=== PATIENT | male | born 1965 | race Caucasian/White ===

== ENCOUNTER 2022-09-01 10:21 | Emergency (ER) | payer MEDICARE, MEDICAID, SELFPAY ==
[2022-09-01 10:21] VITALS: BP 130/63; PULSE 91; RESP 18; TEMP 36.8; O2SAT 94; BMI 36.5
--- NOTE | 2022-09-01 10:41 | PC.NURSE ---
JESUS ALBARADO at
--- NOTE | 2022-09-01 10:49 | HMH.EDGENADL ---
Discharge Plan Disposition Chief Complaint: Anxiety Referrals Follow up/Referrals: Andrei Adams MD [Primary Care Provider] - See instructions Activity Restrictions/Add. Instructions Additional Instructions/Restrictions: At this time was felt you are safe to be discharged from the emergency department. If new or worsening symptoms please not hesitate to return for continued evaluation. Clinical Impressions Clinical Impression: Anxiety Discharge ED Provider: Francis Mejia General Adult HPI General Chief complaint: Anxiety Stated complaint: anxiety Time Seen by Provider: 09/01/22 10:49 History of Present Illness HPI narrative: Patient is a 56-year-old male with no pertinent past medical history who presents emergency department for not wanting to go back to his assisted living facility at [facility]. History is obtained by patient at bedside he states that he has been at multiple assisted living facilities before, he has been at the [facility] for which he got kicked out for masturbating in front of other residents. Living at [facility] is causing him significant anxiety. Patient has anxiety at baseline. Due to refusing to return to [facility] while grocery shopping EMS was called and he presents here for continued evaluation. He has no other acute complaints at this time. Related Data Allergies Allergy/AdvReac Type Severity Reaction Status Date / Time pollen extracts Allergy Verified 09/01/22 11:02 [facility] Disclaimer: The information contained in this section may have been updated after the patient was seen, as this information can be updated by other users. Social History Smoking Status: Smoker, status unknown alcohol intake: former current occupational status: unemployed Travel in the last 8 weeks: None ROS Obtained: Yes Systems reviewed as appropriate & no additional complaints except as documented Physical Exam General General appearance: alert and in no apparent distress Head Head exam: atraumatic and normocephalic Eye Eye exam: Present PERRL and EOMI ENT ENT exam: Present mucous membranes moist Neck Neck exam: Present normal inspection Chest Chest inspection: Present normal inspection and symmetric chest wall rise Respiratory Respiratory exam: Present normal lung sounds bilaterally; Absent respiratory distress Cardiovascular Cardiovascular exam: Present regular rate and normal rhythm Abdominal Exam Abdominal exam: Present soft; Absent tenderness Extremities Exam Extremities exam: Present normal inspection Neurological Exam Neurological exam: Present alert and oriented X3 Psychiatric Psychiatric exam: Present normal affect Skin Skin exam: Present warm and dry Medical Decision Making Kenan Inquiry Pt receiving controlled substance: No Vital Signs: 09/01/22 10:21 Temperature 98.3 F Temperature Source Oral Pulse Rate [Right Radial] 91 H Respiratory Rate 18 Blood Pressure [Right Arm] 130/63 Blood Pressure Mean [Right Arm] 85 Blood Pressure Position [Right Arm] Sitting 02 Sat by Pulse Oximetry 94 L Oxygen Delivery Method Room Air Orders (Tests/Meds): ED MEDICATIONS Discontinued Medications Generic Name Dose Route Start Last Admin Trade Name Freq PRN Reason Stop Dose Admin Hydroxyzine Pamoate 50 mg 09/01/22 10:47 09/01/22 11:04 Hydroxyzine Pamoate 25mg Capsule PO 09/01/22 10:48 50 mg ONCE ONE Administration ECG Data Tracing #1: Independently interpreted by me, rate is 81, rhythm is regular, axis is normal, QTC 397, no significant ST elevation or depression in anatomical contiguous leads. Medical Decision Narrative: In summary patient is a 56-year-old male with past medical history described above who presents emergency department for evaluation of anxiety related to his living situation. Patient is hemodynamically stable and nontoxic-appearing upon arrival, afebrile. Patient states that since he did not have to ret
--- NOTE | 2022-09-01 10:52 | PC.NURSE ---
spoke with davon in care management r/t pt stating he does not [facility] Sheldon states if pt does not meet admission criteria pt will have to go [facility] and the staff there can begin to see about possible transfer to another facility notified ER
--- NOTE | 2022-09-01 11:16 | ECG_ITS ---
APPROVED REPORT Exam: Resting ECG HR:81 bpm ECG Measurements Heart Rate 81 AXES FL 168 P 41 QRSd 102 QRS 69 QT 360 T 59 QTc 397 Conclusion SINUS RHYTHM NORMAL ECG UNCONFIRMED REPORT Electronically signed by : Dave Ann MD 09/01/2022 16:42:13
--- NOTE | 2022-09-01 11:24 | PC.NURSE ---
[facility] CALLED FOR TRANSPORTATION
[2022-09-01 12:12] VITALS: BP 93/58; PULSE 88; RESP 20; O2SAT 96
--- NOTE | 2022-09-01 12:37 | PC.NURSE ---
meal tray ordered
--- NOTE | 2022-09-01 12:37 | PC.NURSE ---
multiple calls to [facility] and then [facility] for transport back to [facility]
[2022-09-01 13:52] VITALS: BP 128/70; PULSE 70; RESP 16; TEMP 36.8; O2SAT 98
== END 2022-09-01 13:58 | disposition home or self-care (01) ==
PROVIDERS: Emergency Provider Emergency Medicine; PCP Emergency Medicine
DX: F41.9 Anxiety disorder, unspecified (principal); F17.210 Nicotine dependence, cigarettes, uncomplicated; Z79.899 Other long term (current) drug therapy; Z88.8 Allergy status to other drugs, medicaments and biological substances
CPT/HCPCS: 93005; 99284

== ENCOUNTER 2022-09-18 11:24 | Emergency (ER) | payer MEDICARE, MEDICAID, SELFPAY ==
[2022-09-18] VITALS (7 sets, daily range): BP systolic 94–132; BP diastolic 47–68; PULSE 67–76; RESP 16–22; TEMP 36.7–36.8; O2SAT 96–99; BMI 33.4
--- NOTE | 2022-09-18 11:29 | HMH.EDGENADL ---
Discharge Plan Disposition Patient Disposition: Home, Self-Care Condition: Good Prescriptions Prescriptions: New ondansetron 4 mg tablet,disintegrating 4 mg PO DAILY Qty: 30 0RF Activity Restrictions/Add. Instructions Additional Instructions/Restrictions: Please follow up with your primary care physician in 2-3 days for further management. Please use zofran as needed for nausea and vomiting. Please return to ED if symptoms don't improve, bloody stools, bloody vomiting or any other concerns. Clinical Impressions Clinical Impression: Viral gastroenteritis Instructions Patient Instructions: DI for Viral Gastroenteritis -- Adult Print Language Print Language: Macedonian Discharge ED Provider: Majo Reed Adult HPI General Chief complaint: Nausea/Vomiting/Diarrhea Stated complaint: n/v/d Time Seen by Provider: 09/18/22 11:29 Mode of Arrival: Ambulatory Source of Information: Patient Limitations: No Limitations History of Present Illness HPI narrative: Clement is a 56 yo presents to the ED for N/V/D since yesterday. Patient reports one episode of non bloody non bilious emesis and x3 episodes of non bloody diarrhea. Patient is eating and drinking and reports he would like chicken broth. He denies any fevers, cough, chest pain, dyspnea, abdominal pain or other symptoms at this time. No known sick contacts or COVID exposures. No bloody stools or emesis. complaint: N/V/D Onset (ago): day(s) Related Data Previous Rx's Medication Instructions Recorded ondansetron 4 mg disintegrating 4 mg PO DAILY #30 tabs 09/18/22 tablet Allergies Allergy/AdvReac Type Severity Reaction Status Date / Time pollen extracts Allergy Verified 09/01/22 11:02 [facility] Disclaimer: The information contained in this section may have been updated after the patient was seen, as this information can be updated by other users. Social History Smoking Status: Never smoker alcohol intake: former current occupational status: unemployed Travel in the last 8 weeks: None ROS Obtained: Yes All systems reviewed & no additional complaints except as documented Physical Exam General General appearance: alert and in no apparent distress Head Head exam: atraumatic and normal inspection ENT ENT exam: Present normal exam, normal oropharynx and mucous membranes moist Neck Neck exam: Present normal inspection and full ROM Chest Chest inspection: Present normal inspection and symmetric chest wall rise Respiratory Respiratory exam: Present normal lung sounds bilaterally Cardiovascular Cardiovascular exam: Present regular rate and normal rhythm Abdominal Exam Abdominal exam: Present soft and normal bowel sounds Extremities Exam Extremities exam: Present normal inspection and full ROM Back Exam Back exam: Present normal inspection and full ROM Neurological Exam Neurological exam: Present alert and oriented X3 Psychiatric Psychiatric exam: Present normal affect Medical Decision Making Medical Records Medical records reviewed: Yes I reviewed the patient's medical records. Kenan Inquiry Pt receiving controlled substance: No Vital Signs: 09/18/22 11:25 09/18/22 11:30 09/18/22 12:02 Temperature 98.1 F Temperature Source Oral Pulse Rate 72 76 Pulse Rate [Left Radial] 73 Respiratory Rate 17 18 22 Blood Pressure 107/58 L 114/47 L Blood Pressure [Right Arm] 132/68 Blood Pressure Mean 80 85 Blood Pressure Mean [Right Arm] 89 Blood Pressure Source [Right Arm] Automatic Cuff Blood Pressure Position [Right Arm] Sitting 02 Sat by Pulse Oximetry 99 97 96 Oxygen Delivery Method Room Air 09/18/22 12:30 09/18/22 13:00 Temperature Temperature Source Pulse Rate 71 72 Pulse Rate [Left Radial] Respiratory Rate Blood Pressure 94/48 L 102/54 L Blood Pressure [Right Arm] Blood Pressure Mean 65 70 Blood Pressure Mean [Right Arm] Blood Pres
--- NOTE | 2022-09-18 12:27 | PC.NURSE ---
rounded on pt at this time and updated on POC. No new needs
[2022-09-18 12:47] LABS: Coronavirus 19, PCR Not Detected (NotDetected); Influenza A, PCR Not Detected (NotDetected); Influenza B, PCR Not Detected (NotDetected)
[2022-09-18 12:55] LABS: Basophils % 0.4 % (0.1-2.0); Eosinophils # 0.2 K/mm3 (0.0-0.4); Eosinophils % 1.8 % (0.1-12.0); Hematocrit 43.2 % (42.0-52.0); Hemoglobin 14.1 g/dL (14.1-18.0); Lymphocytes # 1.3 K/mm3 (0.7-4.5); Lymphocytes % 13.6 % (10-50); Mean Corpuscular HGB Conc 32.7 g/dL (31.8-35.4); Mean Corpuscular Hemoglobin 28.1 pg (27.0-31.2); Mean Corpuscular Volume 86.1 fl (80-94); Monocytes # 0.5 K/mm3 (0.1-1.0); Monocytes % 5.3 % (1.7-9.3); Neutrophils # 7.6 K/mm3 (1.8-7.8); Neutrophils % 78.8 % (37.0-80.0); Platelet Count 391 K/mm3 (142-424); Red Blood Count 5.02 M/mm3 (4.60-6.20); Red Cell Distribution Width 14.2 % (11.5-17.5); White Blood Count 9.6 K/mm3 (4.8-10.8)
[2022-09-18 12:57] LABS: Chloride 102 mmol/L (98-107)
[2022-09-18 12:58] LABS: Potassium 3.3 mmoL/L (3.5-5.1); Sodium 138 mmol/L (136-145)
[2022-09-18 13:00] LABS: Alanine Aminotransferase 47 U/L (12-78); Alkaline Phosphatase 131 U/L (38-126); Aspartate Amino Transferase 34 U/L (17-59); Bilirubin,Total 0.6 mg/dl (0.2-1.3); Blood Urea Nitrogen 9 mg/dl (9-20); Creatinine Clearance Estimated 170 mL/min (50-200); Estimated Glomerular Filt Rate 118 ml/min (>60); GFR (African American) 142 ML/MIN (>60)
[2022-09-18 13:01] LABS: Albumin Level 4.1 g/dl (3.5-5.0); Albumin/Globulin Ratio 1.2 (1.1-1.8); Anion Gap 13.3 mEq/L (5-15); Calcium 8.3 mg/dl (8.4-10.2); Carbon Dioxide 26 mmol/L (22.0-30.0); Globulin 3.3 g/dL (1.3-3.2); Glucose 110 mg/dl (74-100); Total Protein,Serum 7.4 g/dl (6.3-8.2)
== END 2022-09-18 14:00 | disposition home or self-care (01) ==
LOC: ER 13:11
PROVIDERS: Emergency Provider Student in an Organized Health Care Education/Training Program
DX: K52.9 Noninfective gastroenteritis and colitis, unspecified (principal); Z20.822 Contact with and (suspected) exposure to COVID-19
CPT/HCPCS: 80053; 85025; 99284; C9803; U0003; U0005

== ENCOUNTER 2022-11-26 11:38 | Emergency (ER) | payer MEDICARE, OTHER, SELFPAY ==
[2022-11-26 11:40] VITALS: BP 142/72; PULSE 83; RESP 16; TEMP 36.6; O2SAT 97; BMI 33.4
[2022-11-26 12:00] VITALS: BP 140/84; PULSE 83; RESP 20; O2SAT 98
--- NOTE | 2022-11-26 12:08 | HMH.EDGENADL ---
Discharge Plan Disposition Patient Disposition: Home, Self-Care Condition: Good Chief Complaint: Anxiety Prescriptions Prescriptions: No Action ondansetron 4 mg tablet,disintegrating 4 mg PO DAILY Qty: 30 0RF Referrals Follow up/Referrals: Provider,MD Fidel [Primary Care Provider] - See instructions Andrei Adams MD [Staff Physician] - See instructions (Needs follow up for possible other placement and anxiety meds) Clinical Impressions Clinical Impression: Acute anxiety Discharge ED Provider: Latrell Robison General Adult HPI General Chief complaint: Anxiety Stated complaint: anxiety Time Seen by Provider: 11/26/22 11:46 Mode of Arrival: EMS Source of Information: Patient Limitations: No Limitations Description of Symptoms (Recalled from ER Triage Doc. by RN): Pt presents via EMS after having an anxiety attack at place of residence. History of Present Illness HPI narrative: This is a 56-year-old male with history of depression and anxiety who is presenting with anxiety attack. Patient states that he has been unhappy with his living situation at [facility] for the past few months. He states he is concerned about food scarcity, laundry services, toilets not working, residents taking advantage of him, and attention of staff. Because of this, he states that his anxiety has been worsening over the past few months. Today, he was at a gas station when he had acute anxiety attack. Denies shortness of breath, nausea, vomiting, chills, chest pain, abdominal pain, or any other concerns. His anxiety attack consisted of tearfulness, hyperventilation, no loss of consciousness. He called EMS to avoid going back to [facility]. Related Data Previous Rx's Medication Instructions Recorded ondansetron 4 mg disintegrating 4 mg PO DAILY #30 tabs 09/18/22 tablet Allergies Allergy/AdvReac Type Severity Reaction Status Date / Time pollen extracts Allergy Verified 09/01/22 11:02 [facility] Disclaimer: The information contained in this section may have been updated after the patient was seen, as this information can be updated by other users. Social History Smoking Status: Never smoker alcohol intake: former current occupational status: unemployed Travel in the last 8 weeks: None ROS Obtained: Yes All systems reviewed & no additional complaints except as documented Physical Exam General General appearance: obese and other (Disheveled, no acute distress. Tolerating p.o. intake) Head Head exam: atraumatic, normocephalic and normal inspection Eye Eye exam: Present normal appearance, PERRL and EOMI ENT ENT exam: Present normal exam, normal oropharynx, mucous membranes moist, TM's normal bilaterally and normal external ear exam Neck Neck exam: Present normal inspection, full ROM and trachea midline; Absent meningismus or lymphadenopathy Chest Chest inspection: Present normal inspection and symmetric chest wall rise; Absent tenderness Respiratory Respiratory exam: Present normal lung sounds bilaterally; Absent respiratory distress Cardiovascular Cardiovascular exam: Present regular rate and normal rhythm; Absent JVD Abdominal Exam Abdominal exam: Present soft and normal bowel sounds; Absent distention, tenderness or guarding Extremities Exam Extremities exam: Present normal inspection, full ROM and normal capillary refill; Absent calf tenderness Back Exam Back exam: Present normal inspection; Absent tenderness Neurological Exam Neurological exam: Present alert and oriented X3 Psychiatric Psychiatric exam: Present normal affect, normal mood and depressed; Absent agitated, anxious or flat affect Skin Skin exam: Present warm, dry, intact and normal color Lymphatic Lymphatic Findings: no adenopathy Medical Decision Making Medical Records Medical records reviewed: Yes I reviewed the patient's medical records. Kenan Inquiry Pt receiving controlled s
--- NOTE | 2022-11-26 12:18 | PC.NURSE ---
placed call to gael cruz for pt transport back to [facility]
--- NOTE | 2022-11-26 12:29 | PC.NURSE ---
[facility] staff notified of pt ready for d/c
[2022-11-26 12:36] VITALS: BP 132/81; PULSE 75; RESP 16; TEMP 36.6; O2SAT 97
== END 2022-11-26 13:46 | disposition home or self-care (01) ==
PROVIDERS: Emergency Provider Emergency Medicine
DX: F41.9 Anxiety disorder, unspecified (principal)
CPT/HCPCS: 99283

== ENCOUNTER 2023-01-31 13:58 | Emergency (ER) | payer MEDICARE, OTHER, SELFPAY ==
[2023-01-31 14:01] VITALS: BP 157/91; PULSE 86; RESP 17; TEMP 36.6; O2SAT 98; BMI 30.4
--- NOTE | 2023-01-31 14:01 | ECG_ITS ---
APPROVED REPORT Exam: Resting ECG HR:81 bpm ECG Measurements Heart Rate 81 AXES MI 167 P 43 QRSd 94 QRS 80 QT 358 T 71 QTc 395 Conclusion SINUS RHYTHM NORMAL ECG UNCONFIRMED REPORT Electronically signed by : Dave Ann MD 02/01/2023 21:40:35
--- NOTE | 2023-01-31 14:38 | XR_ITS ---
FINAL REPORT CLINICAL HISTORY: chest pain FINDINGS: SINGLE-VIEW CHEST The heart size is normal. The mediastinum is normal. There is a right base opacity, may represent atelectasis or pneumonia. There is no pneumothorax. IMPRESSION: Right base atelectasis versus pneumonia. Reviewed, Interpreted and Dictated by Henok Barragan III, MD Transcribed by Daksha Julian Authenticated and [facility]
--- NOTE | 2023-01-31 14:53 | HMH.EDGENADL ---
Discharge Plan Disposition Patient Disposition: Home, Self-Care Condition: Good Prescriptions Prescriptions: No Action ondansetron 4 mg tablet,disintegrating 4 mg PO DAILY Qty: 30 0RF Referrals Follow up/Referrals: Andrei Adams MD [Primary Care Provider] - See instructions Clinical Impressions Clinical Impression: Atypical chest pain Instructions Patient Instructions: DI for Atypical Chest Pain Print Language Print Language: Kinyarwanda Discharge ED Provider: Isai Weaver General Adult HPI General Chief complaint: Anxiety Stated complaint: Anxiety Time Seen by Provider: 01/31/23 17:50 Mode of Arrival: Ambulatory Source of Information: Patient Limitations: No Limitations Description of Symptoms (Recalled from ER Triage Doc. by RN): pt to ED with an episode of left anterior chest pain that occured when he became upset at his residential facility when he was told he couldnt get back into his room until around 4pm today because they are spraying for bugs. pt stated his pain has mostly resolved and reports anxiety at this time History of Present Illness HPI narrative: Patient presents to the emergency department with anterior chest pain which started around 1:00 this afternoon. The patient states that he was at his assisted living facility when he was instructed he had to remove himself from his room for the room to be fumigated for bedbugs. The patient went out in the hallway and was standing and had a sudden onset of chest pain. He states that he was upset that he was not going to be able to return to his room until 4 PM. He states he has some associated shortness of breath. Denies any fever, chills, cough, congestion, nausea or vomiting. Denies any chest pain at this time Related Data Previous Rx's Medication Instructions Recorded ondansetron 4 mg disintegrating 4 mg PO DAILY #30 tabs 09/18/22 tablet Allergies Allergy/AdvReac Type Severity Reaction Status Date / Time pollen extracts Allergy Verified 09/01/22 11:02 [facility] Disclaimer: The information contained in this section may have been updated after the patient was seen, as this information can be updated by other users. Social History Smoking Status: Never smoker alcohol intake: former current occupational status: unemployed Travel in the last 8 weeks: None ROS Obtained: Yes All systems reviewed & no additional complaints except as documented Cardiovascular Cardiovascular: Reports chest pain Respiratory Respiratory: Reports shortness of breath Physical Exam General General appearance: alert and in no apparent distress Respiratory Respiratory exam: Present normal lung sounds bilaterally Cardiovascular Cardiovascular exam: Present regular rate, normal rhythm and normal heart sounds Neurological Exam Neurological exam: Present alert and oriented X3 Medical Decision Making Kenan Inquiry Pt receiving controlled substance: No Vital Signs: 01/31/23 14:01 01/31/23 15:00 01/31/23 16:30 Temperature 97.8 F Temperature Source Oral Pulse Rate 88 79 Pulse Rate [Left Radial] 86 Respiratory Rate 17 16 Blood Pressure 126/79 136/77 Blood Pressure [Right Arm] 157/91 H Blood Pressure Mean 96 96 Blood Pressure Mean [Right Arm] 113 Blood Pressure Source [Right Arm] Automatic Cuff Blood Pressure Position [Right Arm] Sitting 02 Sat by Pulse Oximetry 98 96 95 Oxygen Delivery Method Room Air Room Air 01/31/23 17:45 Temperature 97.8 F Temperature Source Oral Pulse Rate 87 Pulse Rate [Left Radial] Respiratory Rate 20 Blood Pressure 122/74 Blood Pressure [Right Arm] Blood Pressure Mean Blood Pressure Mean [Right Arm] Blood Pressure Source [Right Arm] Blood Pressure Position [Right Arm] 02 Sat by Pulse Oximetry Oxygen Delivery Method Room Air Lab Data Lab results reviewed: Yes I reviewed the patient's lab results. Lab Result
[2023-01-31 15:00] VITALS: BP 126/79; PULSE 88; RESP 16; O2SAT 96
[2023-01-31 15:02] LABS: Alanine Aminotransferase 48 U/L (12-78); Albumin Level 4.6 g/dl (3.5-5.0); Albumin/Globulin Ratio 1.4 (1.1-1.8); Alkaline Phosphatase 135 U/L (38-126); Aspartate Amino Transferase 45 U/L (17-59); Bilirubin,Total 0.8 mg/dl (0.2-1.3); Blood Urea Nitrogen 10 mg/dl (9-20); Calcium 8.9 mg/dl (8.4-10.2); Carbon Dioxide 23 mmol/L (22.0-30.0); Chloride 98 mmol/L (98-107); Creatinine Clearance Estimated 153 mL/min (50-200); Estimated Glomerular Filt Rate 117 ml/min (>60); GFR (African American) 142 ML/MIN (>60); Globulin 3.3 g/dL (1.3-3.2); Glucose 146 mg/dl (74-100); Sodium 139 mmol/L (136-145); Total Protein,Serum 7.9 g/dl (6.3-8.2)
[2023-01-31 15:13] LABS: Basophils % 0.3 % (0.1-2.0); Eosinophils # 0.2 K/mm3 (0.0-0.4); Eosinophils % 1.4 % (0.1-12.0); Hematocrit 44.1 % (42.0-52.0); Hemoglobin 14.2 g/dL (14.1-18.0); Lymphocytes # 1.8 K/mm3 (0.7-4.5); Lymphocytes % 17.7 % (10-50); Mean Corpuscular HGB Conc 32.1 g/dL (31.8-35.4); Mean Corpuscular Hemoglobin 27.6 pg (27.0-31.2); Mean Corpuscular Volume 85.9 fl (80-94); Mean Platelet Volume 7.6 fl (7.4-10.4); Monocytes # 0.5 K/mm3 (0.1-1.0); Monocytes % 5.1 % (1.7-9.3); Neutrophils # 7.7 K/mm3 (1.8-7.8); Neutrophils % 75.5 % (37.0-80.0); Platelet Count 396 K/mm3 (142-424); Red Blood Count 5.13 M/mm3 (4.60-6.20); Red Cell Distribution Width 14.2 % (11.5-17.5); White Blood Count 10.3 K/mm3 (4.8-10.8)
[2023-01-31 16:30] VITALS: BP 136/77; PULSE 79; O2SAT 95
[2023-01-31 16:45] LABS: Troponin I < 0.01 ng/ml (0.00-0.034)
--- NOTE | 2023-01-31 17:14 | PC.NURSE ---
called [facility] to let them no pt was ready for discharge
[2023-01-31 17:20] LABS: NT Pro Brain Natriuretic Pep. < 20.0 pg/mL (0-125)
--- NOTE | 2023-01-31 17:40 | PC.NURSE ---
spoke to ventura from [facility] states the have one at the facility with a vehicle, nor does [facility] awaiting telecom manager to respond and let them know what they need to do
[2023-01-31 17:45] VITALS: BP 122/74; PULSE 87; RESP 20; TEMP 36.6; O2SAT 97
== END 2023-01-31 17:50 | disposition home or self-care (01) ==
PROVIDERS: Emergency Provider Emergency Medicine; PCP Emergency Medicine
DX: R07.89 Other chest pain (principal); F41.9 Anxiety disorder, unspecified
CPT/HCPCS: 71045; 80053; 83880; 84484; 85025; 93005; 99285

== ENCOUNTER 2023-07-19 10:09 | Emergency (ER) | payer MEDICARE, OTHER, SELFPAY ==
[2023-07-19 10:13] VITALS: BP 122/77; PULSE 90; RESP 17; TEMP 36.5; O2SAT 92; BMI 36.8
[2023-07-19 10:22] LABS: POC Glucose,Bedside 107 (70-110)
[2023-07-19 10:30] VITALS: BP 144/72; PULSE 92; O2SAT 95
--- NOTE | 2023-07-19 10:31 | HMH.EDGENADL ---
Discharge Plan Disposition Patient Disposition: Home, Self-Care Chief Complaint: Hyper/Hypoglycemia Prescriptions Prescriptions: No Action quetiapine 100 mg tablet 100 mg PO HS Qty: 30 11RF lisinopril 10 mg tablet 10 mg PO DAILY Qty: 30 11RF divalproex 500 mg tablet,delayed release (DR/EC) 500 mg PO BID Qty: 60 11RF ondansetron 4 mg tablet,disintegrating 4 mg PO DAILY Qty: 30 0RF hydroxyzine pamoate 50 mg capsule 50 mg PO DAILY simvastatin 40 mg tablet 40 mg PO DAILY pantoprazole 20 mg tablet,delayed release (DR/EC) 20 mg PO DAILY azelastine 137 mcg (0.1 %) aerosol,spray 137 mcg INTRANASAL DAILY hydrochlorothiazide 12.5 mg tablet 12.5 mg PO DAILY Activity Restrictions/Add. Instructions Additional Instructions/Restrictions: Call your family doctor to establish care for this visit to the emergency department and schedule follow-up within 48 hours to ensure improvement. If you have any worsening of your condition or any other concerning signs or symptoms, return to the emergency department or your primary care doctor for further evaluation. Clinical Impressions Clinical Impression: Episode of generalized weakness Instructions Patient Instructions: DI for Hyperglycemia -- Adult Discharge ED Provider: Latrell Robison General Adult HPI General Chief complaint: Hyper/Hypoglycemia Stated complaint: dizzy Time Seen by Provider: 07/19/23 10:12 Mode of Arrival: EMS Source of Information: Patient and EMS Limitations: No Limitations Description of Symptoms (Recalled from ER Triage Doc. by RN): 57 yo M presents to ED with c/o low blood sugar. pt was walking down the street and made it to a bench in front of fire station. pt reports that his blood glucose was low. pt reports he only had 2 sausage links, 2 biscuit and gravy, orange and a glass of milk. History of Present Illness HPI narrative: 57-year-old male history of hypoglycemia, anxiety, hypertension presenting with multiple complaints. Patient states that he is not getting fed enough at [employer], so he went to local store to get snacks. He states that he thought his blood sugar was dropping because he had blurry vision. No syncope. No chest pain, shortness of breath, nausea or vomiting. Sat down on a bench outside the fire department. Started eating his snacks and felt better. Fire department brought him to the emergency department for further evaluation. Patient without complaints on arrival, eating funyuns Related Data Home Medications Medication Instructions Recorded Confirmed azelastine 137 mcg (0.1 %) nasal 137 mcg intranasal DAILY 07/19/23 07/19/23 spray aerosol hydrochlorothiazide 12.5 mg tablet 12.5 mg PO DAILY 07/19/23 07/19/23 hydroxyzine pamoate 50 mg capsule 50 mg PO DAILY 07/19/23 07/19/23 pantoprazole 20 mg tablet,delayed 20 mg PO DAILY 07/19/23 07/19/23 release simvastatin 40 mg tablet 40 mg PO DAILY 07/19/23 07/19/23 Previous Rx's Medication Instructions Recorded divalproex 500 mg tablet,delayed 500 mg PO BID #60 tabs 02/23/23 release lisinopril 10 mg tablet 10 mg PO DAILY #30 tabs 02/23/23 quetiapine 100 mg tablet 100 mg PO HS #30 tabs 02/23/23 ondansetron 4 mg disintegrating 4 mg PO DAILY #30 tabs 07/13/23 tablet Allergies Allergy/AdvReac Type Severity Reaction Status Date / Time pollen extracts Allergy Verified 07/19/23 10:20 [facility] Disclaimer: The information contained in this section may have been updated after the patient was seen, as this information can be updated by other users. Social History Smoking Status: Never smoker alcohol intake: former current occupational status: unemployed Travel in the last 8 weeks: None ROS Obtained: Yes All systems reviewed & no additional complaints except as documented Physical Exam General General appearance: alert, in no apparent distress and ot
[2023-07-19 10:46] LABS: Basophils % 0.6 % (0.1-2.0); Eosinophils # 0.1 K/mm3 (0.0-0.4); Eosinophils % 1.1 % (0.1-12.0); Hematocrit 40.9 % (42.0-52.0); Hemoglobin 14.4 g/dL (14.1-18.0); Lymphocytes # 1.6 K/mm3 (0.7-4.5); Mean Corpuscular HGB Conc 35.1 g/dL (31.8-35.4); Mean Corpuscular Hemoglobin 31.2 pg (27.0-31.2); Mean Platelet Volume 7.5 fl (7.4-10.4); Monocytes # 0.5 K/mm3 (0.1-1.0); Monocytes % 6.6 % (1.7-9.3); Neutrophils # 5.1 K/mm3 (1.8-7.8); Neutrophils % 69.8 % (37.0-80.0); Platelet Count 172 K/mm3 (142-424); Red Cell Distribution Width 13.9 % (11.5-17.5); White Blood Count 7.4 K/mm3 (4.8-10.8)
[2023-07-19 11:01] VITALS: BP 111/53; PULSE 90; RESP 18; O2SAT 93
[2023-07-19 11:07] LABS: Anion Gap 15.6 mEq/L (5-15); Bilirubin,Total 0.6 mg/dl (0.2-1.3); Blood Urea Nitrogen 10 mg/dl (9-20); Calcium 8.8 mg/dl (8.4-10.2); Carbon Dioxide 27 mmol/L (22.0-30.0); Chloride 98 mmol/L (98-107); Creatinine Clearance Estimated 144 mL/min (50-200); Estimated Glomerular Filt Rate 88 ml/min (>60); GFR (African American) 106 ML/MIN (>60); Glucose 118 mg/dl (74-100); Potassium 3.6 mmoL/L (3.5-5.1); Sodium 137 mmol/L (136-145)
[2023-07-19 11:08] LABS: Alanine Aminotransferase 35 U/L (12-78); Albumin Level 4.2 g/dl (3.5-5.0); Albumin/Globulin Ratio 1.3 (1.1-1.8); Alkaline Phosphatase 69 U/L (38-126); Aspartate Amino Transferase 36 U/L (17-59); Globulin 3.2 g/dL (1.3-3.2); Total Protein,Serum 7.4 g/dl (6.3-8.2)
[2023-07-19 11:31] VITALS: BP 112/72; PULSE 87; RESP 20; O2SAT 94
--- NOTE | 2023-07-19 11:48 | PC.NURSE ---
call made to [facility] for pt discharge. staff stated they would work on getting a ride for pt back to facility.
--- NOTE | 2023-07-19 11:49 | PC.NURSE ---
I s/w pt's sister, Claire Pittman, and gave update. She is unable to car pick up driver pt and will check on a local friend to see if they are able to pick him up.
[2023-07-19 12:01] VITALS: BP 122/58; PULSE 87; RESP 20; O2SAT 94
[2023-07-19 12:15] VITALS: BP 123/68; PULSE 87; RESP 20; TEMP 36.6; O2SAT 96
== END 2023-07-19 12:16 | disposition home or self-care (01) ==
PROVIDERS: Emergency Provider Emergency Medicine
DX: R53.1 Weakness (principal); R73.9 Hyperglycemia, unspecified; R42 Dizziness and giddiness; I10 Essential (primary) hypertension; F41.9 Anxiety disorder, unspecified
CPT/HCPCS: 80053; 82962; 85025; 96360; 99284

== ENCOUNTER 2023-08-05 23:09 | Emergency (ER) | payer MEDICARE, OTHER, SELFPAY ==
[2023-08-05 23:06] VITALS: RESP 18; TEMP 36.9; O2SAT 97; BMI 36.8
[2023-08-05 23:13] VITALS: BP 114/86; PULSE 88; RESP 18
--- NOTE | 2023-08-05 23:13 | XR_ITS ---
PROCEDURE INFORMATION: Exam: XR Right Humerus Exam date and time: 08/05/2023 11:17 PM Age: 57 years old Clinical indication: Pain; Upper arm; Right; Additional info: Chronic pain TECHNIQUE: Imaging protocol: Radiologic exam of the right humerus. Views: 2 or more views. COMPARISON: CR XR CHEST PORTABLE 01/31/2023 2:43 PM FINDINGS: Bones/joints: Normal. Soft tissues: Normal. IMPRESSION: No acute findings.
[2023-08-05 23:14] VITALS: RESP 18; TEMP 36.9; O2SAT 97; BMI 36.8
--- NOTE | 2023-08-05 23:24 | HMH.EDGENADL ---
Discharge Plan Disposition Patient Disposition: Home, Self-Care Chief Complaint: PAIN Prescriptions Prescriptions: No Action quetiapine 100 mg tablet 100 mg PO HS Qty: 30 11RF lisinopril 10 mg tablet 10 mg PO DAILY Qty: 30 11RF divalproex 500 mg tablet,delayed release (DR/EC) 500 mg PO BID Qty: 60 11RF ondansetron 4 mg tablet,disintegrating 4 mg PO DAILY Qty: 30 0RF hydroxyzine pamoate 50 mg capsule 50 mg PO DAILY simvastatin 40 mg tablet 40 mg PO DAILY pantoprazole 20 mg tablet,delayed release (DR/EC) 20 mg PO DAILY azelastine 137 mcg (0.1 %) aerosol,spray 137 mcg INTRANASAL DAILY hydrochlorothiazide 12.5 mg tablet 12.5 mg PO DAILY Clinical Impressions Clinical Impression: Arm pain, right Discharge ED Provider: Pritesh Reese General Adult HPI General Chief complaint: PAIN Stated complaint: Arm pain Time Seen by Provider: 08/05/23 23:13 Mode of Arrival: EMS Source of Information: Patient Limitations: No Limitations Description of Symptoms (Recalled from ER Triage Doc. by RN): Patient states he has been having pain in right upper arm. Denies any falls or injuries. Worse when he lays on right side. History of Present Illness HPI narrative: 57-year-old male presents from [facility] with complaints of arm pain. He reports that his right upper arm hurts when he lays on it at night. He reports that he normally lays on his right side because it helps him sleep better. He reports pain is a been going on for the last few days. He reports that subsides when he stops laying on it. He denies any numbness, tingling, swelling of the extremity. Reports no history of trauma or other issues to the arm. Reports no other concerns. Related Data Home Medications Medication Instructions Recorded Confirmed azelastine 137 mcg (0.1 %) nasal 137 mcg intranasal DAILY 07/19/23 08/05/23 spray aerosol hydrochlorothiazide 12.5 mg tablet 12.5 mg PO DAILY 07/19/23 08/05/23 hydroxyzine pamoate 50 mg capsule 50 mg PO DAILY 07/19/23 08/05/23 pantoprazole 20 mg tablet,delayed 20 mg PO DAILY 07/19/23 08/05/23 release simvastatin 40 mg tablet 40 mg PO DAILY 07/19/23 08/05/23 Previous Rx's Medication Instructions Recorded divalproex 500 mg tablet,delayed 500 mg PO BID #60 tabs 02/23/23 release lisinopril 10 mg tablet 10 mg PO DAILY #30 tabs 02/23/23 quetiapine 100 mg tablet 100 mg PO HS #30 tabs 02/23/23 ondansetron 4 mg disintegrating 4 mg PO DAILY #30 tabs 07/13/23 tablet Allergies Allergy/AdvReac Type Severity Reaction Status Date / Time pollen extracts Allergy Verified 07/19/23 10:20 [facility] Disclaimer: The information contained in this section may have been updated after the patient was seen, as this information can be updated by other users. Social History Smoking Status: Never smoker alcohol intake: former current occupational status: unemployed Travel in the last 8 weeks: None ROS Obtained: Yes All systems reviewed & no additional complaints except as documented Physical Exam General General appearance: alert and in no apparent distress Head Head exam: atraumatic and normocephalic Eye Eye exam: Present normal appearance, PERRL and EOMI ENT ENT exam: Present normal oropharynx and normal external ear exam Neck Neck exam: Present normal inspection and full ROM Chest Chest inspection: Present normal inspection and symmetric chest wall rise; Absent tenderness Respiratory Respiratory exam: Present normal lung sounds bilaterally; Absent respiratory distress Cardiovascular Cardiovascular exam: Present regular rate and normal rhythm Abdominal Exam Abdominal exam: Present soft; Absent distention, tenderness or guarding Extremities Exam Extremities exam: Present normal inspection, full ROM, normal capillary refill and other (Palpable radial and ulnar pulse, no swelling of the extremity,
[2023-08-05 23:34] VITALS: BP 112/53; PULSE 88; RESP 18; TEMP 36.9
== END 2023-08-05 23:48 | disposition home or self-care (01) ==
PROVIDERS: Emergency Provider Emergency Medicine; PCP Emergency Medicine
DX: M79.601 Pain in right arm (principal); I10 Essential (primary) hypertension
CPT/HCPCS: 73060; 99283

== ENCOUNTER 2023-08-21 16:56 | Emergency (ER) | payer MEDICARE, OTHER, SELFPAY ==
[2023-08-21 16:57] VITALS: BP 119/62; PULSE 88; RESP 15; TEMP 36.6; O2SAT 97; BMI 33.4
--- NOTE | 2023-08-21 17:44 | HMH.EDGENADL ---
Discharge Plan Disposition Patient Disposition: Home, Self-Care Prescriptions Prescriptions: No Action quetiapine 100 mg tablet 100 mg PO HS Qty: 30 11RF lisinopril 10 mg tablet 10 mg PO DAILY Qty: 30 11RF divalproex 500 mg tablet,delayed release (DR/EC) 500 mg PO BID Qty: 60 11RF ondansetron 4 mg tablet,disintegrating 4 mg PO DAILY Qty: 30 0RF hydroxyzine pamoate 50 mg capsule 50 mg PO DAILY simvastatin 40 mg tablet 40 mg PO DAILY pantoprazole 20 mg tablet,delayed release (DR/EC) 20 mg PO DAILY azelastine 137 mcg (0.1 %) aerosol,spray 137 mcg INTRANASAL DAILY hydrochlorothiazide 12.5 mg tablet 12.5 mg PO DAILY Referrals Follow up/Referrals: Provider,Referral, MD [Primary Care Provider] - See instructions Clinical Impressions Clinical Impression: Laryngitis Discharge ED Provider: Leann Mace General Adult HPI General Chief complaint: Upper Respiratory Infection Stated complaint: laryngitis Time Seen by Provider: 08/21/23 17:36 Mode of Arrival: EMS Source of Information: Patient Limitations: No Limitations Description of Symptoms (Recalled from ER Triage Doc. by RN): 57 yo M presents to ED with c/o laryngitis. pt reports he woke up this morning with a scratchy throat and only able to talk in a whisper. History of Present Illness HPI narrative: Patient is a 57-year-old male who is a resident of [facility] presented today with laryngitis. States he had a scratchy throat and some pain in his throat. No difficulty swallowing. Tolerating secretions well. No shortness of breath cough fevers chills rhinorrhea or any other symptoms. Related Data Home Medications Medication Instructions Recorded Confirmed azelastine 137 mcg (0.1 %) nasal 137 mcg intranasal DAILY 07/19/23 08/05/23 spray aerosol hydrochlorothiazide 12.5 mg tablet 12.5 mg PO DAILY 07/19/23 08/05/23 hydroxyzine pamoate 50 mg capsule 50 mg PO DAILY 07/19/23 08/05/23 pantoprazole 20 mg tablet,delayed 20 mg PO DAILY 07/19/23 08/05/23 release simvastatin 40 mg tablet 40 mg PO DAILY 07/19/23 08/05/23 Previous Rx's Medication Instructions Recorded divalproex 500 mg tablet,delayed 500 mg PO BID #60 tabs 02/23/23 release lisinopril 10 mg tablet 10 mg PO DAILY #30 tabs 02/23/23 quetiapine 100 mg tablet 100 mg PO HS #30 tabs 02/23/23 ondansetron 4 mg disintegrating 4 mg PO DAILY #30 tabs 07/13/23 tablet Allergies Allergy/AdvReac Type Severity Reaction Status Date / Time pollen extracts Allergy Verified 07/19/23 10:20 [facility] Disclaimer: The information contained in this section may have been updated after the patient was seen, as this information can be updated by other users. Social History Smoking Status: Never smoker alcohol intake: former current occupational status: unemployed Travel in the last 8 weeks: None ROS Obtained: Yes All systems reviewed & no additional complaints except as documented Physical Exam General General appearance: alert ENT ENT exam: Present normal oropharynx and other (Hoarse voice) Respiratory Respiratory exam: Present normal lung sounds bilaterally; Absent respiratory distress, wheezes, stridor or accessory muscle use Cardiovascular Cardiovascular exam: Present regular rate Neurological Exam Neurological exam: Present alert and oriented X3 Medical Decision Making Kenan Inquiry Pt receiving controlled substance: No Vital Signs: 08/21/23 16:57 Temperature 97.9 F Temperature Source Oral Pulse Rate [Left Radial] 88 Respiratory Rate 15 Blood Pressure [Right Arm] 119/62 Blood Pressure Mean [Right Arm] 81 02 Sat by Pulse Oximetry 97 Oxygen Delivery Method Room Air Lab Data Lab Results 08/21/23 18:05: Group A Strep Rapid Negative Orders (Tests/Meds): ED MEDICATIONS Discontinued Medications Generic Name Dose Route Start Last Admin
[2023-08-21 18:24] LABS: Strep Scrn Group A (Rapid) Negative (Negative)
--- NOTE | 2023-08-21 18:36 | PC.NURSE ---
call made to [facility] for a ride back to facility for pt. no answer.
--- NOTE | 2023-08-21 18:41 | PC.NURSE ---
call made to [facility]. staff reports that they will will call clerk for [facility] and attempt to get pt a ride back to facility.
[2023-08-21 19:05] VITALS: BP 119/62; PULSE 88; RESP 15; TEMP 36.6; O2SAT 97
--- NOTE | 2023-08-26 15:09 | PC.NURSE ---
attempted to call shai to [facility] on pt throat culture, no answer at this time, no voicemail to leave message. aware
--- NOTE | 2023-08-30 18:32 | PC.NURSE ---
throat results show strep gp a spoke with Dawn at [facility] who states pt is sx free at this time and doing well. aware
== END 2023-08-21 19:06 | disposition home or self-care (01) ==
PROVIDERS: Emergency Provider Student in an Organized Health Care Education/Training Program
DX: J04.0 Acute laryngitis (principal)
CPT/HCPCS: 87430; 99283

== ENCOUNTER 2023-11-10 02:31 | Emergency (ER) | payer MEDICARE, OTHER, SELFPAY ==
--- NOTE | 2023-11-10 02:42 | ED_ITS ---
Discharge Plan Disposition Patient Disposition: Home, Self-Care Prescriptions Prescriptions: No Action quetiapine 100 mg tablet 100 mg PO HS Qty: 30 11RF lisinopril 10 mg tablet 10 mg PO DAILY Qty: 30 11RF divalproex 500 mg tablet,delayed release (DR/EC) 500 mg PO BID Qty: 60 11RF ondansetron 4 mg tablet,disintegrating 4 mg PO DAILY Qty: 30 0RF hydroxyzine pamoate 50 mg capsule 50 mg PO DAILY simvastatin 40 mg tablet 40 mg PO DAILY pantoprazole 20 mg tablet,delayed release (DR/EC) 20 mg PO DAILY azelastine 137 mcg (0.1 %) aerosol,spray 137 mcg INTRANASAL DAILY hydrochlorothiazide 12.5 mg tablet 12.5 mg PO DAILY Clinical Impressions Clinical Impression: Fall Qualifiers: Encounter type: initial encounter Qualified Code(s): W19.XXXA - Unspecified fall, initial encounter Discharge ED Provider: Pritesh Reese General Adult HPI General Chief complaint: Fall Stated complaint: Fall from standing position Time Seen by Provider: 11/10/23 02:31 History of Present Illness HPI narrative: 57-year-old male, resident at [facility], medical history as reported below pr esents with fall. He reports that he fell when he was on his way to the bathroom. He was having difficulty getting up and he pooped on himself. He then called 911. He reports that his back was feeling little numb where he was lying but he reports no pain, weakness, headache neck pain extremity pain or any other symptoms. Related Data Home Medications Medication Instructions Recorded Confirmed azelastine 137 mcg (0.1 %) nasal 137 mcg intranasal DAILY 07/19/23 08/05/23 spray aerosol hydrochlorothiazide 12.5 mg tablet 12.5 mg PO DAILY 07/19/23 08/05/23 hydroxyzine pamoate 50 mg capsule 50 mg PO DAILY 07/19/23 08/05/23 pantoprazole 20 mg tablet,delayed 20 mg PO DAILY 07/19/23 08/05/23 release simvastatin 40 mg tablet 40 mg PO DAILY 07/19/23 08/05/23 Previous Rx's Medication Instructions Recorded divalproex 500 mg tablet,delayed 500 mg PO BID #60 tabs 02/23/23 release lisinopril 10 mg tablet 10 mg PO DAILY #30 tabs 02/23/23 quetiapine 100 mg tablet 100 mg PO HS #30 tabs 02/23/23 ondansetron 4 mg disintegrating 4 mg PO DAILY #30 tabs 07/13/23 tablet Allergies Allergy/AdvReac Type Severity Reaction Status Date / Time pollen extracts Allergy Verified 07/19/23 10:20 [facility] Disclaimer: The information contained in this section may have been updated after the patient was seen, as this information can be updated by other users. Social History Smoking Status: Unknown if ever smoked alcohol intake: former current occupational status: unemployed Travel in the last 8 weeks: None ROS Obtained: Yes All systems reviewed & no additional complaints except as documented Physical Exam General General appearance: alert and in no apparent distress Head Head exam: atraumatic and normocephalic Eye Eye exam: Present normal appearance, PERRL and EOMI ENT ENT exam: Present normal oropharynx and normal external ear exam Neck Neck exam: Present normal inspection and full ROM; Absent tenderness Chest Chest inspection: Present normal inspection and symmetric chest wall rise; Absent tenderness Respiratory Respiratory exam: Present normal lung sounds bilaterally; Absent respiratory distress Cardiovascular Cardiovascular exam: Present regular rate and normal rhythm Abdominal Exam Abdominal exam: Present soft; Absent distention, tenderness or guarding Comment: Umbilical hernia noted, easily reducible Extremities Exam Extremities exam: Present normal inspection; Absent edema or joint swelling Back Exam Back exam: Present normal inspection; Absent tenderness Neurological Exam Neurological exam: Present alert, oriented X3 and normal gait; Absent motor sensory deficit Psychiatric Psychiatric exam: Present normal affect and normal mood Skin Skin exam: Present warm, dry and normal color Lymphatic Lymphatic Findings: no adenopathy Medical Decision Making Medical Records Medical records reviewed: Yes I reviewed the patient's medical records. Kenan Inquiry Pt receiving controlled substance: No Kenan was queried for this patient: No Vital Signs: 11/10/23 02:46 Temperature 98.2 F Temperature Source Oral Pulse Rate [Right Brachial] 81 Respiratory Rate 17 Blood Pressure [Right Arm] 145/80 H Blood Pressure Mean [Right Arm] 101 Blood Pressure Source [Right Arm] Automatic Cuff Blood Pressure Position [Right Arm] Sitting 02 Sat by Pulse Oximetry 100 Oxygen Delivery Method Room Air Lab Data Lab results reviewed: Yes I reviewed the patient's lab results. Medical Decision Narrative: 57-year-old male with psychiatric comorbidities presents from [facility] after a fall from standing, he pooped on himself and was unable to get up and so he called 911.. History was obtained interactive discussion with patient, EMS. On arrival, patient is [afebrile, hemodynamically stable, satting appropriately, alert, oriented x4, GCS 15], moving all extremities spontaneously. Full physical exam performed and significant for no evidence of trauma, no focal neurologic deficits, patient covered in feces Differential includes but is not limited to intracranial trauma intrathoracic trauma intra-abdominal trauma spine trauma extremity trauma. Given history and exam, no concern for significant trauma at this time. Patient was cleaned up. He was able to ambulate without difficulty and without pain. He was discharged in stable condition. Procedures Risk/Benefits of Procedure(s) Were Explained: Yes Critical Care Critical Care Time Critical Care Time: No
[2023-11-10 02:46] VITALS: BP 145/80; PULSE 81; RESP 17; TEMP 36.8; O2SAT 100; BMI 36.9
--- NOTE | 2023-11-10 02:55 | PC.NURSE ---
Provided patient with complete bed bath, clean gowns, patient requested shave at this time. Patient alert and oriented at this time, denies injury or pain.
--- NOTE | 2023-11-10 03:02 | PC.NURSE ---
Patient ambulated with staff approximately 60 ft with only standby assist. Slow, but steady gait. Patient reports no difficulties at this time.
--- NOTE | 2023-11-10 03:08 | PC.NURSE ---
Spoke to Dawn vazquez [facility] to update that patient was up for discharge at this time. Was notified at this time that they would not have anyone available to pick up attendant patient until 0730am.
--- NOTE | 2023-11-10 03:10 | PC.NURSE ---
Attempted to call Jaun [employer] hr manager, no answer at this time, no voicemail.
--- NOTE | 2023-11-10 04:12 | PC.NURSE ---
Assisted patient to restroom, standby assist.
--- NOTE | 2023-11-10 06:22 | PC.NURSE ---
Patient resting quietly with eyes closed. Respirations even and unlabored. No acute distress noted.
[2023-11-10 07:09] VITALS: BP 145/80; PULSE 81; RESP 17; TEMP 36.8; O2SAT 100
== END 2023-11-10 07:12 | disposition home or self-care (01) ==
LOC: ER 03:15
PROVIDERS: Emergency Provider Emergency Medicine
DX: R20.0 Anesthesia of skin (principal); W19.XXXA Unspecified fall, initial encounter
CPT/HCPCS: 99282

== ENCOUNTER 2023-11-20 13:22 | Emergency (ER) | payer MEDICARE, OTHER, SELFPAY ==
[2023-11-20 13:22] VITALS: BP 135/73; PULSE 79; RESP 18; TEMP 36.4; O2SAT 96; BMI 38.7
--- NOTE | 2023-11-20 13:27 | ECG_ITS ---
APPROVED REPORT Exam: Resting ECG HR:76 bpm ECG Measurements Heart Rate 76 AXES FL 162 P 44 QRSd 86 QRS 73 QT 362 T 60 QTc 392 Conclusion SINUS RHYTHM NORMAL ECG Electronically signed by : KLAUDIA SANCHEZ, 11/21/2023 00:30:50
[2023-11-20 13:29] VITALS: BMI 38.7
--- NOTE | 2023-11-20 13:29 | XR_ITS ---
FINAL REPORT CLINICAL HISTORY: CHEST PAIN COMPARISON: 01/31/2023 FINDINGS: SINGLE-VIEW CHEST The heart size is normal. The mediastinum is normal. The lungs are clear. There is no pneumothorax. IMPRESSION: No acute cardiopulmonary process. Reviewed, Interpreted and Dictated by Henok Barragan III, MD Transcribed by Daksha Julian Authenticated and [facility]
[2023-11-20 13:46] LABS: Basophils # 0.1 K/mm3 (0-0.2); Basophils % 0.9 % (0.1-2.0); Eosinophils # 0.2 K/mm3 (0.0-0.4); Eosinophils % 4.2 % (0.1-12.0); Lymphocytes # 1.5 K/mm3 (0.7-4.5); Lymphocytes % 26.6 % (10-50); Mean Corpuscular HGB Conc 32.5 g/dL (31.8-35.4); Mean Corpuscular Hemoglobin 29.6 pg (27.0-31.2); Mean Corpuscular Volume 91.3 fl (80-94); Mean Platelet Volume 7.5 fl (7.4-10.4); Monocytes # 0.7 K/mm3 (0.1-1.0); Neutrophils # 3.1 K/mm3 (1.8-7.8); Neutrophils % 55.4 % (37.0-80.0); Platelet Count 255 K/mm3 (142-424); Red Blood Count 4.39 M/mm3 (4.60-6.20); Red Cell Distribution Width 14.3 % (11.5-17.5); White Blood Count 5.7 K/mm3 (4.8-10.8)
[2023-11-20 13:49] LABS: Anion Gap 13.9 mEq/L (5-15); Blood Urea Nitrogen 11 mg/dl (9-20); Calcium 8.9 mg/dl (8.4-10.2); Carbon Dioxide 26 mmol/L (22.0-30.0); Chloride 101 mmol/L (98-107); Creatinine Clearance Estimated 143 mL/min (50-200); Estimated Glomerular Filt Rate 88 ml/min (>60); GFR (African American) 106 ML/MIN (>60); Glucose 121 mg/dl (74-100); Potassium 3.9 mmoL/L (3.5-5.1); Sodium 137 mmol/L (136-145)
[2023-11-20 14:02] LABS: Troponin I < 0.01 ng/ml (0.00-0.034)
--- NOTE | 2023-11-20 14:19 | PC.NURSE ---
PT EATING AND DRINKING WITH NO PROBLEMS
--- NOTE | 2023-11-20 14:25 | HMH.EDCP ---
Discharge Plan Disposition Patient Disposition: Home, Self-Care Condition: Good Prescriptions Prescriptions: No Action quetiapine 100 mg tablet 100 mg PO HS Qty: 30 11RF lisinopril 10 mg tablet 10 mg PO DAILY Qty: 30 11RF divalproex 500 mg tablet,delayed release (DR/EC) 500 mg PO BID Qty: 60 11RF ondansetron 4 mg tablet,disintegrating 4 mg PO DAILY Qty: 30 0RF hydroxyzine pamoate 50 mg capsule 50 mg PO DAILY simvastatin 40 mg tablet 40 mg PO DAILY pantoprazole 20 mg tablet,delayed release (DR/EC) 20 mg PO DAILY azelastine 137 mcg (0.1 %) aerosol,spray 137 mcg INTRANASAL DAILY hydrochlorothiazide 12.5 mg tablet 12.5 mg PO DAILY Referrals Follow up/Referrals: Bernard Castrejon APRN [Primary Care Provider] - See instructions Activity Restrictions/Add. Instructions Additional Instructions/Restrictions: Please establish care with a PCP for follow-up as an outpatient. Return to the ER as needed for any worsening or change in your symptoms or condition. Clinical Impressions Clinical Impression: Atypical chest pain Instructions Patient Instructions: DI for Atypical Chest Pain Discharge ED Provider: Marisol Crowell HPI <ADRYAN Jean - Last Filed: 11/20/23 15:34> General Chief Complaint: Chest Pain Stated Complaint: Chest Pain Time Seen by Provider: 11/20/23 14:07 Mode of Arrival: EMS Source of Information: Patient Limitations: No Limitations Description of Symptoms (Recalled from ER Triage Doc. by RN): Patient was brought in by [facility] from [facility] with c/o of chest pain. Patient reports he had an intense pain on the left side of his chest right before lunch. Patient rated his pain 7/10. Patient reports at this current time, the pain has subsided. History of Present Illness HPI narrative: Patient presents to the emergency department chest pain that described as a twinge that he rated as a 7 out of 10 however at the time of my exam patient rates his pain is 0 out of 10. Patient is an extremely difficult historian and is unable to provide a significant past medical history of himself personally but states heart failure runs in my family liver disease runs in my family but when directly questioned about whether he has them himself patient cannot/will not answer. Currently he denies chest pain fever chills hemoptysis hematochezia melena nausea vomiting diarrhea. Related Data Home Medications Medication Instructions Recorded Confirmed azelastine 137 mcg (0.1 %) nasal 137 mcg intranasal DAILY 07/19/23 08/05/23 spray aerosol hydrochlorothiazide 12.5 mg tablet 12.5 mg PO DAILY 07/19/23 08/05/23 hydroxyzine pamoate 50 mg capsule 50 mg PO DAILY 07/19/23 08/05/23 pantoprazole 20 mg tablet,delayed 20 mg PO DAILY 07/19/23 08/05/23 release simvastatin 40 mg tablet 40 mg PO DAILY 07/19/23 08/05/23 Previous Rx's Medication Instructions Recorded divalproex 500 mg tablet,delayed 500 mg PO BID #60 tabs 02/23/23 release lisinopril 10 mg tablet 10 mg PO DAILY #30 tabs 02/23/23 quetiapine 100 mg tablet 100 mg PO HS #30 tabs 02/23/23 ondansetron 4 mg disintegrating 4 mg PO DAILY #30 tabs 07/13/23 tablet Allergies Allergy/AdvReac Type Severity Reaction Status Date / Time pollen extracts Allergy Verified 07/19/23 10:20 [facility] <ADRYAN Jean - Last Filed: 11/20/23 15:34> [facility] Disclaimer: The information contained in this section may have been updated after the patient was seen, as this information can be updated by other users. Social History Smoking Status: Never smoker alcohol intake: former current occupational status: unemployed Travel in the last 8 weeks: None <ADRYAN Jean - Last Filed: 11/20/23 15:34> ROS Obtained: Yes Systems reviewed as appropriate & no additional complaints except as documented Physical Exam <ADRYAN Jean - Last Filed: 11/20/23 15:34> General General appearance: alert and in no apparent distress Head Head exam: atraumatic and normal inspection Eye Eye exam: Present normal appearance, PERRL and EOMI ENT ENT exam: Present normal exam, normal oropharynx and mucous membranes moist Neck Neck exam: Present normal inspection and full ROM Chest Chest inspection: Present normal inspection and symmetric chest wall rise; Absent tenderness Respiratory Respiratory exam: Present normal lung sounds bilaterally; Absent respiratory distress, wheezes or accessory muscle use Cardiovascular Cardiovascular exam: Present regular rate, normal rhythm, normal heart sounds, +S1 and +S2 Abdominal Exam Abdominal exam: Present soft (Obese) and normal bowel sounds; Absent tenderness, guarding or rebound Extremities Exam Extremities exam: Present normal inspection and full ROM Back Exam Back exam: Present normal inspection and full ROM Neurological Exam Neurological exam: Present alert and oriented X3 Psychiatric Psychiatric exam: Present flat affect and other (Patient has a flat affect and is slow to respond and is a very difficult historian but is awake and interactive) Skin Skin exam: Present warm, dry and normal color HEART Score <ADRYAN Jean - Last Filed: 11/20/23 15:34> HEART Score HEART Score assessment performed?: Yes History (anamnesis): Slightly suspicious ECG: Normal Age: 45-65 years Risk factors: No known risk factors Troponin: </= normal limit HEART Score: 1 <Marisol Crowell DO - Last Filed: 11/20/23 15:43> HEART Score HEART Score: 1 Critical Care <ADRYAN Jean - Last Filed: 11/20/23 15:34> Critical Care Time Critical Care Time: No Medical Decision Making <ADRYAN Jean Last Filed: 11/20/23 15:34> Medical Records Medical records reviewed: Yes I reviewed the patient's medical records. Kenan Inquiry Pt receiving controlled substance: No Vital Signs Vital Signs: 11/20/23 13:22 11/20/23 14:30 11/20/23 15:00 Temperature 97.5 F L Temperature Source Oral Pulse Rate 75 71 Pulse Rate [Right Brachial] 79 Respiratory Rate 18 Blood Pressure 121/87 138/94 H Blood Pressure [Right Arm] 135/73 Blood Pressure Mean 98 Blood Pressure Mean [Right Arm] 93 Blood Pressure Source [Right Arm] Automatic Cuff Blood Pressure Position [Right Arm] Sitting 02 Sat by Pulse Oximetry 96 93 L 94 L Oxygen Delivery Method Room Air Room Air Room Air Lab Data Lab results reviewed: Yes I reviewed the patient's lab results. Labs: Lab Results 11/20/23 13:20: WBC 5.7, RBC 4.39 L, Hgb 13.0 L, Hct 40.0 L, MCV 91.3, MCH 29.6, MCHC 32.5, RDW 14.3, Plt Count 255, MPV 7.5, Neut % (Auto) 55.4, Lymph % (Auto) 26.6, [place] % (Auto) 13.0 H, Eos % (Auto) 4.2, Baso % (Auto) 0.9, Neut # (Auto) 3.1, Lymph # (Auto) 1.5, [place] # (Auto) 0.7, Eos # (Auto) 0.2, Baso # (Auto) 0.1, D-Dimer 0.31, Sodium 137, Potassium 3.9, Chloride 101, Carbon Dioxide 26, Anion Gap 13.9, BUN 11, Creatinine 0.90, Estimated Creat Clear 143, Estimated GFR 88, Est GFR ( Amer) 106, Glucose 121 H, Calcium 8.9, Troponin I < 0.01 11/20/23 13:20 11/20/23 13:20 Response Orders (Tests/Meds): ED MEDICATIONS Generic Name Dose Route Start Last Admin Trade Name Freq PRN Reason Stop Dose Admin Sodium Chloride 10 ml 11/20/23 13:29 Sodium Chloride 0.9% 10ml Flush Syringe IV 12/20/23 13:28 NEEDED PRN Maintain IV Site ORDERS Category Date Time Status XR chest portable Stat Exams 11/20/23 13:29 Completed Basic Metabolic Panel Stat Lab 11/20/23 13:20 Completed Complete Blood Count Auto Diff Stat Lab 11/20/23 13:20 Completed D-Dimer Stat Lab 11/20/23 13:20 Completed Rapid PCR Covid and Flu A/B Stat Lab 11/20/23 14:26 Received Troponin I Q3H Lab 11/20/23 16:30 Ordered Troponin I Q3H Lab 11/20/23 19:30 Ordered Troponin I Stat Lab 11/20/23 13:20 Completed MDM Narrative Medical Decision Narrative: In summary patient is a 57-year-old male who presents to the emergency department for evaluation of chest pain .. Patient is hemodynamically stable and afebrile with an O2 sat of 96% on room air. Physical exam is unremarkable and nonfocal with no acute findings including normal breath sounds normal heart sounds normal heart rate normal sinus rhythm noted on the bedside monitor no constitutional symptoms including no fever chills hemoptysis hematochezia melena choking dysphagia. Differential diagnosis includes musculoskeletal spasm, ACS, PE, respiratory infection, COPD etc. Initial workup will be conducted with hematologic labs plain film chest x-ray twelve-lead EKG. initial workup reviewed by me shows that his hematologic labs are nonactionable including an undetectable troponin, normal chest x-ray and a twelve-lead EKG that shows no evidence of ACS. Upon repeat evaluation patient has had no recurrence of his chest pain since arrival to the ER and has tolerated p.o. intake. Given this patient is appropriate for discharge home with recommendation to establish care with a PCP and return to the ER if he has return of his symptoms or worsening of his condition. Patient verbalized understanding and agreement. <Marisol Crowell, DO - Last Filed: 11/20/23 15:43> Vital Signs Vital Signs: 11/20/23 13:22 11/20/23 14:30 11/20/23 15:00 Temperature 97.5 F L Temperature Source Oral Pulse Rate 75 71 Pulse Rate [Right Brachial] 79 Respiratory Rate 18 Blood Pressure 121/87 138/94 H Blood Pressure [Right Arm] 135/73 Blood Pressure Mean 98 Blood Pressure Mean [Right Arm] 93 Blood Pressure Source [Right Arm] Automatic Cuff Blood Pressure Position [Right Arm] Sitting 02 Sat by Pulse Oximetry 96 93 L 94 L Oxygen Delivery Method Room Air Room Air Room Air Lab Data Labs: Lab Results 11/20/23 13:20: WBC 5.7, RBC 4.39 L, Hgb 13.0 L, Hct 40.0 L, MCV 91.3, MCH 29.6, MCHC 32.5, RDW 14.3, Plt Count 255, MPV 7.5, Neut % (Auto) 55.4, Lymph % (Auto) 26.6, [place] % (Auto) 13.0 H, Eos % (Auto) 4.2, Baso % (Auto) 0.9, Neut # (Auto) 3.1, Lymph # (Auto) 1.5, [place] # (Auto) 0.7, Eos # (Auto) 0.2, Baso # (Auto) 0.1, D-Dimer 0.31, Sodium 137, Potassium 3.9, Chloride 101, Carbon Dioxide 26, Anion Gap 13.9, BUN 11, Creatinine 0.90, Estimated Creat Clear 143, Estimated GFR 88, Est GFR ( Amer) 106, Glucose 121 H, Calcium 8.9, Troponin I < 0.01 Response Orders (Tests/Meds): ED MEDICATIONS Generic Name Dose Route Start Last Admin Trade Name Freq PRN Reason Stop Dose Admin Sodium Chloride 10 ml 11/20/23 13:29 Sodium Chloride 0.9% 10ml Flush Syringe IV 12/20/23 13:28 NEEDED PRN Maintain IV Site ORDERS Category Date Time Status XR chest portable Stat Exams 11/20/23 13:29 Completed Basic Metabolic Panel Stat Lab 11/20/23 13:20 Completed Complete Blood Count Auto Diff Stat Lab 11/20/23 13:20 Completed D-Dimer Stat Lab 11/20/23 13:20 Completed Rapid PCR Covid and Flu A/B Stat Lab 11/20/23 14:26 Received Troponin I Q3H Lab 11/20/23 16:30 Ordered Troponin I Q3H Lab 11/20/23 19:30 Ordered Troponin I Stat Lab 11/20/23 13:20 Completed MDM Narrative Medical Decision Narrative: In summary patient is a 57-year-old male who presents to the emergency department for evaluation of chest pain .. Patient is hemodynamically stable and afebrile with an O2 sat of 96% on room air. Physical exam is unremarkable and nonfocal with no acute findings including normal breath sounds normal heart sounds normal heart rate normal sinus rhythm noted on the bedside monitor no constitutional symptoms including no fever chills hemoptysis hematochezia melena choking dysphagia. Differential diagnosis includes musculoskeletal spasm, ACS, PE, respiratory infection, COPD etc. Initial workup will be conducted with hematologic labs plain film chest x-ray twelve-lead EKG. initial workup reviewed by me shows that his hematologic labs are nonactionable including an undetectable troponin, normal chest x-ray and a twelve-lead EKG that shows no evidence of ACS. Upon repeat evaluation patient has had no recurrence of his chest pain since arrival to the ER and has tolerated p.o. intake. Given this patient is appropriate for discharge home with recommendation to establish care with a PCP and return to the ER if he has return of his symptoms or worsening of his condition. Patient verbalized understanding and agreement. I was consulted by the FRANNIE, and we discussed the complexity of the problems being addressed. I approved the treatment and management plan for this patient's care in the emergency department, thus performing a substantive portion of the medical decision making. Marisol Crowell DO
[2023-11-20 14:30] VITALS: BP 121/87; PULSE 75; O2SAT 93
[2023-11-20 14:39] LABS: Influenza A, PCR Not Detected (NotDetected); Influenza B, PCR Not Detected (NotDetected)
[2023-11-20 15:00] VITALS: BP 138/94; PULSE 71; O2SAT 94
[2023-11-20 15:00] LABS: D-Dimer 0.31 ug/mL (0.0-0.5)
--- NOTE | 2023-11-20 15:27 | PC.NURSE ---
Spoke with Ingris at [facility] about ride for pt. She advised someone would come berry picker pt.
[2023-11-20 15:55] VITALS: BP 138/94; PULSE 71; RESP 18; TEMP 36.7; O2SAT 94
[2023-11-20 16:03] LABS: Coronavirus 19, PCR Detected (NotDetected)
== END 2023-11-20 15:56 | disposition home or self-care (01) ==
PROVIDERS: Emergency Medicine; Physician Assistant; Emergency Provider Emergency Medicine; PCP Nurse Practitioner Acute Care
DX: U07.1 COVID-19 (principal); R07.9 Chest pain, unspecified
CPT/HCPCS: 71045; 80048; 84484; 85025; 85378; 87636; 93005; 99284

== ENCOUNTER 2023-12-09 08:32 | Emergency (ER) | payer MEDICARE, OTHER, SELFPAY ==
[2023-12-09 08:33] VITALS: BP 110/52; PULSE 113; RESP 18; TEMP 36.7; O2SAT 93; BMI 36.5
--- NOTE | 2023-12-09 08:47 | PC.NURSE ---
dr cervantes at bedside
--- NOTE | 2023-12-09 08:54 | HMH.EDGENADL ---
Discharge Plan Disposition Patient Disposition: Home, Self-Care Prescriptions Prescriptions: No Action quetiapine 100 mg tablet 100 mg PO HS Qty: 30 11RF lisinopril 10 mg tablet 10 mg PO DAILY Qty: 30 11RF divalproex 500 mg tablet,delayed release (DR/EC) 500 mg PO BID Qty: 60 11RF ondansetron 4 mg tablet,disintegrating 4 mg PO DAILY Qty: 30 0RF hydroxyzine pamoate 50 mg capsule 50 mg PO DAILY simvastatin 40 mg tablet 40 mg PO DAILY pantoprazole 20 mg tablet,delayed release (DR/EC) 20 mg PO DAILY azelastine 137 mcg (0.1 %) aerosol,spray 137 mcg INTRANASAL DAILY hydrochlorothiazide 12.5 mg tablet 12.5 mg PO DAILY Referrals Follow up/Referrals: Provider,Referral, MD [Primary Care Provider] - See instructions Activity Restrictions/Add. Instructions Additional Instructions/Restrictions: No emergent medical condition identified today. Based on history and physical this seems to be a chronic deconditioning. Mr. Vaughan was able to walk without difficulty in the emergency department. No indication for admission or further evaluation and management from an emergency standpoint. He does not have a desire to be in a custodial right now. Please continue to discuss with him disposition options from [facility] if his physical deconditioning worsens to the point where you cannot manage him at that facility. Clinical Impressions Clinical Impression: Physical deconditioning Discharge ED Provider: Leann Mace General Adult HPI General Chief complaint: Fall Stated complaint: fall Time Seen by Provider: 12/09/23 08:46 Mode of Arrival: EMS Source of Information: Patient Limitations: No Limitations Description of Symptoms (Recalled from ER Triage Doc. by RN): Patient reports frequent falls and weakness. Reports falling twice in the past 24 hours. No injuries from recent fall. History of Present Illness HPI narrative: Patient is a 58-year-old male presenting today with chronic worsening of generalized deconditioning and weakness that he states has been going on for years and had multiple falls today. No injuries. Apparently according to [facility] it was the patient that wanted to come to the emergency department and he told EMS that he just did not like [facility] and wanted to get out of there. He specifically states that he wants to live with the sister but she is not his guardian. The state has guardianship over him. He denies any acute different changes in symptoms no significant pain no fevers chills nausea vomiting diarrhea etc. He states that he does not want to go to a custodial. Related Data Home Medications Medication Instructions Recorded Confirmed azelastine 137 mcg (0.1 %) nasal 137 mcg intranasal DAILY 07/19/23 08/05/23 spray aerosol hydrochlorothiazide 12.5 mg tablet 12.5 mg PO DAILY 07/19/23 08/05/23 hydroxyzine pamoate 50 mg capsule 50 mg PO DAILY 07/19/23 08/05/23 pantoprazole 20 mg tablet,delayed 20 mg PO DAILY 07/19/23 08/05/23 release simvastatin 40 mg tablet 40 mg PO DAILY 07/19/23 08/05/23 Previous Rx's Medication Instructions Recorded divalproex 500 mg tablet,delayed 500 mg PO BID #60 tabs 02/23/23 release lisinopril 10 mg tablet 10 mg PO DAILY #30 tabs 02/23/23 quetiapine 100 mg tablet 100 mg PO HS #30 tabs 02/23/23 ondansetron 4 mg disintegrating 4 mg PO DAILY #30 tabs 07/13/23 tablet Allergies Allergy/AdvReac Type Severity Reaction Status Date / Time pollen extracts Allergy Verified 07/19/23 10:20 [facility] Disclaimer: The information contained in this section may have been updated after the patient was seen, as this information can be updated by other users. Social History Smoking Status: Unknown if ever smoked alcohol intake: former current occupational status: unemployed Travel in the last 8 weeks: None ROS Obtained: Yes All systems reviewed & no additional complaints except as documented Physical Exam General General appearance: alert and in no apparent distress Respiratory Respiratory exam: Present normal lung sounds bilaterally Cardiovascular Cardiovascular exam: Present regular rate and normal rhythm Extremities Exam Extremities exam: Present other (No soft tissue deformities or tenderness in the lower extremities he has normal motor and sensory function with dorsiflexion plantarflexion the great toe and ankle in flexion extension and hip and knee strength appears normal throughout) Neurological Exam Neurological exam: Present alert and oriented X3 Medical Decision Making Kenan Inquiry Pt receiving controlled substance: No Vital Signs: 12/09/23 08:33 Temperature 98.0 F Temperature Source Oral Pulse Rate [Radial] 113 H Respiratory Rate 18 Blood Pressure [Right Arm] 110/52 L Blood Pressure Mean [Right Arm] 71 Blood Pressure Source [Right Arm] Automatic Cuff Blood Pressure Position [Right Arm] Sitting 02 Sat by Pulse Oximetry 93 L Oxygen Delivery Method Room Air Medical Decision Narrative: 58-year-old with above history with chronic deconditioning over several years he states. He is fallen today multiple times. He is at [facility] do not believe they have the ability to care for him if he is unable to ambulate. Will try to get him to ambulate the bedside. His strength appears normal there does not seem to be an acute emergent component of this and this is primarily a social disposition at this point. He is a marmolejo of the [facility] and his sister does not have decision-making authority in this particular situation. Therefore must the patient would like to be admitted for custodial placement he will need to go back to [facility] and they can work this out further there. Reassessment 9:10 AM patient able to ambulate without difficulty. He has been given a meal. He spoke with his sister they will continue to have communication with [facility]. No other emergent medical condition identified or needing evaluation or management inpatient or emergently. He was discharged in stable condition. Critical Care Critical Care Time Critical Care Time: No
[2023-12-09 09:00] VITALS: BP 109/56; PULSE 109; RESP 20; O2SAT 92
--- NOTE | 2023-12-09 09:04 | PC.NURSE ---
pt ambulated approx 100 ft in [place] without assistance
--- NOTE | 2023-12-09 09:05 | PC.NURSE ---
pt given phone to call his sister
--- NOTE | 2023-12-09 09:11 | PC.NURSE ---
[facility] notified of patient's discharge.
[2023-12-09 09:47] VITALS: BP 109/56; PULSE 109; RESP 20; TEMP 36.7; O2SAT 92
== END 2023-12-09 10:31 | disposition home or self-care (01) ==
PROVIDERS: Emergency Provider Student in an Organized Health Care Education/Training Program
DX: R53.81 Other malaise (principal); F41.9 Anxiety disorder, unspecified; W19.XXXA Unspecified fall, initial encounter; Z65.3 Problems related to other legal circumstances
CPT/HCPCS: 99282

== ENCOUNTER 2024-03-05 17:18 | Emergency (ER) | payer MEDICARE, OTHER, SELFPAY ==
[2024-03-05 17:23] VITALS: BP 129/69; PULSE 88; RESP 20; TEMP 36.9; O2SAT 96; BMI 33.7
--- NOTE | 2024-03-05 17:34 | ED_ITS ---
Discharge Plan Disposition Patient Disposition: Home, Self-Care Prescriptions Prescriptions: No Action quetiapine 100 mg tablet 100 mg PO HS Qty: 30 11RF lisinopril 10 mg tablet 10 mg PO DAILY Qty: 30 11RF divalproex 500 mg tablet,delayed release (DR/EC) 500 mg PO BID Qty: 60 11RF ondansetron 4 mg tablet,disintegrating 4 mg PO DAILY Qty: 30 0RF hydroxyzine pamoate 50 mg capsule 50 mg PO DAILY simvastatin 40 mg tablet 40 mg PO DAILY pantoprazole 20 mg tablet,delayed release (DR/EC) 20 mg PO DAILY azelastine 137 mcg (0.1 %) aerosol,spray 137 mcg INTRANASAL DAILY hydrochlorothiazide 12.5 mg tablet 12.5 mg PO DAILY Activity Restrictions/Add. Instructions Additional Instructions/Restrictions: No emergent medical condition identified today. Clinical Impressions Clinical Impression: Encounter for medical screening examination Discharge ED Provider: Leann Mace General Adult HPI General Chief complaint: Weakness Stated complaint: dehydration Time Seen by Provider: 03/05/24 17:28 Mode of Arrival: EMS Source of Information: Patient Limitations: No Limitations Description of Symptoms (Recalled from ER Triage Doc. by RN): Pt entered ER via EMS with complaints of being overheated. Pt states having an arguement with another resident at [facility] and decided to take a walk and after approx 30 mins of walking became hot and weak. Pt denies any LOC History of Present Illness HPI narrative: Patient is a 58-year-old male who was brought in today by EMS. He states that he was very frustrated with [facility] for multiple different reasons and decided to leave there and go for a walk. He states that it was very hot outside and he was so hot that he had to sit down. When he sat down he was able to call his sister who then called the police police subsequently called EMS who brought him to the emergency department. Patient states that he had a heatstroke. He denies any changes in mental status any neurologic complaints is back to his baseline now and denies any somatic complaints at all. States he is very excited about going back to [facility] to eat his chair covered pretzels his spiced Coke and to watch an episode of dark shadows on his [employer] tv. Related Data Home Medications Medication Instructions Recorded Confirmed azelastine 137 mcg (0.1 %) nasal 137 mcg intranasal DAILY 11/02/23 11/19/23 spray aerosol hydrochlorothiazide 12.5 mg tablet 12.5 mg PO DAILY 07/19/23 08/05/23 hydroxyzine pamoate 50 mg capsule 50 mg PO DAILY 07/19/23 08/05/23 pantoprazole 20 mg tablet,delayed 20 mg PO DAILY 07/19/23 08/05/23 release simvastatin 40 mg tablet 40 mg PO DAILY 07/19/23 08/05/23 Previous Rx's Medication Instructions Recorded divalproex 500 mg tablet,delayed 500 mg PO BID #60 tabs 02/23/23 release lisinopril 10 mg tablet 10 mg PO DAILY #30 tabs 02/23/23 quetiapine 100 mg tablet 100 mg PO HS #30 tabs 02/23/23 ondansetron 4 mg disintegrating 4 mg PO DAILY #30 tabs 07/13/23 tablet Allergies Allergy/AdvReac Type Severity Reaction Status Date / Time pollen extracts Allergy Verified 07/19/23 10:20 [facility] Disclaimer: The information contained in this section may have been updated after the pat ient was seen, as this information can be updated by other users. Social History Smoking Status: Never smoker alcohol intake: former current occupational status: unemployed Travel in the last 8 weeks: None ROS Obtained: Yes All systems reviewed & no additional complaints except as documented Physical Exam General General appearance: alert and in no apparent distress Respiratory Respiratory exam: Present normal lung sounds bilaterally Cardiovascular Cardiovascular exam: Present regular rate and normal rhythm Neurological Exam Neurological exam: Present alert, oriented X3 and CN II-XII intact; Absent motor sensory deficit Medical Decision Making Kenan Inquiry Pt receiving controlled substance: No Vital Signs: 03/05/24 17:23 Temperature 98.4 F Temperature Source Oral Pulse Rate [Left Radial] 88 Respiratory Rate 20 Blood Pressure [Right Arm] 129/69 Blood Pressure Mean [Right Arm] 89 02 Sat by Pulse Oximetry 96 Oxygen Delivery Method Room Air Medical Decision Narrative: 58-year-old male with above history and physical which is normal. No evidence of any heat related illness. No indication for any emergency testing or imaging. Medical screening exam complete no emergent medical condition identified he was discharged in a stable condition. Critical Care Critical Care Time Critical Care Time: No
[2024-03-05 17:56] VITALS: BP 129/69; PULSE 88; RESP 20; TEMP 36.9; O2SAT 96
== END 2024-03-05 17:57 | disposition home or self-care (01) ==
PROVIDERS: Emergency Provider Student in an Organized Health Care Education/Training Program; PCP Nurse Practitioner Acute Care
DX: Z00.8 Encounter for other general examination (principal)
CPT/HCPCS: 99281

== ENCOUNTER 2024-06-06 05:22 | Emergency (ER) | payer MEDICARE, OTHER, SELFPAY ==
[2024-06-06 05:22] VITALS: BP 174/104; PULSE 107; RESP 16; TEMP 37; O2SAT 96; BMI 33.7
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
[2024-06-06 05:46] VITALS: BP 139/79; PULSE 104; RESP 16; TEMP 37; O2SAT 96
== END 2024-06-06 05:48 | disposition home or self-care (01) ==
LOC: ER 05:46
PROVIDERS: Emergency Provider Emergency Medicine
DX: R10.9 Unspecified abdominal pain (principal); R19.7 Diarrhea, unspecified; R03.0 Elevated blood-pressure reading, without diagnosis of hypertension; R23.1 Pallor
CPT/HCPCS: 99283

== ENCOUNTER 2024-09-22 17:41 | Emergency (ER) | payer MEDICARE, OTHER, SELFPAY ==
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
[2024-09-22 17:51] VITALS: BP 140/67; PULSE 84; RESP 16; TEMP 36.8; O2SAT 98; BMI 33.4
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
[2024-09-22] MEDS: ACETAMINOPHEN 500MG TAB 1000 MG PO (18:35)
[2024-09-22 18:38] VITALS: BP 133/73; PULSE 77; RESP 16; TEMP 36.8
--- NOTE | 2024-09-22 18:39 | PC.NURSE ---
ATTEMPTED TO REACH [facility], NO ANSWER. CALLED [facility], SPOKE WITH DAFNE WHO WILL ATTEMPT TO REACH SOME AT [facility] TO PICK PT UP
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
[2024-09-22 19:31] LABS: Chloride 105 mmol/L (98-107)
[2024-09-22 19:32] LABS: Sodium 143 mmol/L (136-145)
[2024-09-22 19:34] LABS: Blood Urea Nitrogen 11 mg/dl (9-20); Creatinine Clearance Estimated 116 mL/min (50-200); Estimated Glomerular Filt Rate 77 ml/min (>60); GFR (African American) 94 ML/MIN (>60)
[2024-09-22 19:35] LABS: Calcium 9.3 mg/dl (8.4-10.2); Carbon Dioxide 30 mmol/L (22.0-30.0); Glucose 105 mg/dl (74-100)
[2024-09-22] MEDS: 0.9 % SODIUM CHLORIDE 50 ML VIAL IV (19:50)
[2024-09-22] MEDS: SODIUM CHLORIDE 0.9% 10ML SYR (RAD ONLY) 10 ML IV (19:50)
[2024-09-22] MEDS: IOPAMIDOL-370 (76%);100ML BOTTLE 80 ML IV (19:50)
--- NOTE | 2024-09-22 20:30 | PC.NURSE ---
I called and spoke with Christine at [facility] that the pt is ready for d/c. She states she will head up here in about 20 minutes.
== END 2024-09-22 20:59 | disposition home or self-care (01) ==
PROVIDERS: Physician Assistant; Emergency Provider Emergency Medicine; PCP Nurse Practitioner Acute Care
DX: S00.03XA Contusion of scalp, initial encounter (principal); S12.9XXA Fracture of neck, unspecified, initial encounter; R51.9 Headache, unspecified; Y04.0XXA Assault by unarmed brawl or fight, initial encounter; Y93.89 Activity, other specified; Y92.099 Unspecified place in other non-institutional residence as the place of occurrence of the external cause
CPT/HCPCS: 70450; 70498; 72125; 80048; 99285; Q9967

== ENCOUNTER 2024-09-24 01:24 | Emergency (ER) | payer MEDICARE, OTHER, SELFPAY ==
[2024-09-24 01:24] VITALS: BP 120/69; PULSE 67; RESP 18; TEMP 36.6; O2SAT 98; BMI 37.5
--- NOTE | 2024-09-24 01:30 | HMH.EDGENADL ---
Discharge Plan Disposition Patient Disposition: Home, Self-Care Prescriptions Prescriptions: No Action quetiapine 100 mg tablet 100 mg PO HS Qty: 30 11RF lisinopril 10 mg tablet 10 mg PO DAILY Qty: 30 11RF divalproex 500 mg tablet,delayed release (DR/EC) 500 mg PO BID Qty: 60 11RF ondansetron 4 mg tablet,disintegrating 4 mg PO DAILY Qty: 30 0RF hydroxyzine pamoate 50 mg capsule 50 mg PO DAILY simvastatin 40 mg tablet 40 mg PO DAILY pantoprazole 20 mg tablet,delayed release (DR/EC) 20 mg PO DAILY azelastine 137 mcg (0.1 %) aerosol,spray 137 mcg INTRANASAL DAILY hydrochlorothiazide 12.5 mg tablet 12.5 mg PO DAILY Referrals Follow up/Referrals: Provider,Referral, MD [Primary Care Provider] - See instructions Activity Restrictions/Add. Instructions Additional Instructions/Restrictions: Please follow-up with your primary care provider. Please return to the emergency department if you develop any new or worsening symptoms or become concerned for your health. Clinical Impressions Clinical Impression: Fall Print Language Print Language: Eritrean Discharge ED Provider: Pritesh Reese General Adult HPI General Chief complaint: Fall Stated complaint: fall Time Seen by Provider: 09/24/24 01:30 History of Present Illness HPI narrative: 58-year-old male, resident at [facility] presents for fall. He reports that he rolled out of bed and struck his head. He has a tiny abrasion on his head. He was seen here yesterday for fall and was evaluated with CT imaging which showed questionable cervical TP fracture which the previous provider felt was artifactual given history and exam. Related Data Home Medications ?Medication ?Instructions ?Recorded ?Confirmed azelastine 137 mcg (0.1 %) nasal 137 mcg intranasal DAILY 07/19/23 08/05/23 spray hydrochlorothiazide 12.5 mg tablet 12.5 mg PO DAILY 07/19/23 08/05/23 hydroxyzine pamoate 50 mg capsule 50 mg PO DAILY 07/19/23 08/05/23 pantoprazole 20 mg tablet,delayed 20 mg PO DAILY 07/19/23 08/05/23 release simvastatin 40 mg tablet 40 mg PO DAILY 07/19/23 08/05/23 Previous Rx's ?Medication ?Instructions ?Recorded divalproex 500 mg tablet,delayed 500 mg PO BID #60 tabs 02/23/23 release lisinopril 10 mg tablet 10 mg PO DAILY #30 tabs 02/23/23 quetiapine 100 mg tablet 100 mg PO HS #30 tabs 02/23/23 ondansetron 4 mg disintegrating 4 mg PO DAILY #30 tabs 07/13/23 tablet Allergies Allergy/AdvReac Type Severity Reaction Status Date / Time pollen extracts Allergy Other Verified 09/22/24 17:58 [facility] Disclaimer: The information contained in this section may have been updated after the patient was seen, as this information can be updated by other users. Social History Smoking Status: Never smoker alcohol intake: former current occupational status: unemployed Travel in the last 8 weeks: None Other Medical History Have you received the Flu Vaccine for this season: No Have you received the Pneumonia Vaccine: No ROS Obtained: Yes All systems reviewed & no additional complaints except as documented Physical Exam General General appearance: alert and in no apparent distress Head Head exam: normocephalic and other (Small abrasion to the top of the head) Eye Eye exam: Present normal appearance, PERRL and EOMI ENT ENT exam: Present normal oropharynx and normal external ear exam Neck Neck exam: Present normal inspection and full ROM; Absent tenderness Chest Chest inspection: Present normal inspection and symmetric chest wall rise; Absent tenderness Respiratory Respiratory exam: Present normal lung sounds bilaterally; Absent respiratory distress Cardiovascular Cardiovascular exam: Present regular rate and normal rhythm Abdominal Exam Abdominal exam: Present soft; Absent distention, tenderness or guarding Extremities Exam Extremities exam: Present normal inspection; Absent edema or joint swelling Back Exam Back exam: Present normal inspection; Absent tenderness Neurological Exam Neurological exam: Present alert and oriented X3; Absent motor sensory deficit Psychiatric Psychiatric exam: Present normal affect and normal mood Skin Skin exam: Present warm, dry and normal color Lymphatic Lymphatic Findings: no adenopathy Medical Decision Making Medical Records Medical records reviewed: Yes I reviewed the patient's medical records. Screening: Per USPSTF and CDC recommendations, given the prevalence of disease in our region, it is our hospital?s policy to screen for HIV and viral Hepatitis for all patients aged 18 and over and those with ongoing risk factors. Kenan Inquiry Pt receiving controlled substance: No Kenan was queried for this patient: No Vital Signs: 09/24/24 01:24 09/24/24 01:31 09/24/24 02:48 Temperature 97.9 F 98.0 F Temperature Source Oral Pulse Rate 66 67 Pulse Rate [Left] 67 Respiratory Rate 18 16 Blood Pressure 122/75 106/77 L Blood Pressure [Right Arm] 120/69 Blood Pressure Mean [Right Arm] 86 02 Sat by Pulse Oximetry 98 93 L Oxygen Delivery Method Room Air Room Air Lab Data Lab results reviewed: Yes I reviewed the patient's lab results. Orders (Tests/Meds): ORDERS Category Date Time Status CT cervical spine wo con Stat Cat Scan 09/24/24 01:[address] head/brain wo con Stat Cat Scan 09/24/24 01:41 Completed Medical Decision Narrative: 58-year-old male presents for fall, rolled out of bed.. History was obtained via interactive discussion with patient and chart review. On arrival, patient is [afebrile, hemodynamically stable, satting appropriately, alert, oriented x4, GCS 15], moving all extremities spontaneously. Full physical exam performed and significant for abrasion to the head, no midline C-spine tenderness, no other significant abnormalities. Patient was placed in a c-collar Differential includes but is not limited to intracranial trauma intrathoracic trauma intra-abdominal trauma spine trauma trauma trauma. Workup initiated including CT head, CT C-spine. On re-evaluation, patient [remains afebrile, HD stable.] Imaging independently interpreted by me and significant for no evidence of intracranial trauma, no evidence of cervical fracture. See radiology read for full review of final results. Full trauma workup was considered, but deemed unnecessary due to history and exam. Given patient history, exam and workup, patient's presentation most likely represents full after rolling out of bed without acute trauma injury. C-collar was cleared at bedside. Patient discharged in stable condition. Procedures Risk/Benefits of Procedure(s) Were Explained: Yes Critical Care Critical Care Time Critical Care Time: No
[2024-09-24 01:31] VITALS: BP 122/75; PULSE 66; O2SAT 93
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
[2024-09-24 02:48] VITALS: BP 106/77; PULSE 67; RESP 16; TEMP 36.7; O2SAT 98
== END 2024-09-24 02:48 | disposition home or self-care (01) ==
PROVIDERS: Emergency Provider Emergency Medicine
DX: S00.93XA Contusion of unspecified part of head, initial encounter (principal); W19.XXXA Unspecified fall, initial encounter; R51.9 Headache, unspecified
CPT/HCPCS: 70450; 72125; 99284

== ENCOUNTER 2024-12-31 04:08 | Emergency (ER) | payer MEDICARE, OTHER, SELFPAY ==
[2024-12-31] VITALS (13 sets, daily range): BP systolic 105–141; BP diastolic 60–83; PULSE 92–113; RESP 17–23; TEMP 36.7–38.6; O2SAT 92–98; BMI 36.5
--- NOTE | 2024-12-31 04:31 | PC.NURSE ---
Patient FSBS 84. aware.
--- NOTE | 2024-12-31 04:32 | PC.NURSE ---
Patient provided with warm blankets, something to drink, and a pillow. Lights dimmed per request, and call light placed within reach.
[2024-12-31] MEDS: LACTATED RINGERS 1000ML 1,000 ML 999 ML IV ×2 (05:08→06:34)
[2024-12-31 05:11] LABS: Coronavirus 19, PCR Not Detected (NotDetected); Influenza A, PCR Not Detected (NotDetected); Influenza B, PCR Not Detected (NotDetected)
[2024-12-31 05:21] LABS: Basophils % 0.3 % (0.1-2.0); Eosinophils % 0.3 % (0.1-12.0); Hematocrit 41.5 % (42.0-52.0); Hemoglobin 13.3 g/dL (14.1-18.0); Lymphocytes # 0.6 K/mm3 (0.7-4.5); Mean Corpuscular Hemoglobin 28.7 pg (27.0-31.2); Mean Corpuscular Volume 89.6 fl (80-94); Monocytes # 0.5 K/mm3 (0.1-1.0); Monocytes % 5.1 % (1.7-9.3); Neutrophils # 7.8 K/mm3 (1.8-7.8); Nucleated Red Blood Cells # 0 10^3/uL; Nucleated Red Blood Cells % 0 %; Platelet Count 173 K/mm3 (142-424); Red Blood Count 4.63 M/mm3 (4.60-6.20); Red Cell Distribution Width 13.2 % (11.5-17.5); Red Cell Distribution Width-SD 43.2 fL
--- NOTE | 2024-12-31 05:23 | ED_ITS ---
Discharge Plan Disposition Patient Disposition: Home, Self-Care Prescriptions Prescriptions: New ondansetron 4 mg tablet,disintegrating 4 mg PO Q8H PRN (Reason: nausea and vomiting) 3 Days Qty: 9 0RF amoxicillin-pot clavulanate 875-125 mg tablet 1 tab PO BID 7 Days Qty: 14 0RF No Action quetiapine 100 mg tablet 100 mg PO HS Qty: 30 11RF lisinopril 10 mg tablet 10 mg PO DAILY Qty: 30 11RF divalproex 500 mg tablet,delayed release (DR/EC) 500 mg PO BID Qty: 60 11RF ondansetron 4 mg tablet,disintegrating 4 mg PO DAILY Qty: 30 0RF hydroxyzine pamoate 50 mg capsule 50 mg PO DAILY simvastatin 40 mg tablet 40 mg PO DAILY pantoprazole 20 mg tablet,delayed release (DR/EC) 20 mg PO DAILY azelastine 137 mcg (0.1 %) aerosol,spray 137 mcg INTRANASAL DAILY hydrochlorothiazide 12.5 mg tablet 12.5 mg PO DAILY Clinical Impressions Clinical Impression: Urinary tract infection Print Language Print Language: Pashto Discharge ED Provider: Brooklynn Anaya General Adult HPI <Marjorie Orozco MD - Last Filed: 12/31/24 06:59> General Chief complaint: Recheck/Abnormal Lab/Rx Stated complaint: Shakiness Time Seen by Provider: 12/31/24 04:20 Mode of Arrival: EMS Source of Information: Patient and EMS Description of Symptoms (Recalled from ER Triage Doc. by RN): Patient to ED per [facility] with complaints of shaking. He states that he attempted to call out to [employer] employees for more blankets because he was cold, to which employees did not answer their phones nor bring him more blankets. He states that if he could just get warm he would feel much better. History of Present Illness HPI narrative: 59-year-old male who resides at [facility] and reports a history of anxiety and low blood sugar presents via EMS for complaints of being cold and shaking. He reports he called the [employer] employees multiple times for more blankets but reports many times they did not answer and they would not bring him more blankets. He reports he feels cold but denies having recent fevers, cough, congestion, sore throat, runny nose, chest pain, nausea, running, diarrhea. He states he has no other associated symptoms besides shivering but thinks he will feel better when he gets warm. He has no other complaints or concerns but would just like warm blankets and to get some rest. EMS reports temperature 99.1 with them. No medications administered in route. Related Data Home Medications ?Medication ?Instructions ?Recorded ?Confirmed azelastine 137 mcg (0.1 %) nasal 137 mcg intranasal DAILY 07/19/23 08/05/23 spray hydrochlorothiazide 12.5 mg tablet 12.5 mg PO DAILY 07/19/23 08/05/23 hydroxyzine pamoate 50 mg capsule 50 mg PO DAILY 07/19/23 08/05/23 pantoprazole 20 mg tablet,delayed 20 mg PO DAILY 07/19/23 08/05/23 release simvastatin 40 mg tablet 40 mg PO DAILY 07/19/23 08/05/23 Previous Rx's ?Medication ?Instructions ?Recorded divalproex 500 mg tablet,delayed 500 mg PO BID #60 tabs 02/23/23 release lisinopril 10 mg tablet 10 mg PO DAILY #30 tabs 02/23/23 quetiapine 100 mg tablet 100 mg PO HS #30 tabs 02/23/23 ondansetron 4 mg disintegrating 4 mg PO DAILY #30 tabs 07/13/23 tablet amoxicillin 875 mg-potassium 1 tab PO BID 7 days #14 tabs 12/31/24 clavulanate 125 mg tablet ondansetron 4 mg disintegrating 4 mg PO Q8H PRN nausea and 12/31/24 tablet vomiting 3 days #9 tabs Allergies Allergy/AdvReac Type Severity Reaction Status Date / Time pollen extracts Allergy Other Verified 09/22/24 17:58 PFSH <Marjorie Orozco MD - Last Filed: 12/31/24 06:59> PFS Disclaimer: The information contained in this section may have been updated after the patient was seen, as this information can be updated by other users. Social History Smoking Status: Never smoker alcohol intake: former current occupational status: unemployed Travel in the last 8 weeks: None Other Medical History Have you received the Flu Vaccine for this season: No Have you received the Pneumonia Vaccine: No <Marjorie Orozco MD - Last Filed: 12/31/24 06:59> ROS Obtained: Yes Systems reviewed as appropriate & no additional complaints except as documented Per HPI Physical Exam <Marjorie Orozco MD - Last Filed: 12/31/24 06:59> General General appearance: alert and in no apparent distress Head Head exam: atraumatic and normocephalic Eye Eye exam: Present PERRL and EOMI ENT ENT exam: Present mucous membranes moist Neck Neck exam: Present normal inspection and full ROM Chest Chest inspection: Present symmetric chest wall rise Respiratory Respiratory exam: Present normal lung sounds bilaterally; Absent respiratory distress, wheezes or stridor Cardiovascular Cardiovascular exam: Present normal rhythm and tachycardia Abdominal Exam Abdominal exam: Present soft; Absent distention or tenderness Extremities Exam Extremities exam: Present full ROM; Absent edema Neurological Exam Neurological exam: Present alert, oriented X3 and other (Shivering on arrival); Absent motor sensory deficit Psychiatric Psychiatric exam: Present normal affect and normal mood Skin Skin exam: Present warm and dry Medical Decision Making <Marjorie Orozco MD - Last Filed: 12/31/24 06:59> Medical Records Medical records reviewed: Yes I reviewed the patient's medical records. Screening: Per USPSTF and CDC recommendations, given the prevalence of disease in our region, it is our hospital?s policy to screen for HIV and viral Hepatitis for all patients aged 18 and over and those with ongoing risk factors. MR Comment: Review of records demonstrates patient has previously presented for social reasons including a visit in November 2023 because he wanted to get out of [employer]. He also presented in July 2023 because he was reportedly not getting fed enough at [employer], and because sleeping on his arm had caused it to go numb. He has had multiple other visits but only rarely has labs performed. Kenan Inquiry Pt receiving controlled substance: No Vital Signs: 12/31/24 04:14 12/31/24 04:23 12/31/24 04:31 Temperature 99.3 F Temperature Source Oral Pulse Rate 109 H 107 H Pulse Rate [Right] 109 H Respiratory Rate 18 Blood Pressure 135/72 129/83 Blood Pressure [Right Arm] 135/72 Blood Pressure Mean [Right Arm] 93 Blood Pressure Position [Right Arm] Supine 02 Sat by Pulse Oximetry 95 95 95 Oxygen Delivery Method Room Air 12/31/24 05:00 12/31/24 05:30 12/31/24 05:52 Temperature 101.5 F H Temperature Source Oral Pulse Rate 113 H 113 H Pulse Rate [Right] Respiratory Rate Blood Pressure 139/67 141/81 H Blood Pressure [Right Arm] Blood Pressure Mean [Right Arm] Blood Pressure Position [Right Arm] 02 Sat by Pulse Oximetry 96 96 Oxygen Delivery Method 12/31/24 06:41 12/31/24 07:07 12/31/24 07:30 Temperature 98.5 F Temperature Source Oral Pulse Rate 107 H 103 H Pulse Rate [Right] Respiratory Rate 17 Blood Pressure 134/78 115/66 Blood Pressure [Right Arm] Blood Pressure Mean [Right Arm] Blood Pressure Position [Right Arm] 02 Sat by Pulse Oximetry 92 L 94 L Oxygen Delivery Method Room Air Room Air 12/31/24 07:57 12/31/24 08:00 Temperature Temperature Source Pulse Rate 94 H 98 H Pulse Rate [Right] Respiratory Rate 18 23 Blood Pressure 105/67 L 112/60 Blood Pressure [Right Arm] Blood Pressure Mean [Right Arm] Blood Pressure Position [Right Arm] 02 Sat by Pulse Oximetry 94 L 94 L Oxygen Delivery Method Room Air Room Air Lab Data Lab Results 12/31/24 05:07: SARS-CoV-2 (PCR) Not detected, Influenza A Untype (PCR) Not detected, Influenza Type B (PCR) Not detected 12/31/24 05:13: WBC 9.0, RBC 4.63, Hgb 13.3 L, Hct 41.5 L, MCV 89.6, MCH 28.7, MCHC 32.0, RDW 13.2, Plt Count 173, MPV 8.0, Neut % (Auto) 87.0 H, Lymph % (Auto) 7.0 L, [place] % (Auto) 5.1, Eos % (Auto) 0.3, Baso % (Auto) 0.3, Neut # (Auto) 7.8, Lymph # (Auto) 0.6 L, [place] # (Auto) 0.5, Eos # (Auto) 0.0, Baso # (Auto) 0.0, Sodium 139, Potassium 4.1, Chloride 101, Carbon Dioxide 29, Anion Gap 13.1, BUN 14, Creatinine 1.00, Estimated Creat Clear 125, Estimated GFR 77, Est GFR ( Amer) 93, Glucose 128 H, Calcium 8.7, Total Bilirubin 0.5, AST 41, ALT 33, Alkaline Phosphatase 97, Total Protein 7.4, Albumin 4.1, Globulin 3.3 H, Albumin/Globulin Ratio 1.2 12/31/24 05:57: Lactate 3.5 H 12/31/24 07:56: Urine Color Cancelled 12/31/24 07:56: Urine Color Yellow, Urine Appearance Cancelled 12/31/24 07:56: Urine Appearance Clear, Urine pH Cancelled 12/31/24 07:56: Urine pH 5.5, Ur Specific [place] Cancelled 12/31/24 07:56: Ur Specific [place] 1.025, Urine Protein Cancelled 12/31/24 07:56: Urine Protein Negative, Urine Glucose (UA) Cancelled 12/31/24 07:56: Urine Glucose (UA) Negative, Urine Ketones Cancelled 12/31/24 07:56: Urine Ketones Trace, Urine Blood Cancelled 12/31/24 07:56: Urine Blood Negative, Urine Nitrate Cancelled 12/31/24 07:56: Urine Nitrate Negative, Urine Bilirubin Cancelled 12/31/24 07:56: Urine Bilirubin Negative, Urine Urobilinogen Cancelled 12/31/24 07:56: Urine Urobilinogen 2.0, Ur Leukocyte Esterase Cancelled 12/31/24 07:56: Ur Leukocyte Esterase Negative, Urine RBC Cancelled 12/31/24 07:56: Urine RBC Occasional, Urine WBC Cancelled 12/31/24 07:56: Urine WBC Occasional, Ur Squamous Epith Cells Cancelled 12/31/24 07:56: Ur Squamous Epith Cells Occasional, Ur Transition Epith Cell Cancelled, Ur Renal Epithelial Cell Cancelled, Calcium Carbonate Cryst Cancelled, Calcium Phosphate Cryst Cancelled, Calcium Oxalate Crystal Cancelled, Cystine Crystals Cancelled, Uric Acid Crystals Cancelled, Triple Phos Crystals Cancelled, Tyrosine Crystals Cancelled, Other Crystals Cancelled, Amorphous Sediment Cancelled, Other Sediment Cancelled, Urine Bacteria Cancelled 12/31/24 07:56: Urine Bacteria Trace, Fatty Casts Cancelled, Hyaline Casts Cancelled, Fine Granular Casts Cancelled, Coarse Granular Casts Cancelled, Waxy Casts Cancelled, RBC Casts Cancelled, WBC Casts Cancelled, Other Casts Cancelled, Urine Mucus Cancelled 12/31/24 07:56: Urine Mucus Trace, Urine Trichomonas Cancelled, Urine Yeast Cancelled, Urine Sperm Cancelled 12/31/24 05:13 12/31/24 05:13 Orders (Tests/Meds): ED MEDICATIONS Generic Name Dose Route Start Last Admin Trade Name Freq PRN Reason Stop Dose Admin Piperacillin Sod/Tazobactam 100 mls @ 200 mls/hr 12/31/24 06:30 12/31/24 06:33 Sod 4.5 gm/ Sodium Chloride IV 01/10/25 06:29 200 mls/hr Q8H ERIN Administration Vancomycin HCl 2,000 mg/ 500 mls @ 250 mls/hr 12/31/24 06:45 12/31/24 06:55 Sodium Chloride IV 12/31/24 08:44 250 mls/hr ONCE ONE Administration Discontinued Medications Generic Name Dose Route Start Last Admin Trade Name Freq PRN Reason Stop Dose Admin Acetaminophen 1,000 mg 12/31/24 06:33 12/31/24 06:35 Acetaminophen 1,000mg/100ml Vial IV 12/31/24 06:34 1,000 mg ONCE ONE Administration Lactated Ringer's 1,000 mls @ 999 mls/hr 12/31/24 04:37 12/31/24 05:08 Lactated Ringer's 1000 Ml Bag IV 12/31/24 05:37 999 mls/hr .Q1H1M ONE Administration Lactated Ringer's 1,000 mls @ 999 mls/hr 12/31/24 06:26 12/31/24 06:34 Lactated Ringer's 1000 Ml Bag IV 12/31/24 07:26 999 mls/hr .Q1H1M ONE Administration Lactated Ringer's 500 mls @ 999 mls/hr 12/31/24 06:35 Lactated Ringer's 500ml IV 12/31/24 07:05 .Q31M ONE Ketorolac Tromethamine 15 mg 12/31/24 05:45 12/31/24 05:50 Ketorolac 30mg/Ml Vial IV 12/31/24 05:46 15 mg ONCE ONE Administration Miscellaneous 1 each 12/31/24 06:30 12/31/24 06:50 Vancomycin Consult Request NOTAPPLIC 01/30/25 06:29 1 each CONSULT PHARMACY ERIN Administration Ondansetron HCl 4 mg 12/31/24 06:33 12/31/24 06:35 Ondansetron 4mg/2ml Vial IV 12/31/24 06:34 4 mg ONCE ONE Administration ORDERS Category Date Time Status CXR --portable [XR chest portable] Stat Exams 12/31/24 06:21 Taken CBC w/Auto Diff [Complete Blood Count Auto Diff] Stat Lab 12/31/24 05:13 Completed CMP [Comprehensive Metabolic Panel] Stat Lab 12/31/24 05:13 Completed Full Resp Panel w/COVID ([facility]) Routine Lab 12/31/24 05:07 Received Lactic Acid Stat Lab 12/31/24 05:57 Completed Rapid PCR Covid and Flu A/B Stat Lab 12/31/24 05:07 Completed Urinalysis and Microscopic Stat Lab 12/31/24 07:56 Completed Blood Culture Stat Micro 12/31/24 06:32 Received Medical Decision Narrative: In summary, this 59-year-old male presents to the emergency department today with feelings of being cold and shaking. On initial evaluation patient is tachycardic but otherwise hemodynamically stable, temperature 99.3, lungs clear bilaterally, no peripheral edema, benign abdomen, GCS 15, no abnormalities on exam aside from mild tachycardia. Differential diagnosis includes but is not limited to malingering, secondary gain, with the patient reporting being cold I considered hypothermia but he actually has a slightly elevated temperature at 99.3 though he is not febrile. Initially just monitored the patient since he had a benign exam and stated he was worked up about the nurses at the facility not answering him and being cold and shaking so he was provided warm blankets and stated he was feeling better but he remained mildly tachycardic. With his persistent tachycardia despite no longer feeling cold and having reported chills with a history of deconditioning and cognitive delay, I decided to evaluate the patient with basic labs for viral syndrome, electrolyte derangements, or evidence of infection though I initially had low suspicion for these. Patient is receiving a liter of IV fluids for his tachycardia. Labs reviewed demonstrate no leukocytosis however patient does have neutrophil predominance, mild anemia stable from prior, platelets normal, CMP unremarkable and nonactionable. COVID, flu negative. On reassessment patient feels warmer and shivering has improved but he now is febrile to 101.5. He is receiving IV Toradol. Lungs are clear bilaterally and patient has no chest pain. He has a benign abdomen, no urinary complaints. He has no neurologic deficits, headache, or other complaints. Lactic was added to workup to further assess for sepsis findings. Lactic elevated at 3.5. Despite not having a leukocytosis, his tachycardia, fever, and lactic acidosis meet sepsis criteria. Therefore additional extensive workup has been added including chest x-ray to evaluate for intrathoracic infection such as pneumonia, also added urine studies, blood cultures, full respiratory panel. Additionally patient is receiving IV acetaminophen and broad-spectrum antibiotic until an etiology for his illness is identified. He reports mild nausea at this time but no other symptoms. Zofran administered. Patient's ideal body weight was calculated around 84 kg so he is receiving additional fluid bolus as well to receive approximately 30 mL/kg bolus. CXR personally interpreted demonstrates no dense consolidation. Radiology read pending. Patient handed off to Dr. Anaya in stable condition for further management and disposition pending additional workup. <Brooklynn Anaya MD - Last Filed: 12/31/24 08:42> Vital Signs: 12/31/24 04:14 12/31/24 04:23 12/31/24 04:31 Temperature 99.3 F Temperature Source Oral Pulse Rate 109 H 107 H Pulse Rate [Right] 109 H Respiratory Rate 18 Blood Pressure 135/72 129/83 Blood Pressure [Right Arm] 135/72 Blood Pressure Mean [Right Arm] 93 Blood Pressure Position [Right Arm] Supine 02 Sat by Pulse Oximetry 95 95 95 Oxygen Delivery Method Room Air 12/31/24 05:00 12/31/24 05:30 12/31/24 05:52 Temperature 101.5 F H Temperature Source Oral Pulse Rate 113 H 113 H Pulse Rate [Right] Respiratory Rate Blood Pressure 139/67 141/81 H Blood Pressure [Right Arm] Blood Pressure Mean [Right Arm] Blood Pressure Position [Right Arm] 02 Sat by Pulse Oximetry 96 96 Oxygen Delivery Method 12/31/24 06:41 12/31/24 07:07 12/31/24 07:30 Temperature 98.5 F Temperature Source Oral Pulse Rate 107 H 103 H Pulse Rate [Right] Respiratory Rate 17 Blood Pressure 134/78 115/66 Blood Pressure [Right Arm] Blood Pressure Mean [Right Arm] Blood Pressure Position [Right Arm] 02 Sat by Pulse Oximetry 92 L 94 L Oxygen Delivery Method Room Air Room Air 12/31/24 07:57 12/31/24 08:00 Temperature Temperature Source Pulse Rate 94 H 98 H Pulse Rate [Right] Respiratory Rate 18 23 Blood Pressure 105/67 L 112/60 Blood Pressure [Right Arm] Blood Pressure Mean [Right Arm] Blood Pressure Position [Right Arm] 02 Sat by Pulse Oximetry 94 L 94 L Oxygen Delivery Method Room Air Room Air Lab Data Lab Results 12/31/24 05:07: SARS-CoV-2 (PCR) Not detected, Influenza A Untype (PCR) Not detected, Influenza Type B (PCR) Not detected 12/31/24 05:13: WBC 9.0, RBC 4.63, Hgb 13.3 L, Hct 41.5 L, MCV 89.6, MCH 28.7, MCHC 32.0, RDW 13.2, Plt Count 173, MPV 8.0, Neut % (Auto) 87.0 H, Lymph % (Auto) 7.0 L, [place] % (Auto) 5.1, Eos % (Auto) 0.3, Baso % (Auto) 0.3, Neut # (Auto) 7.8, Lymph # (Auto) 0.6 L, [place] # (Auto) 0.5, Eos # (Auto) 0.0, Baso # (Auto) 0.0, Sodium 139, Potassium 4.1, Chloride 101, Carbon Dioxide 29, Anion Gap 13.1, BUN 14, Creatinine 1.00, Estimated Creat Clear 125, Estimated GFR 77, Est GFR ( Amer) 93, Glucose 128 H, Calcium 8.7, Total Bilirubin 0.5, AST 41, ALT 33, Alkaline Phosphatase 97, Total Protein 7.4, Albumin 4.1, Globulin 3.3 H, Albumin/Globulin Ratio 1.2 12/31/24 05:57: Lactate 3.5 H 12/31/24 07:56: Urine Color Cancelled 12/31/24 07:56: Urine Color Yellow, Urine Appearance Cancelled 12/31/24 07:56: Urine Appearance Clear, Urine pH Cancelled 12/31/24 07:56: Urine pH 5.5, Ur Specific [place] Cancelled 12/31/24 07:56: Ur Specific [place] 1.025, Urine Protein Cancelled 12/31/24 07:56: Urine Protein Negative, Urine Glucose (UA) Cancelled 12/31/24 07:56: Urine Glucose (UA) Negative, Urine Ketones Cancelled 12/31/24 07:56: Urine Ketones Trace, Urine Blood Cancelled 12/31/24 07:56: Urine Blood Negative, Urine Nitrate Cancelled 12/31/24 07:56: Urine Nitrate Negative, Urine Bilirubin Cancelled 12/31/24 07:56: Urine Bilirubin Negative, Urine Urobilinogen Cancelled 12/31/24 07:56: Urine Urobilinogen 2.0, Ur Leukocyte Esterase Cancelled 12/31/24 07:56: Ur Leukocyte Esterase Negative, Urine RBC Cancelled 12/31/24 07:56: Urine RBC Occasional, Urine WBC Cancelled 12/31/24 07:56: Urine WBC Occasional, Ur Squamous Epith Cells Cancelled 12/31/24 07:56: Ur Squamous Epith Cells Occasional, Ur Transition Epith Cell Cancelled, Ur Renal Epithelial Cell Cancelled, Calcium Carbonate Cryst Cancelled, Calcium Phosphate Cryst Cancelled, Calcium Oxalate Crystal Cancelled, Cystine Crystals Cancelled, Uric Acid Crystals Cancelled, Triple Phos Crystals Cancelled, Tyrosine Crystals Cancelled, Other Crystals Cancelled, Amorphous Sediment Cancelled, Other Sediment Cancelled, Urine Bacteria Cancelled 12/31/24 07:56: Urine Bacteria Trace, Fatty Casts Cancelled, Hyaline Casts Cancelled, Fine Granular Casts Cancelled, Coarse Granular Casts Cancelled, Waxy Casts Cancelled, RBC Casts Cancelled, WBC Casts Cancelled, Other Casts Cancelled, Urine Mucus Cancelled 12/31/24 07:56: Urine Mucus Trace, Urine Trichomonas Cancelled, Urine Yeast Cancelled, Urine Sperm Cancelled Orders (Tests/Meds): ED MEDICATIONS Generic Name Dose Route Start Last Admin Trade Name Freq PRN Reason Stop Dose Admin Piperacillin Sod/Tazobactam 100 mls @ 200 mls/hr 12/31/24 06:30 12/31/24 06:33 Sod 4.5 gm/ Sodium Chloride IV 01/10/25 06:29 200 mls/hr Q8H ERIN Administration Vancomycin HCl 2,000 mg/ 500 mls @ 250 mls/hr 12/31/24 06:45 12/31/24 06:55 Sodium Chloride IV 12/31/24 08:44 250 mls/hr ONCE ONE Administration Discontinued Medications Generic Name Dose Route Start Last Admin Trade Name Freq PRN Reason Stop Dose Admin Acetaminophen 1,000 mg 12/31/24 06:33 12/31/24 06:35 Acetaminophen 1,000mg/100ml Vial IV 12/31/24 06:34 1,000 mg ONCE ONE Administration Lactated Ringer's 1,000 mls @ 999 mls/hr 12/31/24 04:37 12/31/24 05:08 Lactated Ringer's 1000 Ml Bag IV 12/31/24 05:37 999 mls/hr .Q1H1M ONE Administration Lactated Ringer's 1,000 mls @ 999 mls/hr 12/31/24 06:26 12/31/24 06:34 Lactated Ringer's 1000 Ml Bag IV 12/31/24 07:26 999 mls/hr .Q1H1M ONE Administration Lactated Ringer's 500 mls @ 999 mls/hr 12/31/24 06:35 Lactated Ringer's 500ml IV 12/31/24 07:05 .Q31M ONE Ketorolac Tromethamine 15 mg 12/31/24 05:45 12/31/24 05:50 Ketorolac 30mg/Ml Vial IV 12/31/24 05:46 15 mg ONCE ONE Administration Miscellaneous 1 each 12/31/24 06:30 12/31/24 06:50 Vancomycin Consult Request NOTAPPLIC 01/30/25 06:29 1 each CONSULT PHARMACY ERIN Administration Ondansetron HCl 4 mg 12/31/24 06:33 12/31/24 06:35 Ondansetron 4mg/2ml Vial IV 12/31/24 06:34 4 mg ONCE ONE Administration ORDERS Category Date Time Status CXR --portable [XR chest portable] Stat Exams 12/31/24 06:21 Taken CBC w/Auto Diff [Complete Blood Count Auto Diff] Stat Lab 12/31/24 05:13 Completed CMP [Comprehensive Metabolic Panel] Stat Lab 12/31/24 05:13 Completed Full Resp Panel w/COVID ([facility]) Routine Lab 12/31/24 05:07 Received Lactic Acid Stat Lab 12/31/24 05:57 Completed Rapid PCR Covid and Flu A/B Stat Lab 12/31/24 05:07 Completed Urinalysis and Microscopic Stat Lab 12/31/24 07:56 Completed Blood Culture Stat Micro 12/31/24 06:32 Received Medical Decision Narrative: In summary, this 59-year-old male presents to the emergency department today with feelings of being cold and shaking. On initial evaluation patient is tachycardic but otherwise hemodynamically stable, temperature 99.3, lungs clear bilaterally, no peripheral edema, benign abdomen, GCS 15, no abnormalities on exam aside from mild tachycardia. Differential diagnosis includes but is not limited to malingering, secondary gain, with the patient reporting being cold I considered hypothermia but he actually has a slightly elevated temperature at 99.3 though he is not febrile. Initially just monitored the patient since he had a benign exam and stated he was worked up about the nurses at the facility not answering him and being cold and shaking so he was provided warm blankets and stated he was feeling better but he remained mildly tachycardic. With his persistent tachycardia despite no longer feeling cold and having reported chills with a history of deconditioning and cognitive delay, I decided to evaluate the patient with basic labs for viral syndrome, electrolyte derangements, or evidence of infection though I initially had low suspicion for these. Patient is receiving a liter of IV fluids for his tachycardia. Labs reviewed demonstrate no leukocytosis however patient does have neutrophil predominance, mild anemia stable from prior, platelets normal, CMP unremarkable and nonactionable. COVID, flu negative. On reassessment patient feels warmer and shivering has improved but he now is febrile to 101.5. He is receiving IV Toradol. Lungs are clear bilaterally and patient has no chest pain. He has a benign abdomen, no urinary complaints. He has no neurologic deficits, headache, or other complaints. Lactic was added to workup to further assess for sepsis findings. Lactic elevated at 3.5. Despite not having a leukocytosis, his tachycardia, fever, and lactic acidosis meet sepsis criteria. Therefore additional extensive workup has been added including chest x-ray to evaluate for intrathoracic infection such as pneumonia, also added urine studies, blood cultures, full respiratory panel. Additionally patient is receiving IV acetaminophen and broad-spectrum antibiotic until an etiology for his illness is identified. He reports mild nausea at this time but no other symptoms. Zofran administered. Patient's ideal body weight was calculated around 84 kg so he is receiving additional fluid bolus as well to receive approximately 30 mL/kg bolus. CXR personally interpreted demonstrates no dense consolidation. Radiology read pending. Patient handed off to Dr. Anaya in stable condition for further management and disposition pending additional workup. At 7a, I assumed care of pt pending nasopharyngeal respiratory panel and urine, if negative then will admit for prophylactic broad spectrum antibiotics until blood cultures return. Tisse reperfusion assessment with improvement in HR, capillary refill <2. UA with pyuria, negative nitrates, trace bacteria. Urine obtained via cath because patient wanted to try it but denies history difficulty emptying bladder. Denies abdominal pain or flank pain. Pt says he thinks it hurts to pee sometimes . Will go ahead and treat for acute complicated cystitis in setting of pyuria, bacteruria, fever, vomiting. Discussed with patient strict return precautions including inability to tolerate p.o. despite antinausea medicines or worsening symptoms. Critical Care <Marjorie Orozco MD - Last Filed: 12/31/24 06:59> Critical Care Time Critical Care Time: Yes Attestation: On 12/31/24, the high probability of a clinically significant, sudden or life threatening deterioration of the following system(s) required my full and direct attention, intervention and personal management. The time I documented below is in addition to time spent performing reported procedures but includes the following listed in this critical care notation. Total Time Total Critical Care Time: 30
[2024-12-31 05:29] LABS: Albumin Level 4.1 g/dl (3.5-5.0); Chloride 101 mmol/L (98-107); Potassium 4.1 mmoL/L (3.5-5.1); Sodium 139 mmol/L (136-145)
[2024-12-31 05:32] LABS: Alanine Aminotransferase 33 U/L (12-78); Albumin/Globulin Ratio 1.2 (1.1-1.8); Alkaline Phosphatase 97 U/L (38-126); Anion Gap 13.1 mEq/L (5-15); Aspartate Amino Transferase 41 U/L (17-59); Bilirubin,Total 0.5 mg/dl (0.2-1.3); Blood Urea Nitrogen 14 mg/dl (9-20); Carbon Dioxide 29 mmol/L (22.0-30.0); Creatinine Clearance Estimated 125 mL/min (50-200); Estimated Glomerular Filt Rate 77 ml/min (>60); GFR (African American) 93 ML/MIN (>60); Globulin 3.3 g/dL (1.3-3.2); Total Protein,Serum 7.4 g/dl (6.3-8.2)
[2024-12-31 05:33] LABS: Calcium 8.7 mg/dl (8.4-10.2); Glucose 128 mg/dl (74-100)
[2024-12-31] MEDS: KETOROLAC 30MG/ML VIAL 15 MG IV (05:50)
[2024-12-31 06:17] LABS: Lactic Acid 3.5 mmol/L (0.7-2.1)
--- NOTE | 2024-12-31 06:21 | XR_ITS ---
FINAL REPORT CLINICAL HISTORY: sepsis COMPARISON: 11/20/2023 FINDINGS: A portable view of the chest is obtained. Cardiac and mediastinal silhouettes are normal. There are bibasilar opacities present, greater on the right than on the left, which may represent atelectasis or pneumonia. There is no pleural effusion or pneumothorax. IMPRESSION: Bibasilar opacities, greater on the right than on the left, atelectasis versus pneumonia. Reviewed, Interpreted and Dictated by Hien Billy MD Transcribed by Shea Pappas Authenticated and [facility]
[2024-12-31] MEDS: PIPERACILLIN/TAZO 4.5 GM in 0.9 % SODIUM CHLORIDE 100 ML IV (06:33)
[2024-12-31] MEDS: ACETAMINOPHEN 1,000MG/100ML VIAL 1000 MG IV (06:35)
[2024-12-31] MEDS: ONDANSETRON 4MG/2ML VIAL 4 MG IV (06:35)
[2024-12-31] MEDS: VANCOMYCIN CONSULT REQUEST 1 EACH NOTAPPLIC (06:50)
[2024-12-31] MEDS: VANCOMYCIN HCL 2,000 MG in 0.9 % SODIUM CHLORIDE 500 ML 250 MG IV (06:55)
--- NOTE | 2024-12-31 07:30 | PC.NURSE ---
[facility] [employer] PT ON [employer]ING [employer]ATEGY LEAD
[2024-12-31 07:44] LABS: Adenovirus,PCR Not Detected (NotDetected); Bordetella Pertussis Not Detected (NotDetected); Chlamydophila Pneumoniae, PCR Not Detected (NotDetected); Coronavirus 19, PCR Not Detected (NotDetected); Coronavirus 229E Not Detected (NotDetected); Coronavirus NL63 Not Detected (NotDetected); Coronavirus OC43 Not Detected (NotDetected); Coronovirus HKU1,PCR Not Detected (NotDetected); Human Metapneumovirus Not Detected (NotDetected); Influenza A, PCR Not Detected (NotDetected); Influenza AH1, 2009 Not Detected (NotDetected); Influenza AH1, PCR Not Detected (NotDetected); Influenza AH3,PCR Not Detected (NotDetected); Influenza B, PCR Not Detected (NotDetected); Mycoplasma Pneumoniae, PCR Not Detected (NotDetected); Parainfluenza 1, PCR Not Detected (NotDetected); Parainfluenza 2, PCR Not Detected (NotDetected); Parainfluenza 3, PCR Not Detected (NotDetected); Parainfluenza 4, PCR Not Detected (NotDetected); Respiratory Syncytial Virus Not Detected (NotDetected); Rhinovirus/Enterovirus Not Detected (NotDetected)
--- NOTE | 2024-12-31 07:58 | PC.NURSE ---
pt in and out cathed for urine sample
[2024-12-31 08:10] LABS: Microscopic, Urine URINE MICROSCOPIC (MICROSCOPIC)
[2024-12-31 08:13] LABS: Appearance,Urine CLEAR (Clear); Bilirubin,Urine Negative (Negative); Blood, Urine Negative (Negative); Color,Urine YELLOW (Yellow); Glucose,Urine (UA) Negative (Negative); Ketones,Urine TRACE (Negative); Leukocyte Esterase,Urine Negative (Negative); Nitrate,Urine Negative (Negative); PH,Urine 5.5 (5.0-8.5); Protein,Urine Negative (Negative); Specific Gravity, Urine 1.025 (1.005-1.030)
[2024-12-31 08:22] LABS: Bacteria,Urine Trace /lpf; Mucus,Urine Trace /lpf; RBC,Urine Occasional #/hpf (0-3); Squamous Epithelial Cell,Urine Occasional #/hpf (0-5); WBC,Urine Occasional #/hpf (0-3)
--- NOTE | 2024-12-31 08:51 | PC.NURSE ---
I called [facility] and spoke with Dawn relaying that the pt is ready for d/c. She states their company car is in the shop and they do not have means to transport the pt back.
--- NOTE | 2024-12-31 08:57 | PC.NURSE ---
I spoke with Bessie at [facility] [employer] [facility] requesting a ride back to [facility] for . They are currently dropping another pt off but will be here in approximately 20 minutes.
[2024-12-31] MEDS: RINGERS SOLUTION,LACTATED 500 ML 999 ML IV (09:07)
[2024-12-31 10:00] LABS: Reflex Lactic Add Lactic Reflex
== END 2024-12-31 09:19 | disposition home or self-care (01) ==
PROVIDERS: Emergency Medicine; Emergency Provider Student in an Organized Health Care Education/Training Program
DX: N39.0 Urinary tract infection, site not specified (principal); R50.9 Fever, unspecified; R11.2 Nausea with vomiting, unspecified; R74.02 Elevation of levels of lactic acid dehydrogenase [LDH]; R82.71 Bacteriuria
CPT/HCPCS: 71045; 80053; 81001; 83605; 85025; 87040; 87633; 87636; 96361; 96365; 96366; 96367; 96375; 99291; J0131; J1885; J2405; J2543; J3370; J7120

== ENCOUNTER 2025-04-11 17:49 | Emergency (ER) | payer MEDICARE, OTHER, SELFPAY ==
[2025-04-11 17:49] VITALS: BP 121/72; PULSE 83; RESP 16; TEMP 36.8; O2SAT 95; BMI 36.5
--- OUTSIDE RECORDS SUMMARY | 2025-04-11 18:06 | XMS_ITS | Clinical Summary ---
Author Organization [facility] Address [address] [place] [address] Phone Care Team Providers Care House Mover Supervisor Name Role Phone Unavailable Primary Care Provider Unavailabl e Allergies No known active allergies Active Problems Patient Care Coordination No te Formatting of this note migh t be different from the original. Retroactive HCC audit completed by Alma Quinn RN on 01/28/2024. 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 Delusional disorder 10/08/2023 GERD (gastroesophageal reflux disease) Glucose intolerance 03/14/2022 Hyperlipidemia 03/14/2022 Obesity, unspecified 03/14/2022 HTN (hypertension) 03/14/2022 Resolved Problems Problem Noted Date Diagnosed Date Resolved Date Medication monitoring encounter 10/08/2023 03/10/2024 Learning disabilities 03/14/20222023 Adjustment disorder with mix ed anxiety and depressed mood 03/14/2022 03/10/2024 Social History Tobacco Use Types Packs/Day Years Used Date Smoking Tobacco: Never Assessed Sex and Gender Information Value Date Recorded Sex Assigned at Not on file Legal Sex Male 9:48 AM EDT Gender Identity Not on file Sexual Orientation Not on file Plan of Treatment Health Maintenance Due Date Last Done Comments Annual Wellness Exam 12/07/1970 DTaP/TDaP/Td (1 - Tdap) 12/07/1986 Hepatitis B Vaccine (1 of 3 - 19+ 3-dose series) 12/07/1986 Cologuard 12/07/2012 Colon Cancer Screening 12/07/2012 Colonoscopy 12/07/2012 FIT 12/07/2012 Sigmoidoscopy 12/07/2012 Virtual Colonography 12/07/2012 Pneumococcal Vaccine 50+ (1 of 1 - PCV) 12/07/2017 Zoster (1 of 2) 12/07/2017 COVID-19 Vaccine (1 - 2023-2 5 season) 2024 Influenza Vaccine (#1) 2025 Meningococcal B Vaccine Aged Out No l onger eligible based on patient's age to complete this topic Insurance [facility] MEDICARE [facility] [place] MEDICAID BH CARVE OUT [facility] COMMUNITY PLAN [place] MDR [facility] DUAL COMPLETE HMO [place]
--- NOTE | 2025-04-11 18:27 | HMH.EDGENADL ---
Discharge Plan Disposition Patient Disposition: Xfer Other Condition: Good Prescriptions Prescriptions: No Action quetiapine 100 mg tablet 100 mg PO HS Qty: 30 11RF lisinopril 10 mg tablet 10 mg PO DAILY Qty: 30 11RF divalproex 500 mg tablet,delayed release (DR/EC) 500 mg PO BID Qty: 60 11RF ondansetron 4 mg tablet,disintegrating 4 mg PO DAILY Qty: 30 0RF hydroxyzine pamoate 50 mg capsule 50 mg PO DAILY simvastatin 40 mg tablet 40 mg PO DAILY pantoprazole 20 mg tablet,delayed release (DR/EC) 20 mg PO DAILY azelastine 137 mcg (0.1 %) aerosol,spray 137 mcg INTRANASAL DAILY hydrochlorothiazide 12.5 mg tablet 12.5 mg PO DAILY ondansetron 4 mg tablet,disintegrating 4 mg PO Q8H PRN (Reason: nausea and vomiting) 3 Days Qty: 9 0RF amoxicillin-pot clavulanate 875-125 mg tablet 1 tab PO BID 7 Days Qty: 14 0RF Activity Restrictions/Add. Instructions Additional Instructions/Restrictions: The emergency department is not a substitute for transportation or primary care. Please follow-up closely with primary care. Return to the emergency department for new or concerning symptoms. Clinical Impressions Clinical Impression: Encounter for medical assessment Print Language Print Language: Tamazight Discharge ED Provider: Marisol Crowell General Adult HPI General Chief complaint: Recheck/Abnormal Lab/Rx Stated complaint: Well Check Time Seen by Provider: 04/11/25 18:03 Mode of Arrival: Ambulatory Source of Information: Patient Description of Symptoms (Recalled from ER Triage Doc. by RN): Patient here with no chief complaint. Brought here with EMS d/t not having a way back to [facility]. History of Present Illness HPI narrative: This patient is a 59-year-old male presenting from [facility] personal-custodial with no complaints. He states that he walked to the [employer] and needed a ride home, but they would not come to get him. Given this, 911 was contacted, and EMS brought him here for assessment. Patient again has no concerns or complaints and states has been doing fine. He arrives eating a snack and drinking a drink that he got at the [employer] station. Related Data Home Medications ?Medication ?Instructions ?Recorded ?Confirmed azelastine 137 mcg (0.1 %) nasal 137 mcg intranasal DAILY 07/19/23 08/05/23 spray hydrochlorothiazide 12.5 mg tablet 12.5 mg PO DAILY 07/19/23 08/05/23 hydroxyzine pamoate 50 mg capsule 50 mg PO DAILY 07/19/23 08/05/23 pantoprazole 20 mg tablet,delayed 20 mg PO DAILY 07/19/23 08/05/23 release simvastatin 40 mg tablet 40 mg PO DAILY 07/19/23 08/05/23 Previous Rx's ?Medication ?Instructions ?Recorded divalproex 500 mg tablet,delayed 500 mg PO BID #60 tabs 02/23/23 release lisinopril 10 mg tablet 10 mg PO DAILY #30 tabs 02/23/23 quetiapine 100 mg tablet 100 mg PO HS #30 tabs 02/23/23 ondansetron 4 mg disintegrating 4 mg PO DAILY #30 tabs 07/13/23 tablet amoxicillin 875 mg-potassium 1 tab PO BID 7 days #14 tabs 12/31/24 clavulanate 125 mg tablet ondansetron 4 mg disintegrating 4 mg PO Q8H PRN nausea and 12/31/24 tablet vomiting 3 days #9 tabs Allergies Allergy/AdvReac Type Severity Reaction Status Date / Time pollen extracts Allergy Other Verified 09/22/24 17:58 [facility] Disclaimer: The information contained in this section may have been updated after the patient was seen, as this information can be updated by other users. Social History Smoking Status: Never smoker alcohol intake: former current occupational status: unemployed Travel in the last 8 weeks?: None Have you lived/traveled outside US in past 30 days?: No Contact w/someone who lives/traveled outside US past 30 days?: No Exposure to someone with infectious disease in past 14 days?: No Do you have a fever (greater than 100.4 F or 38 C)?: No Have you tested positive for COVID-19?: No Exposed to someone with COVID-19 in past 14 days?: No Do you have a sore throat?: No Do you have a cough?: No Do you have any weakness?: No Do you have any diarrhea?: No Are you experiencing any unusual bleeding?: No Do you have any muscle aches/pain?: No Do you have any abdominal pain?: No Are you experiencing loss of taste or smell?: No Other Medical History Have you received the Flu Vaccine for this season: No Have you received the Pneumonia Vaccine: No ROS Obtained: Yes All systems reviewed & no additional complaints except as documented Physical Exam General General appearance: alert and in no apparent distress Head Head exam: atraumatic and normocephalic Eye Eye exam: Present normal appearance, PERRL and EOMI ENT ENT exam: Present normal exam, normal oropharynx, mucous membranes moist and normal external ear exam Neck Neck exam: Present normal inspection, full ROM and trachea midline; Absent tenderness Chest Chest inspection: Present normal inspection and symmetric chest wall rise; Absent tenderness Respiratory Respiratory exam: Present normal lung sounds bilaterally; Absent respiratory distress, wheezes, stridor or accessory muscle use Cardiovascular Cardiovascular exam: Present regular rate and normal rhythm Abdominal Exam Abdominal exam: Present soft; Absent distention, tenderness or guarding Extremities Exam Extremities exam: Present normal inspection, full ROM and normal capillary refill; Absent tenderness or edema Back Exam Back exam: Present normal inspection and full ROM; Absent tenderness Neurological Exam Neurological exam: Present alert, oriented X3, CN II-XII intact and normal gait; Absent motor sensory deficit Psychiatric Psychiatric exam: Present normal affect and normal mood Skin Skin exam: Present warm and dry Medical Decision Making Medical Records Medical records reviewed: Yes I reviewed the patient's medical records. Screening: Per USPSTF and CDC recommendations, given the prevalence of disease in our region, it is our hospital?s policy to screen for HIV and viral Hepatitis for all patients aged 18 and over and those with ongoing risk factors. Kenan Inquiry Pt receiving controlled substance: No Vital Signs: 04/11/25 17:49 04/11/25 17:49 Temperature 98.3 F 98.3 F Temperature Source Oral Pulse Rate 83 Pulse Rate [Right] 83 Respiratory Rate 16 16 Blood Pressure 121/72 Blood Pressure [Right Arm] 121/72 Blood Pressure Mean [Right Arm] 88 Blood Pressure Source [Right Arm] Automatic Cuff Blood Pressure Position [Right Arm] Sitting 02 Sat by Pulse Oximetry 95 95 Oxygen Delivery Method Room Air Room Air Lab Data Lab results reviewed: Yes I reviewed the patient's lab results. Medical Decision Narrative: In summary, this patient is a 59-year-old male presenting to the Emergency Department for evaluation because he needed a ride back to his personal custodial. No one would come and get him, so EMS brought him here. He denies any concerns or complaints. On exam, patient is sitting upright in no distress eating a snack and has no concerns or complaints. Vitals are reassuring. Ultimately, I do not feel he has an emergency medical condition that requires evaluation in the hospital at this time. I contacted [facility] and spoke with Dawn who advised they can no longer come to get patients because it is a liability issue. I advised that they used to transport the patient back themselves, as we do not have a method of transportation from the emergency department for nonurgent matters. She advised that they are no longer allowed to and recommended I call her district manager major accounts sales Radha. I spoke with Radha on the phone who advised that it is a liability issue and that they cannot put [place] of the state in their vehicles. They state that they do not offer any form of transportation for these patients, especially without contacting their guardians. I advised that we never had previously been required to contact the one of the state to release the patient, and she stated she is not sure why or when this would have changed. She called her boss, and ultimately they arranged transport back to [facility] via taxi. Patient was transported back in stable condition. Critical Care Critical Care Time Critical Care Time: No
[2025-04-11 20:07] VITALS: BP 125/87; PULSE 78; RESP 18; TEMP 36.8; O2SAT 99
== END 2025-04-11 20:08 | disposition other institution (70) ==
PROVIDERS: Emergency Provider Emergency Medicine
DX: Z00.00 Encounter for general adult medical examination without abnormal findings (principal)
CPT/HCPCS: 99281

== ENCOUNTER 2025-04-29 09:36 | Emergency (ER) | payer MEDICARE, OTHER, SELFPAY ==
[2025-04-29 09:40] VITALS: BP 119/67; PULSE 89; O2SAT 96
--- OUTSIDE RECORDS SUMMARY | 2025-04-29 09:41 | XMS_ITS | Clinical Summary ---
Author Organization [facility] Address [address] [place] [address] Phone Care Team Providers Care Ruby Rails Developer Name Role Phone Unavailable Primary Care Provider [...] to complete this topic Insurance [facility] MEDICARE [facility] [place] MEDICAID [place] CARVE OUT [facility] COMMUNITY PLAN [place] MDR [facility] DUAL COMPLETE HMO [place]
[2025-04-29 09:43] VITALS: BP 119/67; PULSE 113; RESP 15; TEMP 36.8; O2SAT 96; BMI 33.9
--- NOTE | 2025-04-29 09:54 | HMH.EDGENADL ---
Discharge Plan Disposition Patient Disposition: Home, Self-Care Prescriptions Prescriptions: No Action quetiapine 100 mg tablet 100 mg PO HS Qty: 30 11RF lisinopril 10 mg tablet 10 mg PO DAILY Qty: 30 11RF divalproex 500 mg tablet,delayed release (DR/EC) 500 mg PO BID Qty: 60 11RF ondansetron 4 mg tablet,disintegrating 4 mg PO DAILY Qty: 30 0RF hydroxyzine pamoate 50 mg capsule 50 mg PO DAILY simvastatin 40 mg tablet 40 mg PO DAILY pantoprazole 20 mg tablet,delayed release (DR/EC) 20 mg PO DAILY azelastine 137 mcg (0.1 %) aerosol,spray 137 mcg INTRANASAL DAILY hydrochlorothiazide 12.5 mg tablet 12.5 mg PO DAILY ondansetron 4 mg tablet,disintegrating 4 mg PO Q8H PRN (Reason: nausea and vomiting) 3 Days Qty: 9 0RF amoxicillin-pot clavulanate 875-125 mg tablet 1 tab PO BID 7 Days Qty: 14 0RF Referrals Follow up/Referrals: Provider,MD Fidel [Primary Care Provider, Medical] - See instructions Petr Herrera MD [Staff Physician, Cardiology] - See instructions Activity Restrictions/Add. Instructions Additional Instructions/Restrictions: No emergent medical condition identified today to explain your generalized weakness. Your phosphorus levels were very mildly depressed which could be causing some weakness please drink plenty of milk and continue normal diet. Please follow-up with primary care doctor as needed or return with any specific or different concerns or if you get much worse. You may also follow-up with our terrazzo worker for more comprehensive evaluation of your heart given the fact that you felt like you passed out today. But no obvious cardiopulmonary emergency identified today. Clinical Impressions Clinical Impression: Generalized weakness, Hypophosphatemia, Syncope Print Language Print Language: French Discharge ED Provider: Leann Mace General Adult HPI General Chief complaint: Weakness Stated complaint: weakness Time Seen by Provider: 04/29/25 09:40 Mode of Arrival: EMS Source of Information: EMS Description of Symptoms (Recalled from ER Triage Doc. by RN): patient states he got up to go to the bathroom when he became lightheaded fell and passed out. he denies hitting his head. he states his right side landed on the floor. he denies any pain on arrival. reports he is weak abnd wants a sprite to drink. History of Present Illness HPI narrative: Patient is a 59-year-old who currently resides on presented with generalized weakness. States this has been intermittent and ongoing for quite some time but worse today. Denies any nausea vomiting diarrhea chest pain shortness of breath fevers chills or other focal or localizing symptoms. States that he had an embarrassing moment when he tried to make it to the bathroom today and was unable to due to his weakness and urinated on himself. Denies any pain anywhere. Did tell EMS that he believes that he passed out. He denies any medication changes at [facility]. States that symptoms he deals with hypoglycemia. Related Data Home Medications ?Medication ?Instructions ?Recorded ?Confirmed azelastine 137 mcg (0.1 %) nasal 137 mcg intranasal DAILY 07/19/23 08/05/23 spray hydrochlorothiazide 12.5 mg tablet 12.5 mg PO DAILY 07/19/23 08/05/23 hydroxyzine pamoate 50 mg capsule 50 mg PO DAILY 07/19/23 08/05/23 pantoprazole 20 mg tablet,delayed 20 mg PO DAILY 07/19/23 08/05/23 release simvastatin 40 mg tablet 40 mg PO DAILY 07/19/23 08/05/23 Previous Rx's ?Medication ?Instructions ?Recorded divalproex 500 mg tablet,delayed 500 mg PO BID #60 tabs 02/23/23 release lisinopril 10 mg tablet 10 mg PO DAILY #30 tabs 02/23/23 quetiapine 100 mg tablet 100 mg PO HS #30 tabs 02/23/23 ondansetron 4 mg disintegrating 4 mg PO DAILY #30 tabs 07/13/23 tablet amoxicillin 875 mg-potassium 1 tab PO BID 7 days #14 tabs 12/31/24 clavulanate 125 mg tablet ondansetron 4 mg disintegrating 4 mg PO Q8H PRN nausea and 12/31/24 tablet vomiting 3 days #9 tabs Allergies Allergy/AdvReac Type Severity Reaction Status Date / Time pollen extracts Allergy Other Verified 09/22/24 17:58 [facility] Disclaimer: The information contained in this section may have been updated after the patient was seen, as this information can be updated by other users. Social History Smoking Status: Never smoker alcohol intake: former current occupational status: unemployed Travel in the last 8 weeks?: None Have you lived/traveled outside US in past 30 days?: No Contact w/someone who lives/traveled outside US past 30 days?: No Exposure to someone with infectious disease in past 14 days?: No Do you have a fever (greater than 100.4 F or 38 C)?: No Have you tested positive for COVID-19?: No Exposed to someone with COVID-19 in past 14 days?: No Do you have a sore throat?: No Do you have a cough?: No Do you have any weakness?: No Do you have any diarrhea?: No Are you experiencing any unusual bleeding?: No Do you have any muscle aches/pain?: No Do you have any abdominal pain?: No Are you experiencing loss of taste or smell?: No Other Medical History Have you received the Flu Vaccine for this season: No Have you received the Pneumonia Vaccine: No ROS Obtained: Yes All systems reviewed & no additional complaints except as documented Physical Exam General General appearance: alert and in no apparent distress ENT ENT exam: Present mucous membranes dry Respiratory Respiratory exam: Present normal lung sounds bilaterally; Absent respiratory distress Cardiovascular Cardiovascular exam: Present tachycardia (Heart rate 115 on my exam) Abdominal Exam Abdominal exam: Present soft; Absent distention or tenderness Neurological Exam Neurological exam: Present alert, oriented X3 and other (Nonfocal neurologic exam) Medical Decision Making Medical Records Screening: Per USPSTF and CDC recommendations, given the prevalence of disease in our region, it is our hospital?s policy to screen for HIV and viral Hepatitis for all patients aged 18 and over and those with ongoing risk factors. Kenan Inquiry Pt receiving controlled substance: No Vital Signs: 04/29/25 09:40 04/29/25 09:43 04/29/25 10:01 Temperature 98.2 F Temperature Source Oral Pulse Rate 89 107 H Pulse Rate [Right Radial] 113 H Respiratory Rate 15 Blood Pressure 119/67 107/52 L Blood Pressure [Right Arm] 119/67 Blood Pressure Mean [Right Arm] 84 Blood Pressure Source [Right Arm] Automatic Cuff Blood Pressure Position [Right Arm] Supine 02 Sat by Pulse Oximetry 96 96 93 L Oxygen Delivery Method Room Air 04/29/25 10:31 Temperature Temperature Source Pulse Rate Pulse Rate [Right Radial] Respiratory Rate 21 Blood Pressure 124/59 L Blood Pressure [Right Arm] Blood Pressure Mean [Right Arm] Blood Pressure Source [Right Arm] Blood Pressure Position [Right Arm] 02 Sat by Pulse Oximetry Oxygen Delivery Method Lab Data Lab results reviewed: Yes I reviewed the patient's lab results. Lab Results 04/29/25 09:44: WBC 10.9 H, RBC 4.64, Hgb 13.1 L, Hct 41.5 L, MCV 89.4, MCH 28.2, MCHC 31.6 L, RDW 13.2, Plt Count 162, MPV 8.5, Neut % (Auto) 86.0 H, Lymph % (Auto) 5.8 L, Barrow % (Auto) 7.4, Eos % (Auto) 0.1, Baso % (Auto) 0.2, Neut # (Auto) 9.4 H, Lymph # (Auto) 0.6 L, Barrow # (Auto) 0.8, Eos # (Auto) 0.0, Baso # (Auto) 0.0, Sodium 140, Potassium 4.0, Chloride 106, Carbon Dioxide 28, Anion Gap 10.0, BUN 17, Creatinine 0.80, Estimated Creat Clear 146, Estimated GFR 100, Est GFR ( Amer) 121, Glucose 129 H, Calcium 9.2, Phosphorus 1.8 L, Magnesium 1.8, Total Bilirubin 0.4, AST 56, ALT 46, Alkaline Phosphatase 94, Troponin I < 0.01, Total Protein 7.1, Albumin 4.2, Globulin 2.9, Albumin/Globulin Ratio 1.4, TSH 1.48 04/29/25 09:44 04/29/25 09:44 Orders (Tests/Meds): ED MEDICATIONS Discontinued Medications Generic Name Dose Route Start Last Admin Trade Name Freq PRN Reason Stop Dose Admin Lactated Ringer's 1,000 mls @ 999 mls/hr 04/29/25 10:00 04/29/25 10:00 Lactated Ringer's 1000 Ml Bag IV 04/29/25 11:00 999 mls/hr .Q1H1M ERIN Administration Potassium Phosphate 500 mg 04/29/25 10:30 04/29/25 10:51 K-Phos Neutral 250mg Tablet PO 04/29/25 10:31 500 mg ONCE ONE Administration ORDERS Category Date Time Status BNP [NT Pro Brain Natriuretic Pep.] Stat Lab 04/29/25 09:44 Results CBC w/Auto Diff [Complete Blood Count Auto Diff] Stat Lab 04/29/25 09:44 Completed CMP [Comprehensive Metabolic Panel] Stat Lab 04/29/25 09:44 Results HIV Combo Stat Lab 04/29/25 09:44 Received Hepatitis C Ab Qual. W/ RFX Stat Lab 04/29/25 09:44 Received Magnesium Stat Lab 04/29/25 09:44 Results Phosphorous Stat Lab 04/29/25 09:44 Results TSH [Thyroid Stimulating Hormone] Stat Lab 04/29/25 09:44 Results Trop I [Troponin I] Stat Lab 04/29/25 09:44 Results Troponin I Q3H Lab 04/29/25 13:00 Ordered Troponin I Q3H Lab 04/29/25 16:00 Ordered UA [Urinalysis and Microscopic] Stat Lab 04/29/25 10:33 Received Medical Decision Narrative: 59-year-old with above history and physical presented today with generalized weakness and possible syncopal episode. Differential is broad including arrhythmia electrolyte abnormalities metabolic abnormalities such as hypoglycemia heart failure etc. 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 On reassessment 11:12 AM patient remains clinically stable states he is feeling somewhat better his phosphorus was replaced orally has been advised to drink milk at home. This may be contributing to some of his generalized weakness which seems to be chronic. No evidence from a cardiopulmonary standpoint that he has had an emergent medical condition tonight. EKG was performed personal interpreted which shows a ventricular rate of 100 normal axis no conduction abnormalities no acute ischemic changes. Labs are unremarkable on my reassessment he had oxygen saturations of 98% heart rate is currently in the 90s blood pressure is normal does not consistent with a PE acute coronary syndrome myocardial injury significant arrhythmia etc. I have given him referral to our terrazzo worker if he wants more comprehensive evaluation of his heart which is reasonable. Largely though however he states that this weakness is chronic. Seems to be at his baseline. No further need for hospitalization or emergent intervention at this point. Patient was discharged in stable condition with advised to closely follow-up with cardiology and his primary care doctor. Critical Care Critical Care Time Critical Care Time: No
[2025-04-29 09:59] LABS: Hematocrit 41.5 % (42.0-52.0); Hemoglobin 13.1 g/dL (14.1-18.0); Immature Granulocytes % 0.5 %; Mean Corpuscular HGB Conc 31.6 g/dL (31.8-35.4); Mean Corpuscular Hemoglobin 28.2 pg (27.0-31.2); Mean Corpuscular Volume 89.4 fl (80-94); Nucleated Red Blood Cells % 0 %; Platelet Count 162 K/mm3 (142-424); Red Blood Count 4.64 M/mm3 (4.60-6.20); Red Cell Distribution Width-SD 43.8 fL; White Blood Count 10.9 K/mm3 (4.8-10.8)
[2025-04-29] MEDS: LACTATED RINGERS 1000ML 1,000 ML 999 ML IV (10:00)
[2025-04-29 10:01] VITALS: BP 107/52; PULSE 107; O2SAT 93
[2025-04-29 10:04] LABS: Albumin Level 4.2 g/dl (3.5-5.0); Chloride 106 mmol/L (98-107)
[2025-04-29 10:05] LABS: Potassium 4.0 mmoL/L (3.5-5.1); Sodium 140 mmol/L (136-145)
[2025-04-29 10:07] LABS: Alanine Aminotransferase 46 U/L (12-78); Aspartate Amino Transferase 56 U/L (17-59); Blood Urea Nitrogen 17 mg/dl (9-20); Creatinine Clearance Estimated 146 mL/min (50-200); Creatinine,Serum 0.80 mg/dl (0.66-1.25); Estimated Glomerular Filt Rate 100 ml/min (>60); GFR (African American) 121 ML/MIN (>60)
[2025-04-29 10:08] LABS: Albumin/Globulin Ratio 1.4 (1.1-1.8); Alkaline Phosphatase 94 U/L (38-126); Anion Gap 10.0 mEq/L (5-15); Bilirubin,Total 0.4 mg/dl (0.2-1.3); Calcium 9.2 mg/dl (8.4-10.2); Carbon Dioxide 28 mmol/L (22.0-30.0); Globulin 2.9 g/dL (1.3-3.2); Glucose 129 mg/dl (74-100); Magnesium 1.8 mg/dl (1.6-2.3); Total Protein,Serum 7.1 g/dl (6.3-8.2)
[2025-04-29 10:16] LABS: Phosphorous 1.8 mg/dl (2.5-4.5)
[2025-04-29 10:20] LABS: Troponin I < 0.01 ng/ml (0.00-0.034)
--- NOTE | 2025-04-29 10:26 | ECG_ITS ---
APPROVED REPORT Exam: Resting ECG HR:100 bpm ECG Measurements Heart Rate 100 AXES VA 157 P 56 QRSd 96 QRS 90 QT 329 T 69 QTc 386 Conclusion SINUS TACHYCARDIA NONSPECIFIC T-WAVE ABNORMALITY ABNORMAL RHYTHM ECG UNCONFIRMED REPORT Electronically signed by : Laz Mace, 04/29/2025 15:49:12
[2025-04-29 10:31] VITALS: BP 124/59; RESP 21
[2025-04-29 10:36] LABS: Microscopic, Urine URINE MICROSCOPIC (MICROSCOPIC)
[2025-04-29 10:39] LABS: Thyroid Stimulating Hormone 1.48 uIU/mL (0.465-4.68)
[2025-04-29] MEDS: K-PHOS NEUTRAL 250MG TABLET 500 MG PO (10:51)
[2025-04-29 11:01] VITALS: BP 120/66; RESP 16
[2025-04-29 11:02] LABS: NT Pro Brain Natriuretic Pep. 119 pg/mL (0-125)
--- NOTE | 2025-04-29 11:20 | PC.NURSE ---
rah will transport patient back to [facility]
[2025-04-29 11:29] VITALS: BP 126/85; PULSE 75; RESP 15; TEMP 36.9; O2SAT 99
[2025-04-29 11:33] LABS: Bilirubin,Urine Negative (Negative); Color,Urine YELLOW (Yellow); Glucose,Urine (UA) Negative (Negative); Ketones,Urine TRACE (Negative); Leukocyte Esterase,Urine Negative (Negative); PH,Urine 7.0 (5.0-8.5); Protein,Urine Negative (Negative); Specific Gravity, Urine 1.015 (1.005-1.030); Urobilinogen,Urine 4.0 EU/dl (0.2)
[2025-04-29 11:34] LABS: Hepatitis C Ab Qual. W/ RFX NEGATIVE (Negative)
[2025-04-29 11:59] LABS: Bacteria,Urine Trace /lpf; Squamous Epithelial Cell,Urine Occasional #/hpf (0-5); WBC,Urine Occasional #/hpf (0-3)
== END 2025-04-29 11:30 | disposition home or self-care (01) ==
PROVIDERS: Emergency Provider Student in an Organized Health Care Education/Training Program
DX: R55 Syncope and collapse (principal); E83.39 Other disorders of phosphorus metabolism; R53.1 Weakness
CPT/HCPCS: 80053; 81001; 83735; 83880; 84100; 84443; 84484; 85025; 86803; 87389; 93005; 96360; 96361; 99284; J7120

== ENCOUNTER 2025-07-09 05:17 | Emergency (ER) | payer MEDICARE, OTHER, SELFPAY ==
[2025-07-09] VITALS (9 sets, daily range): BP systolic 109–120; BP diastolic 70–71; PULSE 86–98; RESP 16; TEMP 38.6; O2SAT 93–98; BMI 34.9
--- NOTE | 2025-07-09 05:22 | HMH.EDGENADL ---
Discharge Plan Disposition Patient Disposition: Home, Self-Care Prescriptions Prescriptions: No Action quetiapine 100 mg tablet 100 mg PO HS Qty: 30 11RF lisinopril 10 mg tablet 10 mg PO DAILY Qty: 30 11RF divalproex 500 mg tablet,delayed release (DR/EC) 500 mg PO BID Qty: 60 11RF ondansetron 4 mg tablet,disintegrating 4 mg PO DAILY Qty: 30 0RF hydroxyzine pamoate 50 mg capsule 50 mg PO DAILY simvastatin 40 mg tablet 40 mg PO DAILY pantoprazole 20 mg tablet,delayed release (DR/EC) 20 mg PO DAILY azelastine 137 mcg (0.1 %) aerosol,spray 137 mcg INTRANASAL DAILY hydrochlorothiazide 12.5 mg tablet 12.5 mg PO DAILY ondansetron 4 mg tablet,disintegrating 4 mg PO Q8H PRN (Reason: nausea and vomiting) 3 Days Qty: 9 0RF amoxicillin-pot clavulanate 875-125 mg tablet 1 tab PO BID 7 Days Qty: 14 0RF Activity Restrictions/Add. Instructions Additional Instructions/Restrictions: Patient has a fever. Likely upper respiratory infection given nasal drainage. Urinalysis negative for UTI. Please follow-up with your primary care provider. Please return to the emergency department if you develop any new or worsening symptoms or become concerned for your health. Clinical Impressions Clinical Impression: Fall, Fever Print Language Print Language: Guyanese Discharge ED Provider: Pritesh Reese General Adult HPI General Chief complaint: Fall Stated complaint: Fall Time Seen by Provider: 07/09/25 05:22 History of Present Illness HPI narrative: 59-year-old male with history of seizure disorder, resident at [facility] presents for fall. He reports that he was getting into bed when he felt like his body gave out on him. He denies loss of consciousness. Does not report any significant past medical history. He denies any pain or symptoms from the fall. He mentions wanting to leave [facility]. Related Data Home Medications ?Medication ?Instructions ?Recorded ?Confirmed azelastine 137 mcg (0.1 %) nasal 137 mcg intranasal DAILY 07/19/23 08/05/23 spray hydrochlorothiazide 12.5 mg tablet 12.5 mg PO DAILY 07/19/23 08/05/23 hydroxyzine pamoate 50 mg capsule 50 mg PO DAILY 07/19/23 08/05/23 pantoprazole 20 mg tablet,delayed 20 mg PO DAILY 07/19/23 08/05/23 release simvastatin 40 mg tablet 40 mg PO DAILY 07/19/23 08/05/23 Previous Rx's ?Medication ?Instructions ?Recorded divalproex 500 mg tablet,delayed 500 mg PO BID #60 tabs 02/23/23 release lisinopril 10 mg tablet 10 mg PO DAILY #30 tabs 02/23/23 quetiapine 100 mg tablet 100 mg PO HS #30 tabs 02/23/23 ondansetron 4 mg disintegrating 4 mg PO DAILY #30 tabs 07/13/23 tablet amoxicillin 875 mg-potassium 1 tab PO BID 7 days #14 tabs 12/31/24 clavulanate 125 mg tablet ondansetron 4 mg disintegrating 4 mg PO Q8H PRN nausea and 12/31/24 tablet vomiting 3 days #9 tabs Allergies Allergy/AdvReac Type Severity Reaction Status Date / Time pollen extracts Allergy Other Verified 09/22/24 17:58 [facility] Disclaimer: The information contained in this section may have been updated after the patient was seen, as this information can be updated by other users. Social History Smoking Status: Never smoker alcohol intake: former current occupational status: unemployed Travel in the last 8 weeks?: None Other Medical History Have you received the Flu Vaccine for this season: No Have you received the Pneumonia Vaccine: No ROS Obtained: Yes All systems reviewed & no additional complaints except as documented Physical Exam General General appearance: alert and in no apparent distress Head Head exam: atraumatic and normocephalic Eye Eye exam: Present normal appearance, PERRL and EOMI ENT ENT exam: Present normal oropharynx, normal external ear exam and other (Nasal congestion noted) Neck Neck exam: Present normal inspection and full ROM Chest Chest inspection: Present normal inspection and symmetric chest wall rise; Absent tenderness Respiratory Respiratory exam: Present normal lung sounds bilaterally; Absent respiratory distress Cardiovascular Cardiovascular exam: Present regular rate and normal rhythm Abdominal Exam Abdominal exam: Present soft; Absent distention, tenderness or guarding Extremities Exam Extremities exam: Present normal inspection; Absent edema or joint swelling Back Exam Back exam: Present normal inspection; Absent tenderness Neurological Exam Neurological exam: Present alert and oriented X3; Absent motor sensory deficit Psychiatric Psychiatric exam: Present normal affect and normal mood Skin Skin exam: Present warm, dry and normal color Lymphatic Lymphatic Findings: no adenopathy Medical Decision Making Medical Records Medical records reviewed: Yes I reviewed the patient's medical records. Screening: Per USPSTF and CDC recommendations, given the prevalence of disease in our region, it is our hospital?s policy to screen for HIV and viral Hepatitis for all patients aged 18 and over and those with ongoing risk factors. Kenan Inquiry Pt receiving controlled substance: No Kenan was queried for this patient: No Vital Signs: 07/09/25 05:17 07/09/25 05:28 07/09/25 05:29 Temperature 101.5 F H Temperature Source Oral Pulse Rate 93 H Pulse Rate [Left Radial] 95 H Respiratory Rate 16 Blood Pressure Blood Pressure [Right Arm] 120/71 Blood Pressure Mean Blood Pressure Mean [Right Arm] 87 Blood Pressure Source Blood Pressure Source [Right Arm] Automatic Cuff Blood Pressure Position Blood Pressure Position [Right Arm] Supine 02 Sat by Pulse Oximetry 97 95 95 Oxygen Delivery Method Room Air Room Air 07/09/25 05:30 07/09/25 05:31 07/09/25 05:31 Temperature Temperature Source Pulse Rate 93 H 98 H Pulse Rate [Left Radial] Respiratory Rate Blood Pressure 109/70 L Blood Pressure [Right Arm] Blood Pressure Mean 83 Blood Pressure Mean [Right Arm] Blood Pressure Source Blood Pressure Source [Right Arm] Blood Pressure Position Blood Pressure Position [Right Arm] 02 Sat by Pulse Oximetry 93 L 94 L Oxygen Delivery Method 07/09/25 05:47 07/09/25 06:00 07/09/25 06:00 Temperature Temperature Source Pulse Rate 91 H 92 H Pulse Rate [Left Radial] Respiratory Rate Blood Pressure 109/70 L Blood Pressure [Right Arm] Blood Pressure Mean 82 Blood Pressure Mean [Right Arm] Blood Pressure Source Blood Pressure Source [Right Arm] Blood Pressure Position Blood Pressure Position [Right Arm] 02 Sat by Pulse Oximetry 98 96 Oxygen Delivery Method 07/09/25 06:15 07/09/25 06:23 Temperature 101.5 F H Temperature Source Oral Pulse Rate 86 91 H Pulse Rate [Left Radial] Respiratory Rate 16 Blood Pressure 109/70 L Blood Pressure [Right Arm] Blood Pressure Mean Blood Pressure Mean [Right Arm] Blood Pressure Source Automatic Cuff Blood Pressure Source [Right Arm] Blood Pressure Position Supine Blood Pressure Position [Right Arm] 02 Sat by Pulse Oximetry 94 L Oxygen Delivery Method Room Air Lab Data Lab results reviewed: Yes I reviewed the patient's lab results. Lab Results 07/09/25 05:49: Urine Color Yellow, Urine Appearance Clear, Urine pH 6.0, Ur Specific [place] 1.025, Urine Protein Negative, Urine Glucose (UA) Negative, Urine Ketones 1+, Urine Blood Negative, Urine Nitrate Negative, Urine Bilirubin 1+ A, Urine Urobilinogen 1.0, Ur Leukocyte Esterase Negative, Urine RBC Occasional, Urine Mucus Trace Orders (Tests/Meds): ORDERS Category Date Time Status UA [Urinalysis and Microscopic] Stat Lab 07/09/25 05:49 Completed Medical Decision Narrative: 59-year-old male with history of seizure disorder, resident at [facility] presents for fall. Denies any symptoms at this time or at the time of the fall. Did not lose consciousness or hit his head.. History was obtained via interactive discussion with patient, EMS, chart review. On arrival, patient is febrile to 101, hemodynamically stable, alert and oriented, moving all extremities spontaneously. Full physical exam performed and significant for no significant tenderness or signs of trauma. Patient does have significant nasal congestion Differential includes but is not limited to trauma, URI, UTI. I considered obtaining trauma imaging but given he is asymptomatic and has no trauma on exam I do not think this is indicated at this time. Patient does have a fever but denies any symptoms. He does have nasal congestion, his fever is likely resulting from a URI. He has had UTIs in the past so we will obtain a urinalysis. Laboratory workup independently interpreted by me and significant for urinalysis negative for infection. Low concern for emergent pathology at this time. Patient likely has a developing viral illness. No evidence of trauma on exam. Patient discharged in stable condition. Procedures Risk/Benefits of Procedure(s) Were Explained: Yes Critical Care Critical Care Time Critical Care Time: No
--- OUTSIDE RECORDS SUMMARY | 2025-07-09 05:51 | XMS_ITS | Clinical Summary ---
Author Organization [facility] Address [address] [place] [address] Phone Care Team Providers Care Dobie Man Name Role Phone Unavailable Primary Care Provider [...] of 2) 12/07/2017 COVID-19 Vaccine (1 - 2024-2 6 season) 2025 Influenza Vaccine (#1) 2025 Meningococcal B Vaccine Aged Out No l onger eligible based on patient's age to complete this topic Insurance [facility] [facility] MEDICARE [facility] [place] MEDICAID [place] CARVE OUT [facility] COMMUNITY PLAN [place] MDR [facility] DUAL COMPLETE HMO [place]
--- NOTE | 2025-07-09 05:54 | PC.NURSE ---
Addendum entered by Flaca Acosta RN 07/09/25 05:56: made aware about pt fever of 101.5 at 0540 Original Note: made aware about pt fever of 101.3 at 0540
[2025-07-09 05:56] LABS: Microscopic, Urine URINE MICROSCOPIC (MICROSCOPIC)
[2025-07-09 05:57] LABS: Color,Urine YELLOW (Yellow); Glucose,Urine (UA) Negative (Negative); Ketones,Urine 1+ (Negative); Leukocyte Esterase,Urine Negative (Negative); PH,Urine 6.0 (5.0-8.5); Protein,Urine Negative (Negative); Specific Gravity, Urine 1.025 (1.005-1.030); Urobilinogen,Urine 1.0 EU/dl (0.2)
--- NOTE | 2025-07-09 05:57 | PC.NURSE ---
Pt frida cath'd utilizing sterile technique per protocol to obtain urine sample with MD approval
[2025-07-09 06:04] LABS: Bilirubin,Urine 1+ (Negative); Mucus,Urine Trace /lpf; RBC,Urine Occasional #/hpf (0-3)
== END 2025-07-09 08:17 | disposition home or self-care (01) ==
PROVIDERS: Emergency Provider Emergency Medicine
DX: R50.9 Fever, unspecified (principal); W19.XXXA Unspecified fall, initial encounter
CPT/HCPCS: 81001; 99283; 99285

== ENCOUNTER 2025-07-10 13:16 | Observation (INO) | payer MEDICARE, OTHER, SELFPAY ==
[2025-07-10] VITALS (13 sets, daily range): BP systolic 108–147; BP diastolic 59–91; PULSE 69–85; RESP 12–18; TEMP 36.6–37.2; O2SAT 93–99; BMI 27.3; BMI 33.0
--- OUTSIDE RECORDS SUMMARY | 2025-07-10 13:22 | XMS_ITS | Clinical Summary ---
Author Organization [facility] ([place], [place]) Address [address] [place] [address] Phone Care Team Providers Care Tacker Off Name Role Phone Unavailable Primary Care Provider [...] to complete this topic Insurance [facility] MEDICARE [facility] [place] MEDICAID [place] CARVE OUT [facility] COMMUNITY PLAN [place] MDR [facility] DUAL COMPLETE HMO [place]DS[place]
--- NOTE | 2025-07-10 13:40 | ED_ITS ---
<Statement entered by Leann Mace MD - 07/13/25 22:42> I was consulted by the FRANNIE, and we discussed the complexity of the problems being addressed. I approved the treatment and management plan for this patient's care in the emergency department, thus performing a substantive portion of the medical decision making. Leann Mace MD, JOSH, FACEP Discharge Plan Disposition Patient Disposition: Admitted Prescriptions Prescriptions: No Action quetiapine 100 mg tablet 100 mg PO HS Qty: 30 11RF lisinopril 10 mg tablet 10 mg PO DAILY Qty: 30 11RF divalproex 500 mg tablet,delayed release (DR/EC) 500 mg PO BID Qty: 60 11RF ondansetron 4 mg tablet,disintegrating 4 mg PO DAILY Qty: 30 0RF hydroxyzine pamoate 50 mg capsule 50 mg PO DAILY simvastatin 40 mg tablet 40 mg PO DAILY pantoprazole 20 mg tablet,delayed release (DR/EC) 20 mg PO DAILY azelastine 137 mcg (0.1 %) aerosol,spray 137 mcg INTRANASAL DAILY hydrochlorothiazide 12.5 mg tablet 12.5 mg PO DAILY ondansetron 4 mg tablet,disintegrating 4 mg PO Q8H PRN (Reason: nausea and vomiting) 3 Days Qty: 9 0RF amoxicillin-pot clavulanate 875-125 mg tablet 1 tab PO BID 7 Days Qty: 14 0RF Clinical Impressions Clinical Impression: Diarrhea, Acute renal failure Print Language Print Language: Lao Discharge ED Provider: Leann Mace General Adult HPI General Chief complaint: Weakness Stated complaint: generalized weakness Time Seen by Provider: 07/10/25 13:19 Mode of Arrival: EMS Description of Symptoms (Recalled from ER Triage Doc. by RN): Pt presents by EMS from [facility] for evaluation of generalized weakness. Pt was found sitting on the floor on ems arrival. Pt states he assisted himself down to the ground. Pt denies falling. BGL 115, VSS History of Present Illness HPI narrative: 59-year-old male presents from [facility] for complaint of generalized weakness. He was found sitting on the floor but denies a fall. He says that he was just weak and sat down on the floor. He was seen here earlier today. He got back from the hospital and says he has had diarrhea since. Patient denies any pain he just feels weak. Related Data Home Medications ?Medication ?Instructions ?Recorded ?Confirmed azelastine 137 mcg (0.1 %) nasal 137 mcg intranasal DA BLAIRE 07/19/23 08/05/23 spray hydrochlorothiazide 12.5 mg tablet 12.5 mg PO DAILY 08/05/23 hydroxyzine pamoate 50 mg capsule 50 mg PO DAILY 07/1908/05/23 pantoprazole 20 mg tablet,delayed 20 mg PO DAILY 07/1908/05/23 release simvastatin 40 mg tablet 40 mg PO DAILY 07/19/2307/18 Previous Rx's ?Medication ?Instructions ?Recorded divalproex 500 mg tablet,delayed 500 mg PO BID #60 tab s 02/23/23 release lisinopril 10 mg tablet 10 mg PO DAILY #30 tabs 06/09 quetiapine 100 mg tablet 100 mg PO HS #30 tabs ondansetron 4 mg disintegrating 4 mg PO DAILY #30 tabs 07/13/23 tablet amoxicillin 875 mg-potassium 1 tab PO BID 7 days #14 t abs 12/31/24 clavulanate 125 mg tablet ondansetron 4 mg disintegrating 4 mg PO Q8H PRN nausea and 12/31/24 tablet vomiting 3 days #9 tabs Allergies Allergy/AdvReac Type Severity Reaction Status Date / Time pollen extracts Allergy Other Verified 09/22/24 17:58 [facility] Disclaimer: The information contained in this section may have been updated after the patient was seen, as this information can be updated by other users. Social History Smoking Status: Never smoker alcohol intake: former current occupational status: unemployed Travel in the last 8 weeks?: None Have you lived/traveled outside US in past 30 days?: No Contact w/someone who lives/traveled outside US past 30 days?: No Exposure to someone with infectious disease in past 14 days?: No Do you have a fever (greater than 100.4 F or 38 C)?: No Have you tested positive for COVID-19?: No Exposed to someone with COVID-19 in past 14 days?: No Do you have a sore throat?: No Do you have a cough?: No Do you have any weakness?: No Do you have any diarrhea?: No Are you experiencing any unusual bleeding?: No Do you have any muscle aches/pain?: No Do you have any abdominal pain?: No Are you experiencing loss of taste or smell?: No Other Medical History Have you received the Flu Vaccine for this season: No Have you received the Pneumonia Vaccine: No ROS Obtained: Yes Systems reviewed as appropriate & no additional complaints except as documented Constitutional Constitutional: Reports as per HPI Physical Exam General General appearance: alert and in no apparent distress Head Head exam: normocephalic Eye Eye exam: Present PERRL and EOMI ENT ENT exam: Present mucous membranes moist Neck Neck exam: Present full ROM and trachea midline Respiratory Respiratory exam: Present normal lung sounds bilaterally Cardiovascular Cardiovascular exam: Present regular rate, normal rhythm, normal heart sounds, +S1 and +S2 Abdominal Exam Abdominal exam: Present soft and normal bowel sounds Extremities Exam Extremities exam: Present normal capillary refill Neurological Exam Neurological exam: Present alert Skin Skin exam: Present warm and dry Medical Decision Making Medical Records Screening: Per USPSTF and CDC recommendations, given the prevalence of disease in our region, it is our hospital?s policy to screen for HIV and viral Hepatitis for all patients aged 18 and over and those with ongoing risk factors. Kenan Inquiry Pt receiving controlled substance: No Kenan was queried for this patient: No Vital Signs: 07/10/25 13:09 07/10/25 13:38 07/10/25 14:00 Temperature 98.9 F Temperature Source Temporal Artery Scan Pulse Rate 78 77 Pulse Rate [Right] 85 Respiratory Rate 18 Blood Pressure 114/91 H 121/68 Blood Pressure [Right Arm] 108/59 L Blood Pressure Mean Blood Pressure Mean [Right Arm] 75 Blood Pressure Source [Right Arm] Automatic Cuff Blood Pressure Position [Right Arm] Sitting 02 Sat by Pulse Oximetry 93 L 95 97 Oxygen Delivery Method Room Air Room Air Room Air 07/10/25 14:30 07/10/25 15:00 07/10/25 15:31 Temperature Temperature Source Pulse Rate 72 81 76 Pulse Rate [Right] Respiratory Rate Blood Pressure 122/68 115/71 138/84 Blood Pressure [Right Arm] Blood Pressure Mean 94 Blood Pressure Mean [Right Arm] Blood Pressure Source [Right Arm] Blood Pressure Position [Right Arm] 02 Sat by Pulse Oximetry 97 95 95 Oxygen Delivery Method Room Air Room Air 07/10/25 16:24 07/10/25 16:30 07/10/25 17:00 Temperature Temperature Source Pulse Rate 78 75 71 Pulse Rate [Right] Respiratory Rate Blood Pressure 134/76 127/79 144/81 H Blood Pressure [Right Arm] Blood Pressure Mean 98 Blood Pressure Mean [Right Arm] Blood Pressure Source [Right Arm] Blood Pressure Position [Right Arm] 02 Sat by Pulse Oximetry 97 97 96 Oxygen Delivery Method Room Air Room Air Lab Data Lab Results 07/10/25 13:50: WBC 4.0 L, RBC 4.16 L, Hgb 12.2 L, Hct 38.2 L, MCV 91.8, MCH 29.3, MCHC 31.9, RDW 13.9, Plt Count 128 L, MPV 8.4, Neut % (Auto) 54.9, Lymph % (Auto) 20.2, [place] % (Auto) 22.4 H, Eos % (Auto) 0.5, Baso % (Auto) 1.0, Neut # (Auto) 2.2, Lymph # (Auto) 0.8, [place] # (Auto) 0.9, Eos # (Auto) 0.0, Baso # (Auto) 0.0, Sodium 136, Potassium 3.9, Chloride 99, Carbon Dioxide 30, Anion Gap 10.9, BUN 23 H, Creatinine 1.60 H, Estimated Creat Clear 59, Estimated GFR 45 L, Est GFR ( Amer) 54 L, Glucose 107 H, Calcium 8.3 L, Total Bilirubin 0.4, AST 59, ALT 42, Alkaline Phosphatase 68, Total Protein 6.8, Albumin 3.8, Globulin 3.0, Albumin/Globulin Ratio 1.3 07/10/25 15:34: Stl C. cayetanensis PCR Not detected, Stool Rotavirus (PCR) Not detected, Stl Adenov F 40/41 PCR Not detected, Stool Astrovirus (PCR) Not detected, Stool Campylobacter PCR Not detected, Stl C.difficile Tox PCR Not detected, Stool Cryptosporidium PCR Not detected, Stl E.coli Shiga Tox PCR Not detected, Stool E coli O157 PCR Not detected, Stl Enterotoxigenic E PCR Not detected, Stool EPEC (PCR) Not detected, Stool EAEC (PCR) Not detected, Stl E. histolytica PCR Not detected, Stool Giardia Lamblia PCR Not detected, Stool Salmonella PCR Not detected, Stool Sapovirus (PCR) Not detected, Stl P. shigelloides PCR Not detected, Stl Shigella/EIEC PCR Not detected, St Y.enterocolitica PCR Not detected, Stool Vibrio (PCR) Not detected, Stl Vibrio cholerae PCR Not detected, Stl Norovirus GI/GII PCR Not detected 07/10/25 15:35: Urine Color Yellow, Urine Appearance Clear, Urine pH 5.5, Ur Specific [place] >= 1.030, Urine Protein Negative, Urine Glucose (UA) Negative, Urine Ketones Trace, Urine Blood 3+ A, Urine Nitrate Negative, Urine Bilirubin 1+ A, Urine Urobilinogen 1.0, Ur Leukocyte Esterase Negative, Urine RBC 10-20, Urine WBC 3-5, Ur Squamous Epith Cells 3-5, Urine Bacteria 1+, Hyaline Casts Occ 07/10/25 13:50 07/10/25 13:50 Orders (Tests/Meds): ED MEDICATIONS Generic Name Dose Route Start Last Admin Trade Name Freq PRN Reason Stop Dose Admin Loperamide HCl 2 mg 07/10/25 17:21 Loperamide 2mg Capsule PO 08/09/25 17:20 Q4HP PRN Diarrhea Nicotine 21 mg 07/10/25 17:21 Nicotine 21mg/24hr Patch TD 08/09/25 17:20 DAILYP PRN Nicotine Cravings Discontinued Medications Generic Name Dose Route Start Last Admin Trade Name Freq PRN Reason Stop Dose Admin Sodium Chloride 1,000 mls @ 999 mls/hr 07/10/25 15:37 07/10/25 17:21 Sod Chlor 0.9% 1000ml Bag IV 07/10/25 16:37 Infused .Q1H1M ONE Infusion ORDERS Category Date Time Status CT abdomen pelvis wo con Stat Cat Scan 07/10/25 15:51 Completed XR chest portable Stat Exams 07/10/25 15:51 Completed Basic Metabolic Panel [facility] Lab 07/11/25 06:00 Ordered CBC w/Auto Diff [Complete Blood Count Auto Diff] Stat Lab 07/10/25 13:50 Completed Complete Blood Count Auto Diff [facility]AB Lab 07/11/25 06:00 Ordered Comprehensive Metabolic Panel Stat Lab 07/10/25 13:50 Completed Diarrhea 23 Panel, PCR Stat Lab 07/10/25 15:34 Completed Magnesium [facility] Lab 07/11/25 06:00 Ordered Urinalysis and Microscopic Stat Lab 07/10/25 15:35 Completed Medical Decision Narrative: patient is a 59-year-old male presenting to the emergency department for evaluation of evaluation of weakness. Patient is from [facility] and was here earlier this morning. I did review chart and get rest of history from patient. Patient is hemodynamically stable and nontoxic-appearing upon arrival, afebrile. Differential diagnosis includes viral illness, diarrhea, among others. Workup will be conducted with hematologic labs, specific imaging. Initial workup reviewed by me hematologic labs are remarkable forWhite count was 4, BUN was 23 creatinine was 1.60 GFR was 45. Patient had 3+ blood in his urine we did send a stool panel which was all negative. I talked to Dr. Damon about admission. Patient is agreeable to admission. I did talk to Dr. Vines about admission as well. He except patient to the hospital for an REGGIE. Critical Care Critical Care Time Critical Care Time: No
[2025-07-10 13:58] LABS: Hematocrit 38.2 % (42.0-52.0); Hemoglobin 12.2 g/dL (14.1-18.0); Immature Granulocytes % 1.0 %; Mean Corpuscular HGB Conc 31.9 g/dL (31.8-35.4); Mean Corpuscular Hemoglobin 29.3 pg (27.0-31.2); Mean Corpuscular Volume 91.8 fl (80-94); Nucleated Red Blood Cells % 0 %; Platelet Count 128 K/mm3 (142-424); Red Blood Count 4.16 M/mm3 (4.60-6.20); Red Cell Distribution Width-SD 46.7 fL; White Blood Count 4.0 K/mm3 (4.8-10.8)
[2025-07-10 14:16] LABS: Albumin Level 3.8 g/dl (3.5-5.0); Chloride 99 mmol/L (98-107); Potassium 3.9 mmoL/L (3.5-5.1); Sodium 136 mmol/L (136-145)
[2025-07-10 14:19] LABS: Alanine Aminotransferase 42 U/L (12-78); Albumin/Globulin Ratio 1.3 (1.1-1.8); Alkaline Phosphatase 68 U/L (38-126); Anion Gap 10.9 mEq/L (5-15); Aspartate Amino Transferase 59 U/L (17-59); Bilirubin,Total 0.4 mg/dl (0.2-1.3); Blood Urea Nitrogen 23 mg/dl (9-20); Carbon Dioxide 30 mmol/L (22.0-30.0); Creatinine Clearance Estimated 59 mL/min (50-200); Creatinine,Serum 1.60 mg/dl (0.66-1.25); Estimated Glomerular Filt Rate 45 ml/min (>60); GFR (African American) 54 ML/MIN (>60); Globulin 3.0 g/dL (1.3-3.2); Glucose 107 mg/dl (74-100); Total Protein,Serum 6.8 g/dl (6.3-8.2)
[2025-07-10 14:20] LABS: Calcium 8.3 mg/dl (8.4-10.2)
[2025-07-10 15:35] LABS: Adenovirus F 40/41, stool Not Detected (NotDetected); Clostridium Difficile A/B, PCR Not Detected (NotDetected); Cyclospora Cayetanesis Not Detected (NotDetected); Plesimonas Shigalloides, PCR Not Detected (NotDetected); Salmonella, PCR Not Detected (NotDetected); Shiga-like toxin E coli Not Detected (NotDetected); Shigella Enterovasive E coli Not Detected (NotDetected); Vibrio, PCR Not Detected (NotDetected); Yersinia Entercolitica, PCR Not Detected (NotDetected)
[2025-07-10 15:39] LABS: Microscopic, Urine URINE MICROSCOPIC (MICROSCOPIC)
[2025-07-10 15:40] LABS: Color,Urine YELLOW (Yellow); Glucose,Urine (UA) Negative (Negative); Ketones,Urine TRACE (Negative); Leukocyte Esterase,Urine Negative (Negative); PH,Urine 5.5 (5.0-8.5); Protein,Urine Negative (Negative); Specific Gravity, Urine >= 1.030 (1.005-1.030); Urobilinogen,Urine 1.0 EU/dl (0.2)
[2025-07-10 15:43] LABS: Bilirubin,Urine 1+ (Negative)
[2025-07-10 15:51] LABS: Bacteria,Urine 1+ /lpf; Hyaline Casts,Urine OCC #/lpf (0)
--- NOTE | 2025-07-10 15:51 | CT_ITS ---
FINAL REPORT TECHNIQUE: Noncontrast exam This study was performed with techniques to keep radiation doses as low as reasonably achievable, (ALARA). Individualized dose reduction techniques using automated exposure control or adjustment of mA and/or kV according to the patient''s size were employed. CLINICAL HISTORY: abdominal pain FINDINGS: Abdomen: There is a probable granuloma in the right lower lobe. Liver, spleen, pancreas and adrenal glands have a normal CT appearance in their limited unenhanced state. There is a tiny nonobstructing lower pole right renal stone measuring 2 mm. Numerous tiny gallstones are seen extending to the gallbladder neck. There are no findings to suggest acute cholecystitis. No obvious renal mass is present. No ureteral stones are present. There is no evidence of bowel obstruction. There is an umbilical hernia containing fat measuring 40 mm. Pelvis: No distal ureteral stones are seen. The appendix unremarkable. The bladder and prostate are unremarkable. No fluid collection or adenopathy is seen. IMPRESSION: No acute findings. Extensive tiny gallstones without evidence of acute cholecystitis. Tiny right renal stone. Reviewed, Interpreted and Dictated by Bhavesh Benítez MD Transcribed by Daksha Julian Authenticated and [facility]
--- NOTE | 2025-07-10 15:51 | XR_ITS ---
FINAL REPORT CLINICAL HISTORY: weakness, soa FINDINGS: No acute pulmonary opacity is present. There is no evidence of effusion or pneumothorax. Mediastinum is unremarkable. Heart size is normal. IMPRESSION: No acute abnormality. Reviewed, Interpreted and Dictated by Bhavesh Benítez MD Transcribed by Daksha Julian Authenticated and [facility]
[2025-07-10] MEDS: 0.9 % SODIUM CHLORIDE 1000ML 1,000 ML 999 ML IV (16:15)
--- NOTE | 2025-07-10 17:27 | PC.NURSE ---
call made to house for bed admission
--- NOTE | 2025-07-10 17:45 | PC.NURSE ---
attempt to call report, no answer.
--- NOTE | 2025-07-10 17:49 | PC.NURSE ---
report called to abeba gonzalez on second floor
--- NOTE | 2025-07-10 19:00 | P.HP_ITS ---
<Statement entered by Laz Vines MD - 07/10/25 19:33> Rounded on patient prior to nurse practitioner. Personally examined and interviewed patient. Agree with exam findings and care plan as documented. History of Present Illness *Admission Date: 07/10/25 *Reason for visit:: Weakness *History of present illness: This is a 59-year-old male who has a past medical history sniffer anxiety, GERD, hypertension, hyperlipidemia who presents with a chief complaint of weakness. Due to patient's symptoms, he presented to the emergency room for evaluation. While in the emergency room, patient had an elevation in his creatinine numbers and was generally weak. As a result, patient was evaluated by hospital medicine and management. During patient patient, patient states he presented to the emergency room was seen today. He reports going back to his assisted living facility increase generalized weakness. He was found sitting on the floor but denies any fall. Patient also reports having diarrhea which is chronic for him. He is currently denying any chest pain, lightheadedness, near-syncope, syncope, dizziness, fever, chills, rigors, nausea, vomiting, shortness of breath, dyspnea, or headache. Chest x-ray obtained was negative for any acute cardiopulmonary process. CT scan of the abdomen pelvis shows no acute process but did have some extensive tiny gallstones without any evidence of acute cholecystitis. Additional pertinent labs obtained include a white blood cell count of 4, red blood cell count of 4.16, hemoglobin 12.2, hematocrit 38.2, platelet count of 128, BUN 23, creatinine 1.60, GFR: 7, and calcium 8.3 PFSH [facility] Disclaimer: The information contained in this section may have been updated after the patient was seen, as this information can be updated by other users. Medical History (Updated 07/10/25 @ 19:10 by Abilio Rosas APRN) Anxiety GERD (gastroesophageal reflux disease) HTN (hypertension) HLD (hyperlipidemia) Family History Other No significant family history Social History (Updated 07/10/25 @ 18:34 by Khushi Babb RN) Smoking Status: Never smoker alcohol intake: never current occupational status: unemployed Travel in the last 8 weeks?: None Have you lived/traveled outside [place] in past 30 days?: No Contact w/someone who lives/traveled outside US past 30 days?: No Exposure to someone with infectious disease in past 14 days?: No Do you have a fever (greater than 100.4 F or 38 C)?: No Have you tested positive for COVID-19?: No Exposed to someone with COVID-19 in past 14 days?: No Do you have a sore throat?: No Do you have a cough?: No Do you have any weakness?: No Are you experiencing any nausea/vomitting?: No Do you have any diarrhea?: No Are you experiencing any unusual bleeding?: No Do you have any muscle aches/pain?: No Do you have any abdominal pain?: No Are you experiencing loss of taste or smell?: No Other Medical History Have you received the Flu Vaccine for this season: Yes Have you received the Pneumonia Vaccine: Yes Review of Systems Review of Systems Review of systems:: pertinent systems reviewed and negative unless documented below Constitutional Constitutional: Reports lethargy and Reports weakness Eyes Eyes: Reports system reviewed and no additional complaints, except as documented ENT Ears, Nose, Mouth, and Throat: Reports system reviewed and no additional complaints, except as documented *Cardiovascular Cardiovascular: Reports system reviewed and no additional complaints, except as documented *Respiratory Respiratory: Reports system reviewed and no additional complaints, except as documented *Gastrointestinal Gastrointestinal: Reports diarrhea *Genitourinary Genitourinary: Reports system reviewed and no additional complaints, except as documented *Musculoskeletal Musculoskeletal: Reports system reviewed and no additional complaints, except as documented Integumentary/Breasts Skin/Breast: Reports system reviewed and no additional complaints, except as documented *Neurologic Neurologic: Reports weakness Psychiatric Psychiatric: Reports system reviewed and no additional complaints, except as documented Endocrine Endocrine: Reports system reviewed and no additional complaints, except as documented Hematologic/Lymphatic Hematologic/Lymphatic: Reports system reviewed and no additional complaints, except as documented Allergic/Immunologic Allergic/Immunologic: Reports system reviewed and no additional complaints, except as documented Meds Home Medications and Allergies Home Medications ?Medication ?Instructions ?Recorded ?Confirmed ?Type divalproex 500 mg tablet,delayed 500 mg PO BID #60 tab s 02/23/23 07/10/25 Rx release lisinopril 10 mg tablet 10 mg PO DAILY #30 tabs 06/0907/10/25 Rx quetiapine 100 mg tablet 100 mg PO HS #30 tabs 07/10/25 Rx hydrochlorothiazide 12.5 mg tablet 12.5 mg PO DAILY 07/10/25 History hydroxyzine pamoate 50 mg capsule 50 mg PO Q6H PRN Anx iety 07/19/23 07/10/25 History pantoprazole 20 mg tablet,delayed 20 mg PO DAILY 07/1907/10/25 History release simvastatin 40 mg tablet 40 mg PO HS 07/19/23 5 History ondansetron 4 mg disintegrating 4 mg PO Q8H PRN nausea and 12/31/24 07/10/25 Rx tablet vomiting 3 days #9 tabs albuterol sulfate 90 mcg/actuation 1 puff inhalation Q 6H PRN soa 07/10/25 07/10/25 History aerosol inhaler (Ventolin HFA) New Prescriptions to Start Prescriptions: Allergies Allergy/AdvReac Type Severity Reaction Status Date / Time pollen extracts Allergy Other Verified 09/22/24 17:58 Exam Data for Last 24 hours Vital signs and Labs for Last 24 Hours: Temp Pulse Resp BP Pulse Ox O2 Del Method 98.6 F 69 13 133/82 97 Room Air 07/10/25 18:55 07/10/25 18:55 07/10/25 18:55 07/10/25 18:55 07/10/25 18:20 07/10/25 18:44 Laboratory Results - last 24 hr 07/10/25 13:50: WBC 4.0 L, RBC 4.16 L, Hgb 12.2 L, Hct 38.2 L, MCV 91.8, MCH 29.3, MCHC 31.9, RDW 13.9, Plt Count 128 L, MPV 8.4, Neut % (Auto) 54.9, Lymph % (Auto) 20.2, [place] % (Auto) 22.4 H, Eos % (Auto) 0.5, Baso % (Auto) 1.0, Neut # (Auto) 2.2, Lymph # (Auto) 0.8, [place] # (Auto) 0.9, Eos # (Auto) 0.0, Baso # (Auto) 0.0, Sodium 136, Potassium 3.9, Chloride 99, Carbon Dioxide 30, Anion Gap 10.9, BUN 23 H, Creatinine 1.60 H, Estimated Creat Clear 59, Estimated GFR 45 L, Est GFR ( Amer) 54 L, Glucose 107 H, Calcium 8.3 L, Total Bilirubin 0.4, AST 59, ALT 42, Alkaline Phosphatase 68, Total Protein 6.8, Albumin 3.8, Globulin 3.0, Albumin/Globulin Ratio 1.3 07/10/25 15:34: Stl C. cayetanensis PCR Not detected, Stool Rotavirus (PCR) Not detected, Stl Adenov F 40/41 PCR Not detected, Stool Astrovirus (PCR) Not d etected, Stool Campylobacter PCR Not detected, Stl C.difficile Tox PCR Not detected, Stool Cryptosporidium PCR Not detected, Stl E.coli Shiga Tox PCR Not detected, Stool E coli O157 PCR Not detected, Stl Enterotoxigenic E PCR Not detected, Stool EPEC (PCR) Not detected, Stool EAEC (PCR) Not detected, Stl E. histolytica PCR Not detected, Stool Giardia Lamblia PCR Not detected, Stool Salmonella PCR Not detected, Stool Sapovirus (PCR) Not detected, Stl P. shigelloides PCR Not detected, Stl Shigella/EIEC PCR Not detected, St Y.enterocolitica PCR Not detected, Stool Vibrio (PCR) Not detected, Stl Vibrio cholerae PCR Not detected, Stl Norovirus GI/GII PCR Not detected 07/10/25 15:35: Urine Color Yellow, Urine Appearance Clear, Urine pH 5.5, Ur Specific [place] >= 1.030, Urine Protein Negative, Urine Glucose (UA) Negative, Urine Ketones Trace, Urine Blood 3+ A, Urine Nitrate Negative, Urine Bilirubin 1+ A, Urine Urobilinogen 1.0, Ur Leukocyte Esterase Negative, Urine RBC 10-20, Urine WBC 3-5, Ur Squamous Epith Cells 3-5, Urine Bacteria 1+, Hyaline Casts Occ I & O for Last 24 hours: Intake & Output 07/07/25 07/08/25 07/09/25 07/10/25 23:59 23:59 23:59 23:59 Intake Total 1000 / 1000 Balance 1000 / 1000 Weight 98.611 kg Constitutional Constitutional: no acute distress, chronically ill appearing and cooperative *Routine HEENT Exam Head: Present normocephalic and atraumatic Eye: Present EOMI and PERRL ENT: Present mucous membranes moist *Routine Neck Exam Neck: Present supple, full ROM and trachea midline *Routine Respiratory Exam Respiratory: Present CTA bilaterally, normal respiratory effort, able to speak in complete sentences and symmetric chest movement *Routine Cardiovascular Exam Cardiovascular: Present RRR, Normal S1 and Normal S2 *Routine Abdominal Exam Abdominal: Present soft and normoactive bowel sounds *Routine Rectal Exam Rectal:: deferred *Routine Genitalia Exam Genitalia:: deferred *Routine Extremities Exam Extremities: Present full ROM, pulses intact and normal capillary refill Routine Back/Spine/Pelvis Exam Back/Spine: Present full ROM *Routine Skin Exam Skin: Present intact, dry and warm *Routine Neurological Exam Neurological: Present alert, oriented X3, CN II-XII intact, moving all extremities and normal speech Routine Psychiatric Exam Psychiatric: Present normal affect, normal thought process, cooperative, good insight and good judgment H&P: Result Impressions 59-year-old male presents with a chief complaint weakness was found to have kidney injury and unexplained thrombocytosis Assessment and Plan *Assessment and plan (1) Acute renal failure: Status: Acute Qualifiers: Acute renal failure type: unspecified Qualified Code(s): N17.9 - Acute kidney failure, unspecified Category: Medical Code(s): N17.9 - Acute kidney failure, unspecified (2) Leukopenia: Status: Acute Qualifiers: Leukopenia type: other Qualified Code(s): D72.818 - Other decreased white blood cell count Category: Medical Code(s): D72.819 - Decreased white blood cell count, unspecified (3) Thrombocytopenia: Status: Acute Category: Medical Code(s): D69.6 - Thrombocytopenia, unspecified (4) Generalized weakness: Status: Acute Category: Medical Code(s): R53.1 - Weakness (5) Dehydration: Status: Acute Category: Medical Code(s): E86.0 - Dehydration Plan Assessment Acute kidney injury Dehydration -it is not clear what is driving patient's acute kidney injury; however seems to be prerenal; review of patient's medication shows he is prescribed LAKEISHA inhibitors hydrochlorothiazide - Will hold these medications in the setting of acute-will avoid nephrotoxic drugs - If patient's renal impairment does not improve, we will obtain renal ultrasound with urine studies - He was given 1 L of IV fluid while in emergency room will continue gentle IV - Normal saline at 100 mL an hour Mild pancytopenia (normocytic normochromic anemia, leukopenia, thrombocytopenia) - Patient has no neutropenia - Patient indices are within normal limits - Concerns for viral illness - Patient has no active bleeding right now - Respiratory respiratory illnesses - Will consider peripheral smear and anemia profile - Studies obtained in the emergency room were negative for any microorganisms and stool Generalized weakness - Physical therapy - Place patient on fall precautions Chronic diarrhea - 2 mg loperamide p.o. every 4 hours as needed diarrhea Cholelithiasis - No CT evidence consistent with cholecystitis - Patient is denying pain - This was seen on imaging Plan: Admit patient to the MedSurg unit Cardiac diet CBC/BMP daily 40 mg Lovenox subcu daily for DVT prophylax 5 mg [place] p.o. every 4 hours for MRI pain 2 mg loperamide every 4 hours as needed Full code 4 mg Zofran IV push every 8 hours. Nausea vomit 21 mg nicotine patch daily I have discussed this case with attending physician Dr. Vines and I look forward to more input
[2025-07-10] MEDS: 0.9 % SODIUM CHLORIDE 1000ML 1,000 ML 100 ML IV (20:49)
[2025-07-10] MEDS: DIVALPROEX 500MG (Delayed-Release) TABLET 500 MG PO (20:49)
[2025-07-10] MEDS: PRAVASTATIN 40MG TAB 80 MG PO (20:49)
[2025-07-10] MEDS: QUETIAPINE 100MG TABLET 100 MG PO (20:49)
[2025-07-10 21:03] LABS: Coronavirus 19, PCR Not Detected (NotDetected); Influenza A, PCR Not Detected (NotDetected); Influenza B, PCR Not Detected (NotDetected)
[2025-07-11] VITALS: BP 124/60; PULSE 82; RESP 14; TEMP 36.6; O2SAT 97
--- NOTE | 2025-07-11 03:11 | PC.NURSE ---
Pt has remained alert and oriented and has tolerated room air. He has remained weak this shift requiring x1 assist to get up to the bedside commode. NS has remained infusing at 100 ml/hr. No complaints at this time, bed alarm in place.
[2025-07-11 04:00] VITALS: BP 122/71; PULSE 71; RESP 12; TEMP 37; O2SAT 97; BMI 42.3
[2025-07-11] MEDS: 0.9 % SODIUM CHLORIDE 1000ML 1,000 ML 100 ML IV (06:15)
[2025-07-11 06:56] LABS: Hematocrit 40.0 % (42.0-52.0); Hemoglobin 12.5 g/dL (14.1-18.0); Immature Granulocytes % 0.7 %; Mean Corpuscular HGB Conc 31.3 g/dL (31.8-35.4); Mean Corpuscular Hemoglobin 29.1 pg (27.0-31.2); Mean Corpuscular Volume 93.2 fl (80-94); Nucleated Red Blood Cells % 0 %; Platelet Count 117 K/mm3 (142-424); Red Blood Count 4.29 M/mm3 (4.60-6.20); Red Cell Distribution Width-SD 47.3 fL; White Blood Count 4.2 K/mm3 (4.8-10.8)
[2025-07-11 07:02] LABS: Chloride 102 mmol/L (98-107); Potassium 3.6 mmoL/L (3.5-5.1); Sodium 137 mmol/L (136-145)
[2025-07-11 07:04] LABS: Blood Urea Nitrogen 14 mg/dl (9-20); Creatinine Clearance Estimated 99 mL/min (50-200); Creatinine,Serum 0.80 mg/dl (0.66-1.25); Estimated Glomerular Filt Rate 100 ml/min (>60); GFR (African American) 121 ML/MIN (>60)
[2025-07-11 07:05] LABS: Anion Gap 9.6 mEq/L (5-15); Calcium 7.9 mg/dl (8.4-10.2); Carbon Dioxide 29 mmol/L (22.0-30.0); Glucose 101 mg/dl (74-100); Magnesium 2.0 mg/dl (1.6-2.3)
[2025-07-11 07:34] VITALS: BP 140/72; PULSE 77; RESP 16; TEMP 36.4; O2SAT 98
[2025-07-11] MEDS: PANTOPRAZOLE 40MG TABLET 40 MG PO (09:30)
[2025-07-11] MEDS: DIVALPROEX 500MG (Delayed-Release) TABLET 500 MG PO ×2 (09:30→20:06)
--- NOTE | 2025-07-11 10:56 | HMH.PTEV ---
Physical Therapy Evaluation Rehab PT IP Evaluation Start: 07/10/25 18:35 Freq: ONCE Status: Active Protocol: Document 07/11/25 10:50 LUPE (Rec: 07/11/25 10:56 LUPE [id number]) Subjective/History History History Per H&P: This is a 59-year-old male who has a past medical history sniffer anxiety, GERD, hypertension, hyperlipidemia who presents with a chief complaint of weakness. Due to patient's symptoms, he presented to the emergency room for evaluation. While in the emergency room, patient had an elevation in his creatinine numbers and was generally weak. As a result , patient was evaluated by hospital medicine and management. During patient patient, patient states he presented to the emergency room was seen today. He reports going back to his assisted living facility increase generalized weakness. He was found sitting on the floor but denies any fall. Patient also reports having diarrhea which is chronic for him. He is currently denying any chest pain, lightheadedness, near-syncope, syncope, dizziness, fever, chills, rigors, nausea, vomiting, shortness of breath, dyspnea, or headache. Chest x-ray obtained was negative for any acute cardiopulmonary process. CT scan of the abdomen pelvis shows no acute process but did have some extensive tiny gallstones without any evidence of acute cholecystitis. Additional pertinent labs obtained include a white blood cell count of 4, red blood cell count of 4.16, hemoglobin 12.2, hematocrit 38.2, platelet count of 128, BUN 23, creatinine 1.60, GFR: 7, and calcium 8.3 Subjective Subjective Pt reports he normally ambulates with intermittent RW use. Pt reports hx of multiple falls in past year. Pt reports all falls occurred d/t LE buckling when not using RW. Pt reports recent functional decline. [facility] How much help from another person do you currently need... Turning from your A little back to your side while in a flat bed without using bedrails? Moving from lying on A little back to sitting on the side of a flat bed without using bedrails? Moving to and from a A little bed to a chair ( including a wheelchair)? Standing up from a A little chair using your arms? (e.g., wheelchair, bedside chair) Walking in hospital A little room? Climbing 3-5 steps A lot with a railing? Mobility Score 17 Mobility Level [facility] Mobility 5 Stand (1 or more minutes) Mobility Calculator Rehab PT IP Eval Objective Appearance Patient Behavior Appropriate,Cooperative Patient Orientation Person,Situation Difficulty following none instructions Speech Pattern Clear Ambulation Patient Able to Yes Ambulate Ambulation Observation IP General Gait Wide Based Gait Pattern Observation Ambulation Distance 3 (feet) Ambulation Assistive Rolling Walker Device Ambulation Ability Minimal x 1 (25% assist) Balance Ability to Arise Able, uses arms to help Sitting Balance Steady, safe Standing Balance Unsteady Dynamic Sitting Good Balance Ability Dynamic Standing Poor Balance Ability Transfers Bed Transfer Ability Minimal x 1 (25% assist) Sit to Stand Bed Minimal x 1 (25% assist) Transfer Ability Sit to Stand Chair Minimal x 1 (25% assist) Transfer Ability Rehab PT IP prob,goals,plan Problems Date of Evaluation: 07/11/25 PT IP Problems Bed Mobility,Transfers,Gait,Balance,Self care,Safety Rehab Potential Rehab Potential Good Plan PT Intervention Plan Bed Mobility,Transfers,Gait,Balance,Self care,Safety, Therapeutic Exercise Other Intervention 1-2 times Plan PT Plan Frequency Daily Duration LOS Discharge Goals Bed Transfer Ability Supervision/Stand by Sit to Stand Chair Supervision/Stand by Transfer Ability Ambulation Assistive Rolling Walker Device Ambulation Distance 20 (feet) Discharge Plan PT Discharge Plan Pt most appropriate for skilled inpatient rehabilitation placement at this time d/t hx of falls and current mobility level. Pt required min A and demo'd being unsteady with static standing when using RW. Pt demo'd BLE buckling with static standing. Pt would benefit from skilled acute care PT while at [facility] to address deficits. Eval Complexity Eval Charge Codes 89173 - Moderate Complexity PHYSICIAN CERTIFICATION: I certify the specified therapy services for Inocente Vaughan are required, authorized, and reviewed every 30 days.
--- NOTE | 2025-07-11 11:06 | HMH.PHAINT1 ---
Pharmacy Intervention Comments: MED LIST COMPARED TO FILL HISTORY.
--- NOTE | 2025-07-11 12:53 | P.PN_ITS ---
Subjective *Date: 07/11/25 *Time: 12:53 Interval history: Patient feeling somewhat better today. Kidney function normalized on labs. Tolerating p.o. intake. Worked with therapy, still quite weak. Not ambulating very well without walker. Not stable discharge back to personal-usp today. Afebrile. Medical Exam Vital signs and Labs for Last 24 Hours: Vital Signs Temp Pulse Pulse Resp BP BP Pulse Ox 07/11/25 11:00 07/11/25 09:00 07/11/25 08:00 07/11/25 07:34 97.6 F 77 16 140/72 98 07/11/25 06:41 07/11/25 05:00 07/11/25 04:00 98.6 F 71 12 122/71 97 07/11/25 03:00 07/11/25 01:00 07/11/25 00:00 97.8 F 82 14 124/60 97 07/10/25 23:00 07/10/25 21:00 07/10/25 20:00 07/10/25 20:00 97.8 F 74 12 129/64 97 07/10/25 18:55 98.6 F 69 13 133/82 07/10/25 18:44 07/10/25 18:20 98.6 F 69 18 147/81 H 97 07/10/25 17:44 07/10/25 17:30 69 133/82 99 07/10/25 17:00 71 144/81 H 96 07/10/25 16:30 75 127/79 97 07/10/25 16:24 78 134/76 97 07/10/25 15:31 76 138/84 95 07/10/25 15:00 81 115/71 95 07/10/25 14:30 72 122/68 97 07/10/25 14:00 77 121/68 97 07/10/25 13:38 78 114/91 H 95 07/10/25 13:09 98.9 F 85 18 108/59 L 93 L O2 Del Method 07/11/25 11:00 Room Air 07/11/25 09:00 Room Air 07/11/25 08:00 Room Air 07/11/25 07:34 Room Air 07/11/25 06:41 Room Air 07/11/25 05:00 Room Air 07/11/25 04:00 Room Air 07/11/25 03:00 Room Air 07/11/25 01:00 Room Air 07/11/25 00:00 Room Air 07/10/25 23:00 Room Air 07/10/25 21:00 Room Air 07/10/25 20:00 Room Air 07/10/25 20:00 Room Air 07/10/25 18:55 07/10/25 18:44 Room Air 07/10/25 18:20 Room Air 07/10/25 17:44 Room Air 07/10/25 17:30 Room Air 07/10/25 17:00 07/10/25 16:30 Room Air 07/10/25 16:24 Room Air 07/10/25 15:31 07/10/25 15:00 Room Air 07/10/25 14:30 Room Air 07/10/25 14:00 Room Air 07/10/25 13:38 Room Air 07/10/25 13:09 Room Air Intake and Output 07/10/25 07/11/25 07/11/25 23:59 07:59 15:59 Intake Total 1000 / 1150 1093.333 / 2001.666 908.333 / 2001.666 Output Total 100 / 100 550 / 650 100 / 650 Balance 900 / 1050 543.333 / 1351.666 808.333 / 1351.666 Intake: Intake, Oral Amount 150 / 550 400 / 550 Intake, Total IV Amount 1000 / 1000 943.333 / 1451.666 508.333 / 1451.666 0.9 % Sodium Chloride 1000ML 1, 943.333 / 1451.666 508.333 / 1451.666 000 ml @ 100 mls/hr IV .Q10H [facility] Rx#:[id number] 0.9 % Sodium Chloride 1000ML 1, 1000 / 1000 000 ml @ 999 mls/hr IV .Q1H1M ONE Rx#:[id number] Output: Output, Urine Amount 100 / 100 550 / 650 100 / 650 Other: Number of Unmeasured Voids 1 1 Number of Bowel Movements 1 Weight 98.611 kg 126.598 kg Patient Weight 07/11/25 23:59 Weight 126.598 kg Laboratory Results - last 24 hr 07/10/25 13:50: WBC 4.0 L, RBC 4.16 L, Hgb 12.2 L, Hct 38.2 L, MCV 91.8, MCH 29.3, MCHC 31.9, RDW 13.9, Plt Count 128 L, MPV 8.4, Neut % (Auto) 54.9, Lymph % (Auto) 20.2, Prentiss % (Auto) 22.4 H, Eos % (Auto) 0.5, Baso % (Auto) 1.0, Neut # (Auto) 2.2, Lymph # (Auto) 0.8, Prentiss # (Auto) 0.9, Eos # (Auto) 0.0, Baso # (Auto) 0.0, Sodium 136, Potassium 3.9, Chloride 99, Carbon Dioxide 30, Anion Gap 10.9, BUN 23 H, Creatinine 1.60 H, Estimated Creat Clear 59, Estimated GFR 45 L, Est GFR ( Amer) 54 L, Glucose 107 H, Calcium 8.3 L, Total Bilirubin 0.4, AST 59, ALT 42, Alkaline Phosphatase 68, Total Protein 6.8, Albumin 3.8, Globulin 3.0, Albumin/Globulin Ratio 1.3 07/10/25 15:34: Stl C. cayetanensis PCR Not detected, Stool Rotavirus (PCR) Not detected, Stl Adenov F 40/41 PCR Not detected, Stool Astrovirus (PCR) Not detected, Stool Campylobacter PCR Not detected, Stl C.difficile Tox PCR Not detected, Stool Cryptosporidium PCR Not detected, Stl E.coli Shiga Tox PCR Not detected, Stool E coli O157 PCR Not detected, Stl Enterotoxigenic E PCR Not detected, Stool EPEC (PCR) Not detected, Stool EAEC (PCR) Not detected, Stl E. histolytica PCR Not detected, Stool Giardia Lamblia PCR Not detected, Stool Salmonella PCR Not detected, Stool Sapovirus (PCR) Not detected, Stl P. shigelloides PCR Not detected, Stl Shigella/EIEC PCR Not detected, St Y.enterocolitica PCR Not detected, Stool Vibrio (PCR) Not detected, Stl Vibrio cholerae PCR Not detected, Stl Norovirus GI/GII PCR Not detected 07/10/25 15:35: Urine Color Yellow, Urine Appearance Clear, Urine pH 5.5, Ur Specific [place] >= 1.030, Urine Protein Negative, Urine Glucose (UA) Negative, Urine Ketones Trace, Urine Blood 3+ A, Urine Nitrate Negative, Urine Bilirubin 1+ A, Urine Urobilinogen 1.0, Ur Leukocyte Esterase Negative, Urine RBC 10-20, Urine WBC 3-5, Ur Squamous Epith Cells 3-5, Urine Bacteria 1+, Hyaline Casts Occ 07/10/25 20:57: SARS-CoV-2 (PCR) Not detected, Influenza Type A (PCR) Not detected, Influenza Type B (PCR) Not detected, RSV (PCR) Not detected, Rhinovirus (PCR) Not detected 07/11/25 06:29: WBC 4.2 L, RBC 4.29 L, Hgb 12.5 L, Hct 40.0 L, MCV 93.2, MCH 29.1, MCHC 31.3 L, RDW 13.9, Plt Count 117 L, MPV 8.4, Neut % (Auto) 61.4, Lymph % (Auto) 25.4, Prentiss % (Auto) 11.5 H, Eos % (Auto) 0.5, Baso % (Auto) 0.5, Neut # (Auto) 2.6, Lymph # (Auto) 1.1, Prentiss # (Auto) 0.5, Eos # (Auto) 0.0, Baso # (Auto) 0.0, Sodium 137, Potassium 3.6, Chloride 102, Carbon Dioxide 29, Anion Gap 9.6, BUN 14 D, Creatinine 0.80 D, Estimated Creat Clear 99, Estimated GFR 100, Est GFR ( Amer) 121 D, Glucose 101 H, Calcium 7.9 L, Magnesium 2.0 I & O for Labs for Last 24 Hours: Intake & Output 07/08/25 07/09/25 07/10/25 07/11/25 23:59 23:59 23:59 23:59 Intake Total 1000 / 1150 2001.666 / 2000.666 Output Total 100 / 100 650 / 650 Balance 900 / 1050 1351.666 / 1351.666 Weight 98.611 kg 126.598 kg Constitutional: Present no acute distress, average body habitus, chronically ill appearing and cooperative Head: Present atraumatic Comment:: Seborrheic scale on face Respiratory: Present normal respiratory effort; Absent rhonchi, wheezes or crackles Cardiac: Present Reg Rate and Rhythm GI: Present soft, distention and normal bowel sounds; Absent tenderness Extremities: Present normal inspection and full ROM Skin: Present intact; Absent erythema Neuro: Present Grossly Intact, alert, awake, oriented x 3 and moves all extremities Assessment and Plan *Assessment and plan (1) Acute renal failure: Status: Acute Qualifiers: Acute renal failure type: unspecified Qualified Code(s): N17.9 - Acute kidney failure, unspecified Category: Medical Code(s): N17.9 - Acute kidney failure, unspecified (2) Leukopenia: Status: Acute Qualifiers: Leukopenia type: other Qualified Code(s): D72.818 - Other decreased white blood cell count Category: Medical Code(s): D72.819 - Decreased white blood cell count, unspecified (3) Thrombocytopenia: Status: Acute Category: Medical Code(s): D69.6 - Thrombocytopenia, unspecified (4) Generalized weakness: Status: Acute Category: Medical Code(s): R53.1 - Weakness (5) Dehydration: Status: Acute Category: Medical Code(s): E86.0 - Dehydration Plan 59-year-old male who presented from [facility] [address] due to weakness and diarrhea. Found to have REGGIE. Admitted for fluid resuscitation and further management. Labs this morning showing improvement. Therapy working with patient. Continues to require inpatient management due to his weakness and inability to discharge back to his personal care setting. Problems addressed as follows: Acute kidney injury Dehydration - Findings most consistent with prerenal. Creatinine improved. BUN 14, creatinine 0.8. Down from 1.6 on admission - Discontinue IV fluids. Tolerating p.o. intake. Caution with nephrotoxic medications - Repeat CBC, CMP, magnesium ordered for the morning Mild pancytopenia (normocytic normochromic anemia, leukopenia, thrombocytopenia) - Patient has no neutropenia, indices are within normal limits - Concerns for viral illness, negative mini respiratory panel for COVID and flu, RSV and rhino - Patient has no active bleeding right now - Will consider peripheral smear and anemia profile - White count 4.2, hemoglobin 12.7. Platelets 117. Generalized weakness - Physical therapy evaluated, not independently mobile at this time. Continue to work with patient during admission. Reevaluate need for placement in the next day or 2. - Continue fall precautions Chronic diarrhea: 2 mg loperamide p.o. every 4 hours as needed diarrhea Cholelithiasis - No CT evidence consistent with cholecystitis - Patient is denying pain, incidental finding on imaging Continue Depakote 500 mg twice daily and Seroquel 100 mg nightly for mood disorder Full code Regular diet Continue Lovenox 40 mg subcu daily
[2025-07-11 12:56] VITALS: BMI 33.6
[2025-07-11 15:47] VITALS: BP 125/73; PULSE 66; RESP 16; TEMP 36.9; O2SAT 96
--- NOTE | 2025-07-11 17:37 | PC.NURSE ---
Pt has remained alert and oriented and has tolerated room air. requiring x1 assist to get up. PT worked with pt this shift. maintenance fluids dc this shift. No complaints at this time, bed alarm in place.
[2025-07-11 19:35] VITALS: BP 138/76; PULSE 72; RESP 18; TEMP 37; O2SAT 98
[2025-07-11] MEDS: QUETIAPINE 100MG TABLET 100 MG PO (20:06)
[2025-07-11] MEDS: PRAVASTATIN 40MG TAB 80 MG PO (20:06)
[2025-07-12 04:00] VITALS: BP 126/76; PULSE 68; RESP 18; TEMP 37.1; O2SAT 91; BMI 33.0
[2025-07-12 08:00] VITALS: BP 132/66; PULSE 75; RESP 20; TEMP 36.6; O2SAT 100
[2025-07-12] MEDS: DIVALPROEX 500MG (Delayed-Release) TABLET 500 MG PO (08:10)
[2025-07-12] MEDS: PANTOPRAZOLE 40MG TABLET 40 MG PO (08:10)
--- NOTE | 2025-07-12 10:41 | EXP.DC.SUM ---
General Admission date:: 07/10/25 Discharge date: 07/12/25 HPI HPI HPI: This is a 59-year-old male who has a past medical history sniffer anxiety, GERD, hypertension, hyperlipidemia who presents with a chief complaint of weakness. Due to patient's symptoms, he presented to the emergency room for evaluation. While in the emergency room, patient had an elevation in his creatinine numbers and was generally weak. As a result, patient was evaluated by hospital medicine and management. During patient patient, patient states he presented to the emergency room was seen today. He reports going back to his assisted living facility increase generalized weakness. He was found sitting on the floor but denies any fall. Patient also reports having diarrhea which is chronic for him. He is currently denying any chest pain, lightheadedness, near-syncope, syncope, dizziness, fever, chills, rigors, nausea, vomiting, shortness of breath, dyspnea, or headache. Chest x-ray obtained was negative for any acute cardiopulmonary process. CT scan of the abdomen pelvis shows no acute process but did have some extensive tiny gallstones without any evidence of acute cholecystitis. Additional pertinent labs obtained include a white blood cell count of 4, red blood cell count of 4.16, hemoglobin 12.2, hematocrit 38.2, platelet count of 128, BUN 23, creatinine 1.60, GFR: 7, and calcium 8.3 Hospital Course Hospital Course Hospital Course: The patient was admitted to the medical/surgical bed with routine laboratory evaluation and IV fluid resuscitation. Follow-up renal function panel identified normal electrolytes with normal creatinine. His discharge creatinine was 0.8 which is his baseline. He identified improvement and requested to be discharged home. On day of discharge I am accompanied by his nurse Sharon for discharge planning. We discussed his antihypertensive medications including his thiazide diuretic therapy. He understands to hold his thiazide diuretic therapy until follow-up with his PCP for repeat renal function evaluation and further recommendations. We discussed his Hematology panel including his platelet count. He understands to avoid [id number] NSAIDs and follow-up with manufacturer agent as recommended for repeat evaluation. We discussed his inpatient Lovenox for DVT prophylaxis. Exam Data for Last 24 hours Vital signs and Labs for Last 24 Hours: Temp Pulse Resp BP Pulse Ox O2 Del Method 97.8 F 75 20 132/66 100 Room Air 07/12/25 08:00 07/12/25 08:00 07/12/25 08:00 07/12/25 08:00 07/12/25 08:00 07/12/25 08:50 I & O for Last 24 hours: Intake & Output 07/09/25 07/10/25 07/11/25 07/12/25 23:59 23:59 23:59 23:59 Intake Total 1000 / 1150 3041.666 / 3221.666 780 / 780 Output Total 100 / 100 650 / 650 Balance 900 / 1050 2391.666 / 2571.666 780 / 780 Weight 98.611 kg 100.652 kg 98.997 kg Constitutional Constitutional: no acute distress, obese, chronically ill appearing and cooperative *Routine Respiratory Exam Respiratory: Present rhonchi, normal respiratory effort and symmetric chest movement *Routine Cardiovascular Exam Cardiovascular: Present RRR *Routine Neurological Exam Neurological: Present alert, oriented X3, moving all extremities, vision grossly intact, hearing grossly intact and normal speech; Absent sensory deficit or motor deficit Routine Psychiatric Exam Psychiatric: Present cooperative DS: Diagnosis Discharge Diagnosis (1) Acute renal failure: Status: Acute Code(s): N17.9 - Acute kidney failure, unspecified Qualifiers: Acute renal failure type: unspecified Qualified Code(s): N17.9 - Acute kidney failure, unspecified (2) Leukopenia: Status: Acute Code(s): D72.819 - Decreased white blood cell count, unspecified Qualifiers: Leukopenia type: other Qualified Code(s): D72.818 - Other decreased white blood cell count (3) Thrombocytopenia: Status: Acute Code(s): D69.6 - Thrombocytopenia, unspecified (4) Generalized weakness: Status: Acute Code(s): R53.1 - Weakness (5) Dehydration: Status: Acute Code(s): E86.0 - Dehydration Meds Home Medications and Allergies Home Medications ?Medication ?Instructions ?Recorded ?Confirmed ?Type divalproex 500 mg tablet,delayed 500 mg PO BID #60 tabs 02/23/23 07/10/25 Rx release lisinopril 10 mg tablet 10 mg PO DAILY #30 tabs 02/23/23 07/10/25 Rx quetiapine 100 mg tablet 100 mg PO HS #30 tabs 02/23/23 07/10/25 Rx hydrochlorothiazide 12.5 mg tablet 12.5 mg PO DAILY 07/19/23 07/10/25 History Held on 07/12/25. Instructions: Resume on 07/22/25. Please hold your medication until follow-up with your PCP to discuss your blood pressure and renal function re-evaluation. hydroxyzine pamoate 50 mg capsule 50 mg PO Q6HP PRN Anxiety 07/19/23 07/11/25 History pantoprazole 20 mg tablet,delayed 20 mg PO DAILY 07/19/23 07/10/25 History release simvastatin 40 mg tablet 40 mg PO HS 07/19/23 07/10/25 History albuterol sulfate 90 mcg/actuation 1 puff inhalation Q6H PRN soa 07/10/25 07/10/25 History aerosol inhaler (Ventolin HFA) cholecalciferol (vitamin D3) 1,250 50,000 unit PO FR 07/11/25 07/11/25 History mcg (50,000 unit) capsule famotidine 20 mg tablet 20 mg PO BID 07/11/25 07/11/25 History multivitamin with minerals-folic 1 tab PO DAILY 07/11/25 07/11/25 History acid 200 mcg chewable tablet (Vitajoy Adult Multi) ondansetron 4 mg disintegrating 4 mg PO DAILYP PRN NAUSEA/VOMITING 07/11/25 07/11/25 History tablet New Prescriptions to Start Prescriptions: Allergies Allergy/AdvReac Type Severity Reaction Status Date / Time pollen extracts Allergy Other Verified 09/22/24 17:58 Discharge Plan Disposition Patient Disposition: Home, Self-Care Condition: Fair Follow up Plan Follow up with: Andrei Pacheco MD [Staff Physician, Oncology] - 2 weeks Dave Deras MD [Staff Physician, Family Practice] - 1 week Prescriptions/Medication Reconciliation: Continued quetiapine 100 mg tablet 100 mg PO HS Qty: 30 11RF lisinopril 10 mg tablet 10 mg PO DAILY Qty: 30 11RF divalproex 500 mg tablet,delayed release (DR/EC) 500 mg PO BID Qty: 60 11RF hydroxyzine pamoate 50 mg capsule 50 mg PO Q6HP PRN (Reason: Anxiety) simvastatin 40 mg tablet 40 mg PO HS pantoprazole 20 mg tablet,delayed release (DR/EC) 20 mg PO DAILY albuterol sulfate [Ventolin HFA] 90 mcg/actuation HFA aerosol inhaler 1 puff INHALATION Q6H PRN (Reason: soa) ondansetron 4 mg Tablet,Disintegrating 4 mg PO DAILYP PRN (Reason: NAUSEA/VOMITING) famotidine 20 mg tablet 20 mg PO BID cholecalciferol (vitamin D3) 1,250 mcg (50,000 unit) capsule 50,000 unit PO FR multivit with min-folic acid [Vitajoy Adult Multi] 200 mcg Tablet,Chewable 1 tab PO DAILY Held hydrochlorothiazide 12.5 mg tablet 12.5 mg PO DAILY Hold Instructions: Resume on 07/22/25. Please hold your medication until follow-up with your PCP to discuss your blood pressure and renal function re-evaluation. Problem Reconciliation Problems Reviewed?: Yes Patient Discharge Instructions ACTIVITY: Continue current activity DIET: low salt diet and cardiac Patient Instructions: DI for Kidney Failure Print Language: Malay Providers Primary Care Provider: Tere Kidd Admit Provider: Laz Vines Attending Provider: Laz Vines
--- NOTE | 2025-07-13 11:11 | SW/DCPLANNER ---
Patient is a resident of [facility]. Patient's caregiver stated that he is good. Patient's caregiver stated that they are aware of his upcoming appointments. Patient's caregiver stated that they were able to get his new medicine. Patient's caregiver stated that they dont have any concerns or questions at this time. Florina STOKES Credentialer
== END 2025-07-12 11:05 | disposition home or self-care (01) ==
LOC: ER 17:22 → 2ND 17:40
PROVIDERS: Nurse Practitioner; Nurse Practitioner Family; Admitting Provider Internal Medicine Adolescent Medicine; Emergency Provider Student in an Organized Health Care Education/Training Program; PCP Nurse Practitioner Family; Visit Provider Internal Medicine Adolescent Medicine
DX: N17.9 Acute kidney failure, unspecified (principal); E86.0 Dehydration; D61.818 Other pancytopenia; K80.20 Calculus of gallbladder without cholecystitis without obstruction; F39 Unspecified mood [affective] disorder; N20.0 Calculus of kidney; F41.9 Anxiety disorder, unspecified; K21.9 Gastro-esophageal reflux disease without esophagitis; E78.5 Hyperlipidemia, unspecified; I10 Essential (primary) hypertension; E66.9 Obesity, unspecified; Z91.09 Other allergy status, other than to drugs and biological substances; Z68.33 Body mass index [BMI] 33.0-33.9, adult; Z79.899 Other long term (current) drug therapy
CPT/HCPCS: 36415; 71045; 74176; 80048; 80053; 81001; 83735; 85025; 87507; 87631; 96360; 96372; 97162; 99285; G0378; J1650; J7030

== ENCOUNTER 2025-07-22 11:12 | Outpatient (CLI) | payer MEDICARE, OTHER, SELFPAY ==
--- OUTSIDE RECORDS SUMMARY | 2025-07-22 11:50 | XMS_ITS | Clinical Summary ---
Author Organization [facility] Address [address] [place] [address] Phone Care Team Providers Care Hyperion Developer Name Role Phone Unavailable Primary Care [...] to complete this topic Insurance [facility] MEDICARE [facility] [place] MEDICAID [place] OUT [facility] COMM[place] PLAN [place] [facility] DUAL COMPLETE HMO KYDSNP
[2025-07-22 11:57] LABS: Hematocrit 38.0 % (42.0-52.0); Hemoglobin 12.3 g/dL (14.1-18.0); Immature Granulocytes % 1.9 %; Mean Corpuscular HGB Conc 32.4 g/dL (31.8-35.4); Mean Corpuscular Hemoglobin 29.1 pg (27.0-31.2); Mean Corpuscular Volume 90.0 fl (80-94); Nucleated Red Blood Cells % 0 %; Platelet Count 201 K/mm3 (142-424); Red Blood Count 4.22 M/mm3 (4.60-6.20); Red Cell Distribution Width-SD 42.2 fL; Reticulocyte % (Auto) 1.9 % (0.9-3.2); White Blood Count 6.2 K/mm3 (4.8-10.8)
[2025-07-22 12:32] LABS: Alanine Aminotransferase 14 U/L (12-78); Albumin Level 3.9 g/dl (3.5-5.0); Albumin/Globulin Ratio 1.2 (1.1-1.8); Alkaline Phosphatase 59 U/L (38-126); Anion Gap 8.9 mEq/L (5-15); Aspartate Amino Transferase 20 U/L (17-59); Bilirubin,Total 0.7 mg/dl (0.2-1.3); Blood Urea Nitrogen 10 mg/dl (9-20); Calcium 9.2 mg/dl (8.4-10.2); Carbon Dioxide 29 mmol/L (22.0-30.0); Chloride 102 mmol/L (98-107); Creatinine,Serum 1.00 mg/dl (0.66-1.25); Estimated Glomerular Filt Rate 77 ml/min (>60); GFR (African American) 93 ML/MIN (>60); Globulin 3.2 g/dL (1.3-3.2); Glucose 109 mg/dl (74-100); Iron 98 ug/dL (49-181); Potassium 3.9 mmoL/L (3.5-5.1); Sodium 136 mmol/L (136-145); Total Protein,Serum 7.1 g/dl (6.3-8.2)
[2025-07-22 12:41] LABS: Total Iron Binding Capacity 325 ug/dL (261-462)
[2025-07-22 13:07] LABS: Ferritin 104 ng/ml (17.9-464)
[2025-07-22 13:21] LABS: Vitamin B12 787 pg/mL (239-931)
[2025-07-22 16:32] LABS: Folate > 20.00 ng/mL
== END 2025-07-22 23:59 | disposition home or self-care (01) ==
LOC: LAB 11:12
PROVIDERS: PCP Nurse Practitioner Family; Visit Provider Internal Medicine Medical Oncology
DX: D69.6 Thrombocytopenia, unspecified (principal); D61.818 Other pancytopenia
CPT/HCPCS: 36415; 80053; 82607; 82728; 82746; 83010; 83540; 83550; 83615; 85025; 85044; 86880

== ENCOUNTER 2025-08-25 08:56 | Emergency (ER) | payer MEDICARE, OTHER, SELFPAY ==
[2025-08-25 08:56] VITALS: BP 124/59; PULSE 96; RESP 16; TEMP 37.1; O2SAT 99; BMI 32.8
--- NOTE | 2025-08-25 09:02 | HMH.EDGENADL ---
Discharge Plan Disposition Patient Disposition: Left Against Medical Advice Prescriptions Prescriptions: No Action quetiapine 100 mg tablet 100 mg PO HS Qty: 30 11RF lisinopril 10 mg tablet 10 mg PO DAILY Qty: 30 11RF divalproex 500 mg tablet,delayed release (DR/EC) 500 mg PO BID Qty: 60 11RF hydroxyzine pamoate 50 mg capsule 50 mg PO Q6HP PRN (Reason: Anxiety) simvastatin 40 mg tablet 40 mg PO HS pantoprazole 20 mg tablet,delayed release (DR/EC) 20 mg PO DAILY hydrochlorothiazide 12.5 mg tablet 12.5 mg PO DAILY albuterol sulfate [Ventolin HFA] 90 mcg/actuation HFA aerosol inhaler 1 puff INHALATION Q6H PRN (Reason: soa) ondansetron 4 mg Tablet,Disintegrating 4 mg PO DAILYP PRN (Reason: NAUSEA/VOMITING) famotidine 20 mg tablet 20 mg PO BID cholecalciferol (vitamin D3) 1,250 mcg (50,000 unit) capsule 50,000 unit PO FR multivit with min-folic acid [Vitajoy Adult Multi] 200 mcg Tablet,Chewable 1 tab PO DAILY Referrals Follow up/Referrals: Tere Kidd APRN [Primary Care Provider, Medical] - See instructions Clinical Impressions Clinical Impression: Left against medical advice, CHI (closed head injury) Print Language Print Language: Swedish Discharge ED Provider: Fritz Myles Adult HPI General Chief complaint: Fall Stated complaint: Fall Time Seen by Provider: 08/25/25 09:02 History of Present Illness HPI narrative: Patient is a 59-year-old male with history of frequent emergency department visits for similar complaints has a history of anxiety, GERD, hypertension, hyperlipidemia, is at [facility]. Called EMS for reported fall. Was found covered in stool. This is not the first time that this has happened. He reports that he had a grainy fall . Where he was attempting to sit down in a chair and slipped and fell backwards hitting his head. He did not lose consciousness. He does not take any blood thinners. He was able to get up and walk after this. He reports a mild posterior headache, but denies any other symptoms. Denies any chest pain shortness of breath, nausea, vomiting, fevers or other infectious symptoms. Denies any dysuria hematuria. Denies any flank pain. He reports to me that he has been having diarrhea since yesterday after eating too many doughnuts, but nursing staff reports that it was formed stool that he had. No blood. He reports that he initially had some numbness in his bilateral legs distally, but that is resolved. Denies any back pain or difficulty urinating or saddle anesthesia. Related Data Home Medications ?Medication ?Instructions ?Recorded ?Confirmed hydrochlorothiazide 12.5 mg tablet 12.5 mg PO DAILY 07/19/23 07/22/25 Held on 07/12/25. Instructions: Resume on 07/22/25. Please hold your medication until follow-up with your PCP to discuss your blood pressure and renal function re-evaluation. hydroxyzine pamoate 50 mg capsule 50 mg PO Q6HP PRN Anxiety 07/19/23 07/22/25 pantoprazole 20 mg tablet,delayed 20 mg PO DAILY 07/19/23 07/22/25 release simvastatin 40 mg tablet 40 mg PO HS 07/19/23 07/22/25 albuterol sulfate 90 mcg/actuation 1 puff inhalation Q6H PRN soa 07/10/25 07/22/25 aerosol inhaler (Ventolin HFA) cholecalciferol (vitamin D3) 1,250 50,000 unit PO FR 07/11/25 07/22/25 mcg (50,000 unit) capsule famotidine 20 mg tablet 20 mg PO BID 07/11/25 07/22/25 multivitamin with minerals-folic 1 tab PO DAILY 07/11/25 07/22/25 acid 200 mcg chewable tablet (Vitajoy Adult Multi) ondansetron 4 mg disintegrating 4 mg PO DAILYP PRN NAUSEA/VOMITING 07/11/25 07/22/25 tablet Previous Rx's ?Medication ?Instructions ?Recorded divalproex 500 mg tablet,delayed 500 mg PO BID #60 tabs 02/23/23 release lisinopril 10 mg tablet 10 mg PO DAILY #30 tabs 02/23/23 quetiapine 100 mg tablet 100 mg PO HS #30 tabs 02/23/23 Allergies Allergy/AdvReac Type Severity Reaction Status Date / Time pollen extracts Allergy Other Verified 07/22/25 10:26 [facility] Disclaimer: The information contained in this section may have been updated after the patient was seen, as this information can be updated by other users. Medical History Anxiety GERD (gastroesophageal reflux disease) HTN (hypertension) HLD (hyperlipidemia) Family History Other No significant family history Social History Smoking Status: Never smoker alcohol intake: never current occupational status: unemployed Travel in the last 8 weeks?: None Have you lived/traveled outside [place] in past 30 days?: No Contact w/someone who lives/traveled outside US past 30 days?: No Exposure to someone with infectious disease in past 14 days?: No Do you have a fever (greater than 100.4 F or 38 C)?: No Have you tested positive for COVID-19?: No Exposed to someone with COVID-19 in past 14 days?: No Do you have a sore throat?: No Do you have a cough?: No Do you have any weakness?: No Do you have any diarrhea?: No Are you experiencing any unusual bleeding?: No Do you have any muscle aches/pain?: No Do you have any abdominal pain?: No Are you experiencing loss of taste or smell?: No Other Medical History Have you received the Flu Vaccine for this season: No Have you received the Pneumonia Vaccine: No ROS Obtained: Yes All systems reviewed & no additional complaints except as documented Physical Exam General General appearance: alert, in no apparent distress and obese Head Head exam: atraumatic and normocephalic Eye Eye exam: Present PERRL and EOMI ENT ENT exam: Present normal oropharynx Neck Neck exam: Present full ROM and trachea midline Chest Chest inspection: Present symmetric chest wall rise Respiratory Respiratory exam: Present normal lung sounds bilaterally; Absent stridor Cardiovascular Cardiovascular exam: Present regular rate and normal rhythm Abdominal Exam Abdominal exam: Present soft; Absent distention or tenderness Extremities Exam Extremities exam: Present full ROM Back Exam Back exam: Present normal inspection and full ROM; Absent tenderness Neurological Exam Neurological exam: Present alert and oriented X3 Psychiatric Psychiatric exam: Present normal mood Skin Skin exam: Present warm and dry Medical Decision Making Medical Records Screening: Per USPSTF and CDC recommendations, given the prevalence of disease in our region, it is our hospital?s policy to screen for HIV and viral Hepatitis for all patients aged 18 and over and those with ongoing risk factors. Kenan Inquiry Pt receiving controlled substance: No Vital Signs: 08/25/25 08:56 08/25/25 09:18 08/25/25 09:30 Temperature 98.8 F Temperature Source Oral Pulse Rate 105 H 90 Pulse Rate [Right Brachial] 96 H Respiratory Rate 16 Blood Pressure 123/79 121/68 Blood Pressure [Right Arm] 124/59 L Blood Pressure Mean [Right Arm] 80 Blood Pressure Source Blood Pressure Source [Right Arm] Automatic Cuff Blood Pressure Position Blood Pressure Position [Right Arm] Sitting 02 Sat by Pulse Oximetry 99 96 96 Oxygen Delivery Method Room Air Room Air Room Air 08/25/25 10:33 Temperature 98.8 F Temperature Source Oral Pulse Rate 92 H Pulse Rate [Right Brachial] Respiratory Rate 16 Blood Pressure 121/68 Blood Pressure [Right Arm] Blood Pressure Mean [Right Arm] Blood Pressure Source Automatic Cuff Blood Pressure Source [Right Arm] Blood Pressure Position Sitting Blood Pressure Position [Right Arm] 02 Sat by Pulse Oximetry Oxygen Delivery Method Room Air Lab Data Lab Results 08/25/25 09:48: WBC 12.7 H, RBC 4.42 L, Hgb 13.0 L, Hct 39.3 L, MCV 88.9, MCH 29.4, MCHC 33.1, RDW 12.6, Plt Count 162, MPV 7.9, Neut % (Auto) 86.6 H, Lymph % (Auto) 5.1 L, Hudspeth % (Auto) 7.5, Eos % (Auto) 0.2, Baso % (Auto) 0.2, Neut # (Auto) 11.0 H, Lymph # (Auto) 0.7, Hudspeth # (Auto) 1.0, Eos # (Auto) 0.0, Baso # (Auto) 0.0, Sodium 138, Potassium 4.5, Chloride 102, Carbon Dioxide 24, Anion Gap 16.5 H, BUN 10, Creatinine 0.70, Estimated Creat Clear 157, Estimated GFR 116, Est GFR ( Amer) 141, Glucose 112 H, Calcium 8.9, Magnesium 1.9, Total Bilirubin 0.7, AST 48, ALT 37, Alkaline Phosphatase 76, Total Protein 7.6, Albumin 4.2, Globulin 3.4 H, Albumin/Globulin Ratio 1.2 08/25/25 09:48 08/25/25 09:48 Orders (Tests/Meds): ORDERS Category Date Time Status CT cervical spine wo con Stat Cat Scan 08/25/25 09:[address] head/brain wo con Stat Cat Scan 08/25/25 09:44 Taken Complete Blood Count Auto Diff Stat Lab 08/25/25 09:48 Completed Comprehensive Metabolic Panel Stat Lab 08/25/25 09:48 Completed Magnesium Stat Lab 08/25/25 09:48 Completed ECG Data Tracing #1: I reviewed this ECG and interpreted as documented below: Independently interpreted by myself demonstrate normal sinus rhythm with no obvious acute ischemic ST change. Intervals are within normal limits. Medical Decision Narrative: Patient is a 59-year-old male with frequent emergency department visits for similar complaints. He is at [facility]. He reportedly had a grainy fall when he slipped trying to sit back in a chair and struck his head. He denies loss consciousness. On arrival, he is afebrile hemodynamically stable no acute distress on exam is warm and well-perfused with full and equal pulses. Cranial nerves II through XII are intact, pupils are equal and reactive, gross motor and sensory in upper and lower extremities are intact. He has no obvious trauma to his calvarium no step-offs deformities no step-offs deformities along the midline spine. No trauma anywhere on his body on full skin examination. He is grossly neurologically intact. Low suspicion for head trauma, but given cannot rule out by Nexus criteria will obtain CT head and CT cervical spine. Will obtain basic hematologic labs given his report of diarrhea, though he has no reproducible abdominal tenderness low suspicion for acute intra-abdominal pathology but will screen with abdominal labs. He reports that he did not syncopized, but will screen for higher syncope with an EKG. EKG nonischemic. CT head independently interpreted by myself demonstrate no evidence of ICH. Hematologic labs initially reviewed by myself demonstrate mild anemia with a hemoglobin of 13 and a mild leukocytosis to 12.7 without significant lecture light derangement. The final reads are not back and his complete set of labs are not back yet. However, patient is ambulatory about the emergency department he is alert and oriented would like to leave AGAINST MEDICAL ADVICE. He is able to verbalize back to me the risks of leaving including ICH, arrhythmia and . Critical Care Critical Care Time Critical Care Time: No
[2025-08-25 09:18] VITALS: BP 123/79; PULSE 105; O2SAT 96
[2025-08-25 09:30] VITALS: BP 121/68; PULSE 90; O2SAT 96
--- NOTE | 2025-08-25 09:44 | CT_ITS ---
PROCEDURE INFORMATION: Exam: CT Head Without Contrast Exam date and time: 08/25/2025 10:01 AM Age: 59 years old Clinical indication: Injury or trauma; Fall; Concussion/head injury; Without loss of consciousness; Additional info: Fall head trauma TECHNIQUE: Imaging protocol: Computed tomography of the head without contrast. Radiation optimization: All CT scans at this facility use at least one of these dose optimization techniques: automated exposure control; mA and/or kV adjustment per patient size (includes targeted exams where dose is matched to clinical indication); or iterative reconstruction. COMPARISON: CT HEAD/BRAIN WO CON 09/24/2024 1:54 AM FINDINGS: Brain: Cerebellar tonsils are in normal anatomic position. There is no intracranial bleed. There is stable mild, diffuse cerebral atrophy. Stable periventricular white matter small vessel ischemic changes. There is no midline shift. Cerebral ventricles: No ventriculomegaly. Unremarkable. Pituitary gland and sella: Sella is unremarkable. Paranasal sinuses: Paranasal sinuses are unremarkable. Mastoid air cells: Mastoid air cells are unremarkable. Orbital cavities: Orbits are unremarkable. Bones: The visible skeletal structures are unremarkable. Soft tissues: The soft tissues are unremarkable. Vasculature: Unremarkable. IMPRESSION: 1. No acute intracranial pathology. 2. Stable chronic senescent findings.
--- NOTE | 2025-08-25 09:44 | CT_ITS ---
PROCEDURE INFORMATION: Exam: CT Cervical Spine Without Contrast Exam date and time: 08/25/2025 10:02 AM Age: 59 years old Clinical indication: Injury or trauma; Fall; Sprain or strain, cervical ligaments; Additional info: Fall head trauma TECHNIQUE: Imaging protocol: Computed tomography of the cervical spine without contrast. Radiation optimization: All CT scans at this facility use at least one of these dose optimization techniques: automated exposure control; mA and/or kV adjustment per patient size (includes targeted exams where dose is matched to clinical indication); or iterative reconstruction. COMPARISON: CT CERVICAL SPINE WO CON 09/24/2024 1:56 AM FINDINGS: Bones: The spinal canal and its contents are grossly unremarkable. Atlantodental interval is normal. Cervical alignment is normal. No acute skeletal pathology. Brain: Cerebellar tonsils are in normal anatomic position. Mastoid air cells: Mastoid air cells are unremarkable. Lungs: Visible portions of the lungs are unremarkable. Soft tissues: There is no prevertebral soft tissue swelling. The remaining soft tissue is unremarkable. Other findings: The visible mediastinal structures are unremarkable. IMPRESSION: No acute skeletal pathology.
--- NOTE | 2025-08-25 09:56 | ECG_ITS ---
APPROVED REPORT Exam: Resting ECG HR:98 bpm ECG Measurements Heart Rate 98 AXES ME 156 P 67 QRSd 95 QRS 88 QT 329 T 56 QTc 384 Conclusion SINUS RHYTHM NORMAL ECG Electronically signed by : MARJORIE MARADIAGA, 08/27/2025 03:12:41
[2025-08-25 10:00] LABS: Hematocrit 39.3 % (42.0-52.0); Hemoglobin 13.0 g/dL (14.1-18.0); Immature Granulocytes % 0.4 %; Mean Corpuscular HGB Conc 33.1 g/dL (31.8-35.4); Mean Corpuscular Hemoglobin 29.4 pg (27.0-31.2); Mean Corpuscular Volume 88.9 fl (80-94); Nucleated Red Blood Cells % 0 %; Platelet Count 162 K/mm3 (142-424); Red Blood Count 4.42 M/mm3 (4.60-6.20); Red Cell Distribution Width-SD 41.2 fL; White Blood Count 12.7 K/mm3 (4.8-10.8)
[2025-08-25 10:08] LABS: Alanine Aminotransferase 37 U/L (12-78); Albumin Level 4.2 g/dl (3.5-5.0); Albumin/Globulin Ratio 1.2 (1.1-1.8); Alkaline Phosphatase 76 U/L (38-126); Anion Gap 16.5 mEq/L (5-15); Aspartate Amino Transferase 48 U/L (17-59); Bilirubin,Total 0.7 mg/dl (0.2-1.3); Blood Urea Nitrogen 10 mg/dl (9-20); Calcium 8.9 mg/dl (8.4-10.2); Carbon Dioxide 24 mmol/L (22.0-30.0); Chloride 102 mmol/L (98-107); Creatinine Clearance Estimated 157 mL/min (50-200); Creatinine,Serum 0.70 mg/dl (0.66-1.25); Estimated Glomerular Filt Rate 116 ml/min (>60); GFR (African American) 141 ML/MIN (>60); Globulin 3.4 g/dL (1.3-3.2); Glucose 112 mg/dl (74-100); Magnesium 1.9 mg/dl (1.6-2.3); Potassium 4.5 mmoL/L (3.5-5.1); Sodium 138 mmol/L (136-145); Total Protein,Serum 7.6 g/dl (6.3-8.2)
--- NOTE | 2025-08-25 10:13 | PC.NURSE ---
Patient called out and stated that he wants the caravan to come and pick him up. Patient advised that he was not ready to be discharged. He states he wants to leave anyway. MD advised that patient wants to sign out.
--- NOTE | 2025-08-25 10:20 | PC.NURSE ---
called patients [facility] she approved patient signing out AMA.
--- NOTE | 2025-08-25 10:32 | PC.NURSE ---
Gracie called for transport for patient.
[2025-08-25 10:33] VITALS: BP 121/68; PULSE 92; RESP 16; TEMP 37.1; O2SAT 97
== END 2025-08-25 10:37 | disposition left against medical advice (07) ==
PROVIDERS: Emergency Provider Emergency Medicine; PCP Nurse Practitioner Family
DX: S09.90XA Unspecified injury of head, initial encounter (principal); I10 Essential (primary) hypertension; E78.5 Hyperlipidemia, unspecified; W19.XXXA Unspecified fall, initial encounter
CPT/HCPCS: 70450; 72125; 80053; 83735; 85025; 93005; 99285